=== PATIENT | male | born 1945 | race Caucasian/White ===

== ENCOUNTER 2016-08-26 20:20 | Emergency (ER) | payer OTHER, MEDICARE ==
--- NOTE | 2016-08-26 20:29 | PDOC ---
History of Present Illness - General History Source: Patient Exam Limitations: No Limitations - History of Present Illness Initial Comments: 08/26/16 20:30 The patient is a 70 year old male with history significant for hypertension, hyperlipidemia, and atrial fibrillation on Eliquis, who presents to the ED complaining of 3 days of tingling to the left side of the face, described as "sudden bursts of electricity", not radiating or persisting, with associated symptoms of nausea, lightheadedness, and shortness of breath today. He states he had similar symptoms a few weeks ago after taking 12 days of antibiotics for H. pylori found on recent endoscopy/colonoscopy. He was seen by his interist last with no significant findings. The patient denies chest pain or palpitations. He denies headache, visual changes, or focal weakness. He denies abdominal pain, vomiting, or diarrhea. He denies fever or chills. He denies recent travel. <Lesly Medina - Last Filed: 08/26/16 21:28> <Mickey Vasques - Last Filed: 08/27/16 03:15> - General Chief Complaint: Lightheaded Stated Complaint: NAUSEA, LIGHTHEADEDNESS, TINGLING TO LEFT FACE Time Seen by Provider: 08/26/16 20:29 Past History <Lesly Medina - Last Filed: 08/26/16 21:28> - Past Medical History Cardiac Disorders: Yes (arrhythmia, afib) HTN: Yes Hypercholesterolemia: Yes Kidney Stones: Yes Psychiatric Problems: Yes (anxiety) Suicide Attempt (Hx): No - Surgical History Cardiac Surgery: Yes (CARDIAC ABLATION FEB 2015) Orthopedic Surgery: (right knee sx) - Immunization History Immunization Up to Date: Yes - Psycho/Social/Smoking Cessation Hx Anxiety: Yes Suicidal Ideation: No Smoking Status: No Smoking History: Never smoked Have you smoked in the past 12 months: No Number of Cigarettes Smoked Daily: 0 Hx Alcohol Use: No Drug/Substance Use Hx: No Substance Use Type: None Hx Substance Use Treatment: No <Mickey Vasques - Last Filed: 08/27/16 03:15> - Past Medical History Allergies/Adverse Reactions: Allergies Allergy/AdvReac Type Severity Reaction Status Date / Time amoxicillin [Amoxicillin] Allergy Verified 08/26/16 20:23 Home Medications: Ambulatory Orders Apixaban [Eliquis] 5 mg PO BID 12/17/15 Diazepam [Valium] 5 mg PO ASDIR PRN 12/17/15 Metoprolol Succinate [Toprol Xl] 50 mg PO HS 12/17/15 Ondansetron HCl [Zofran] 4 mg PO QID PRN #12 tablet 08/26/16 Review of Systems - Review of Systems Able to Perform ROS?: Yes Comments:: 08/26/16 20:33 GENERAL/CONSTITUTIONAL: No fever or chills. HEAD, EYES, EARS, NOSE AND THROAT: No change in vision. No ear pain or discharge. No sore throat CARDIOVASCULAR: +Lightheadedness, shortness of breath. No chest pain or palpitations. RESPIRATORY: No cough, wheezing, or hemoptysis. GASTROINTESTINAL: +Nausea. No abdominal pain, vomiting, diarrhea or constipation. GENITOURINARY: No dysuria, frequency, or change in urination. MUSCULOSKELETAL: No joint or muscle swelling or pain. No neck or back pain. SKIN: No rash NEUROLOGIC: +L facial tingling. No headache, vertigo, loss of consciousness, or change in strength. ENDOCRINE: No increased thirst. No abnormal weight change. HEMATOLOGIC/LYMPHATIC: No anemia, easy bleeding, or history of blood clots. ALLERGIC/IMMUNOLOGIC: No hives or skin allergy. <Lesly Medina - Last Filed: 08/26/16 21:28> *Physical Exam - Physical Exam Comments: 08/26/16 20:44 GENERAL: Awake, alert, and fully oriented, in no acute distress HEAD: No signs of trauma EYES: PERRLA, EOMI, sclera anicteric, conjunctiva clear ENT: Auricles normal inspection, hearing grossly normal, nares patent, oropharynx clear without exudates. Moist mucosa NECK: Normal ROM, supple, no lymphadenopathy, JVD, or masses LUNGS: Breath sounds equal, clear to auscultation bilaterally. No wheezes, and no crackles HEART: Irregular rhythm, normal S1 and S2, no murmurs, rubs or gallops ABDOMEN: Soft, nontender, normoactive bowel sounds. No guarding, no rebound. No masses EXTREMITIES: Normal range of motion, no edema. No clubbing or cyanosis. No cords, erythema, or tenderness NEUROLOGICAL: Cranial nerves II through XII grossly intact. Normal speech, normal gait. Sensation intact throughout. 5/5 strength x all four extremities. No nystagmus, no pronator drift. SKIN: Warm, Dry, normal turgor, no rashes or lesions noted. <Lesly Medina - Last Filed: 08/26/16 21:28> ED Treatment Course - LABORATORY CBC & Chemistry Diagram: 08/26/16 20:40 08/26/16 20:40 <Lesly Medina - Last Filed: 08/26/16 21:28> - LABORATORY CBC & Chemistry Diagram: 08/26/16 20:40 08/26/16 20:40 <Mickey Vasques - Last Filed: 08/27/16 03:15> Medical Decision Making - Medical Decision Making 08/27/16 03:14 cxr: clayton, as read by me, referred to radiology for definitive results EKG: sinus at 70; nl axis, nl intervals, PVCs observed x 3 hours in ED with resolution of all symptoms elevated WBC noted ? dehydration (eleavted hct too) versus infection--the latter is not apparent stabel for dc with outpt PCP fu <Mickey Vasques - Last Filed: 08/27/16 03:15> *DC/Admit/Observation/Transfer - Attestations Scribe Attestion: 08/26/16 20:45 Documentation prepared by Lesly Medina, acting as medical administrative specialist for Mickey Vasques MD. <Lesly Medina - Last Filed: 08/26/16 21:28> <Mickey Vasques - Last Filed: 08/27/16 03:15> Diagnosis at time of Disposition: Nausea - Discharge Dispostion Disposition: HOME Condition at time of disposition: Stable - Prescriptions Prescriptions: Ondansetron HCl [Zofran] 4 mg PO QID PRN #12 tablet PRN Reason: Nausea - Patient Instructions Printed Discharge Instructions: DI for Nausea -- Adult
[2016-08-26] MEDS ORDERED: ONDANSETRON 4 MG TABLET PO ONE ×2 (20:30→20:49)
[2016-08-26 20:31] VITALS: TEMP 98; BMI 29.8
[2016-08-26 21:01] LABS: BASOPHIL 1.7 % (0-2.0); MCH 32.2 pg (25.7-33.7); MCHC 34.3 g/dl (32.0-35.9); MEAN PLT VOLUME 8.8 fl (7.5-11.1); NEUTROPHILS 58.1 % (42.8-82.8); PLATELET COUNT 189 K/MM3 (134-434); RDW 12.9 % (11.9-15.9); WHITE BLOOD COUNT 12.2 K/mm3 (4.0-10.0)
[2016-08-26 21:10] LABS: ALBUMIN 4.1 g/dl (3.5-5.0); BILIRUBIN,TOTAL 0.5 mg/dl (0.2-1.0); CALCIUM 8.8 mg/dl (8.4-10.2); CREATININE 1.3 mg/dl (0.6-1.3); TOT PROT 6.8 g/dl (6.4-8.3)
[2016-08-26 21:11] LABS: CPK(DFH) 54 IU/L (38-174)
[2016-08-26 21:29] LABS: TROPONIN I (DFP) < 0.03 ng/ml (0.03-0.50)
[2016-08-26 22:20] VITALS: BP 134/77; PULSE 62
--- NOTE | 2016-08-27 17:35 | EKG ---
Test Reason : Blood Pressure : / mmHG Vent. Rate : 070 BPM Atrial Rate : 070 BPM P-R Int : 186 ms QRS Dur : 096 ms QT Int : 432 ms P-R-T Axes : 041 036 044 degrees QTc Int : 466 ms SINUS RHYTHM WITH FREQUENT PREMATURE VENTRICULAR COMPLEXES AND PREMATURE ATRIAL COMPLEXES WHEN COMPARED WITH ECG OF 13-OCT-2014 19:01, PREMATURE VENTRICULAR COMPLEXES ARE NOW PRESENT PREMATURE ATRIAL COMPLEXES ARE NOW PRESENT Confirmed by MD MEGHNA, AYESHA ([id number]) on 08/27/2016 5:35:05 PM Referred By: GABRIEL CERVANTES Confirmed By:AYESHA COFFMAN MD
== END 2016-08-26 23:02 | disposition home or self-care (01) ==
LOC: FER 20:20
DX: R11.0 Nausea (principal); I10 Essential (primary) hypertension; E78.5 Hyperlipidemia, unspecified; I48.91 Unspecified atrial fibrillation; Z79.01 Long term (current) use of anticoagulants; Z87.442 Personal history of urinary calculi; F41.9 Anxiety disorder, unspecified
CPT/HCPCS: 36415; 71020-TC; 80053; 82550; 84484; 85025; 93005; 99285-25

== ENCOUNTER 2017-10-20 19:06 | Emergency (ER) | payer OTHER, MEDICARE ==
--- NOTE | 2017-10-20 19:08 | PDOC ---
History of Present Illness - General History Source: Patient Exam Limitations: No Limitations - History of Present Illness Initial Comments: 10/20/17 19:59 The patient is a 72 year old male with a significant PMH of arrhythmia, atrial fib, hypertension, hypercholesterolemia, and anxiety who presents to the emergency department with right ankle pain. The patient reports that he fell 4 days ago while bending over to fix his car. He reports that he lost his balance when he fell over. He states that he fell forward on his hands and twisted his right ankle. He denies any LOC or head injury. . The patient reports that since his fall he had been walking around on his foot . He reports that he has been icing his right ankle since his fall 4 days ago but reports that his right ankle pain has worsened. The patient reports that he noticed increased swelling yesterday. It is noted that the patient reports complaint of a headache.The patient denies any chest pain, shortness of breath,or dizziness. The patient denies any fever, chills, nausea, vomit, diarrhea or constipation. The patient denies any urinary symptoms. The patient denies any other complaints. PAST MEDICAL HISTORY: arrhythmia, atrial fib, hypertension, hypercholesterolemia, and anxiety PAST SURGICAL HISTORY: cardiac ablation(2014), right knee surgery. FAMILY HISTORY: no pertinent history SOCIAL HISTORY: none reported MEDICATIONS: as per nursing notes ALLERGIES: Amoxicillin General: No fevers or chills, no weakness, no weight loss HEENT: No change in vision. No sore throat,. No ear pain CardioVascular: No chest pain or shortness of breath Respiratory:No cough, or wheezing. Gastrointestinal: no nausea, vomiting, diarrhea or constipation, No rectal bleeding Genitourinary: No dysuria, hematuria, or frequency Musculoskeletal: (+) right ankle pain. Neurologic: (+)headache. No vertigo, dizziness or loss of consciousness Psychiatric: nor depression Skin: No rashes or easy bruising Endocrine: no increased thirst or abnormal weight change Allergic: no skin or latex allergy All other systems reviewed and normal GENERAL: The patient is awake, alert, and fully oriented, in no acute distress. HEAD: Normal with no signs of trauma. EYES: Pupils equal, round and reactive to light, extraocular movements intact, sclera anicteric, conjunctiva clear. EXTREMITIES: (+) ecchymosis, swelling and tenderness over lateral malleolus. No tenderness to base of fifth metatarsal.vascular distals intact. NEUROLOGICAL: Normal speech, normal gait. PSYCH: Normal mood, normal affect. SKIN: Warm, Dry, normal turgor, no rashes or lesions noted. 10/20/17 20:01 <Alina Strong - Last Filed: 10/20/17 20:01> - General History Source: Patient Exam Limitations: No Limitations - History of Present Illness Initial Comments: 10/20/17 19:42 A portion of this note was documented by scribe services under my direction. I have reviewed the details of the note, within reason, and agree with the documentation. The case summary and management plan written by me. Assessment and plan: This is a 72-year-old male who tripped twisting his right ankle approximately 4 days ago. Patient had an x-ray that was positive for disruption of the syndesmosis and probable occult fracture. Patient has been walking on the ankle for the last 4 days and has been overusing it and came in for evaluation because it is hurting more than it had been. Patient otherwise said he did not hit his head 4 days ago however he is complaining of a headache since the fall. So will obtain a head CT in addition to splinting the ankle. X-ray: Disruption of the syndesmosis with probable occult fracture Procedure note OCL posterior ankle splint applied neurovascular post splint application intact. Patient tolerated well Head CT: No acute pathology some age related changes otherwise poonam <Farooq Davies I - Last Filed: 10/20/17 21:58> - General Chief Complaint: Pain, Acute Stated Complaint: TRIPPED AND FELL INJURING RIGHT ANKLE Time Seen by Provider: 10/20/17 19:07 Past History <Alina Strong - Last Filed: 10/20/17 20:01> - Past Medical History Cardiac Disorders: Yes (arrhythmia, afib) HTN: Yes Hypercholesterolemia: Yes Kidney Stones: Yes Psychiatric Problems: Yes (anxiety) - Surgical History Cardiac Surgery: Yes (CARDIAC ABLATION FEB 2015) Orthopedic Surgery: (right knee sx) - Immunization History Immunization Up to Date: Yes - Suicide/Smoking/Psychosocial Hx Smoking Status: No Smoking History: Never smoked Have you smoked in the past 12 months: No Number of Cigarettes Smoked Daily: 0 Hx Alcohol Use: No Drug/Substance Use Hx: No Substance Use Type: None Hx Substance Use Treatment: No <Farooq Davies I - Last Filed: 10/20/17 21:58> - Past Medical History Allergies/Adverse Reactions: Allergies Allergy/AdvReac Type Severity Reaction Status Date / Time amoxicillin [Amoxicillin] Allergy Verified 10/20/17 19:08 Home Medications: Ambulatory Orders Apixaban [Eliquis] 5 mg PO BID 12/17/15 Diazepam [Valium] 5 mg PO ASDIR PRN 12/17/15 Metoprolol Succinate [Toprol Xl] 12.5 mg PO HS 12/17/15 Losartan Potassium 12.5 mg PO DAILY 10/20/17 *Physical Exam - Vital Signs Last Vital Signs Temp Pulse Resp BP Pulse Ox 98.6 F 82 16 167/90 97 10/20/17 19:12 10/20/17 19:12 10/20/17 19:12 10/20/17 19:12 10/20/17 19:12 <Alina Strong - Last Filed: 10/20/17 20:01> *DC/Admit/Observation/Transfer - Attestations Scribe Attestion: 10/20/17 20:00 Documentation prepared by Alina Strong, acting as medical equipment repairer for Farooq Davies MD. <Alina Strong - Last Filed: 10/20/17 20:01> - Discharge Dispostion Admit: No <Farooq Davies I - Last Filed: 10/20/17 21:58> Diagnosis at time of Disposition: Closed right ankle fracture Qualifiers: Encounter type: initial encounter Qualified Code(s): S82.891A - Other fracture of right lower leg, initial encounter for closed fracture - Discharge Dispostion Disposition: HOME Condition at time of disposition: Stable - Patient Instructions Additional Instructions: For the pain take ibuprofen 2 or 3 tablets 3 times a day with food don't take on an empty stomach. Alternately you can also take Tylenol. Follow-up with the orthopedist call Dr. Reid at [phone] in the morning for an appointment. Use your crutches for ambulation. Return to the emergency department immediately with ANY new, persistent or worsening symptoms. Continue any medications as previously prescribed by your physician. You should follow up with your primary doctor as soon as possible regarding today's emergency department visit. . Please make sure your doctor reviews the results of your emergency evaluation. Thank you for coming to the Emergency Department today for your care. It was a pleasure to see you today. Please note that your evaluation is INCOMPLETE until you follow-up with your doctor.
[2017-10-20 19:21] VITALS: BP 167/90; PULSE 82; TEMP 98.6; BMI 29.0
[2017-10-20] MEDS ORDERED: IBUPROFEN 600 MG TABLET (FP) PO ONE ×2 (21:59→22:00)
[2017-10-20] MEDS: IBUPROFEN 600 MG TABLET (FP) PO ONE ×2 (22:01→22:07)
[2017-10-20] MEDS ORDERED: ACETAMINOPHEN 500 MG TABLET (FP) ONE (22:03)
[2017-10-20] MEDS ORDERED: ACETAMINOPHEN 500 MG TABLET (FP) PO ONE (22:07)
== END 2017-10-20 22:08 | disposition home or self-care (01) ==
LOC: FER 19:06
PROC: 2W3QX1Z Immobilization of Right Lower Leg using Splint (ICD-10-PCS; principal; 2017-10-20)
DX: S82.891A Other fracture of right lower leg, initial encounter for closed fracture (principal); W01.0XXA Fall on same level from slipping, tripping and stumbling without subsequent striking against object, initial encounter; Y93.89 Activity, other specified; Y92.89 Other specified places as the place of occurrence of the external cause; I10 Essential (primary) hypertension; I48.91 Unspecified atrial fibrillation; E78.00 Pure hypercholesterolemia, unspecified; F41.9 Anxiety disorder, unspecified; Z88.1 Allergy status to other antibiotic agents
CPT/HCPCS: 29515; 70450-TC; 73610-TC-RT-FY; 99281-25

== ENCOUNTER 2018-01-07 13:56 | Emergency (ER) | payer OTHER, MEDICARE ==
[2018-01-07 14:02] VITALS: BMI 29.0
--- NOTE | 2018-01-07 14:24 | PDOC ---
History of Present Illness - General History Source: Patient Exam Limitations: No Limitations - History of Present Illness Initial Comments: 01/07/18 15:16 The patient is a 72 year old male, with a significant PMH of Afib, HTN, HLD, H. pylori and gout, who presents to the emergency department with nausea that began approximately 2 weeks ago. The patient states he has had intermittent nausea that last 2 to 3 minutes for 2 weeks accompanied with posterior neck pain which began 3 days ago, that radiates between the shoulder blades and up and down his head. Patient also notes vague intermittent diffuse abdomen pain. The patient denies chest pain, shortness of breath and headache. Denies fever, chills, vomit, diarrhea and constipation. Denies dysuria, frequency, urgency and hematuria. Allergies: amoxicillin Past surgical history: Cardiac Ablation, right knee surgery Social history: None reported PCP: None reported <Stevie Kern - Last Filed: 01/07/18 15:16> - General History Source: Patient Exam Limitations: No Limitations <Clinton Oconnell - Last Filed: 01/07/18 17:12> - General Chief Complaint: Nausea Stated Complaint: NAUSEA, ABD PAIN Time Seen by Provider: 01/07/18 14:05 Past History <Stevie Kern - Last Filed: 01/07/18 15:16> - Past Medical History Cardiac Disorders: Yes (arrhythmia, A-fib, aortic anuerysm) COPD: No HTN: Yes Hypercholesterolemia: Yes Kidney Stones: Yes Psychiatric Problems: Yes (anxiety) - Surgical History Cardiac Surgery: Yes (CARDIAC ABLATION, FEB 2015) Orthopedic Surgery: (right knee sx) - Immunization History Immunization Up to Date: Yes - Suicide/Smoking/Psychosocial Hx Smoking Status: No Smoking History: Never smoked Have you smoked in the past 12 months: No Number of Cigarettes Smoked Daily: 0 Hx Alcohol Use: No Drug/Substance Use Hx: No Substance Use Type: None Hx Substance Use Treatment: No <Clinton Oconnell - Last Filed: 01/07/18 17:12> - Past Medical History Allergies/Adverse Reactions: Allergies Allergy/AdvReac Type Severity Reaction Status Date / Time amoxicillin [Amoxicillin] Allergy Verified 01/07/18 13:57 Home Medications: Ambulatory Orders Apixaban [Eliquis] 5 mg PO BID 12/17/15 Losartan Potassium 25 mg PO DAILY 10/20/17 Diltiazem [Cardizem -] 120 mg PO DAILY 01/07/18 Pantoprazole Sodium [Protonix] 40 mg PO DAILY #14 tablet. 01/07/18 Ranitidine HCl [Zantac] 150 mg PO BID PRN #14 tablet 01/07/18 Review of Systems - Review of Systems Able to Perform ROS?: Yes Comments:: 01/07/18 15:17 GENERAL/CONSTITUTIONAL: No fever or chills. No weakness. HEAD, EYES, EARS, NOSE AND THROAT: No change in vision. No ear pain or discharge. No sore throat. CARDIOVASCULAR: No chest pain. No shortness of breath. RESPIRATORY: No cough, wheezing, or hemoptysis. GASTROINTESTINAL: +Nausea, +abdomen pain. No vomiting, diarrhea or constipation. GENITOURINARY: No dysuria, frequency, or change in urination. MUSCULOSKELETAL:+Posterior neck pain. No joint or muscle swelling or pain. No back pain. SKIN: No rash NEUROLOGIC: No headache, vertigo, loss of consciousness, or change in strength/ sensation. ALLERGIC/IMMUNOLOGIC: No hives or skin allergy. <Stevie Kern - Last Filed: 01/07/18 15:16> *Physical Exam - Vital Signs Last Vital Signs Temp Pulse Resp BP Pulse Ox 98.1 F 53 L 18 147/92 100 01/07/18 13:56 01/07/18 13:56 01/07/18 13:56 01/07/18 13:56 01/07/18 13:56 - Physical Exam Comments: 01/07/18 15:17 GENERAL: Awake, alert, and fully oriented, in no acute distress HEAD: No signs of trauma EYES: PERRLA, EOMI, sclera anicteric, conjunctiva clear ENT:+ Tenderness to palpation to the right cervical paraspinal muscle. Auricles normal inspection, hearing grossly normal, nares patent, oropharynx clear without exudates. Moist mucosa NECK: Normal ROM, supple, no lymphadenopathy, JVD, or masses LUNGS: Breath sounds equal, clear to auscultation bilaterally. No wheezes, and no crackles HEART: Regular rate and rhythm, normal S1 and S2, no murmurs, rubs or gallops ABDOMEN:+Tenderness to palpation RUQ,epigastric, LUQ, left mid abdomen. Normoactive bowel sounds. No guarding, no rebound. No masses EXTREMITIES: Normal range of motion, no edema. No clubbing or cyanosis. No cords, erythema, or tenderness NEUROLOGICAL: Cranial nerves II through XII grossly intact. Normal speech. SKIN: Warm, Dry, normal turgor, no rashes or lesions noted. HEENT: positive: Tonsillar Exudate <Stevie Kern - Last Filed: 01/07/18 15:16> - Vital Signs Last Vital Signs Temp Pulse Resp BP Pulse Ox 98.1 F 53 L 18 147/92 100 01/07/18 13:56 01/07/18 13:56 01/07/18 13:56 01/07/18 13:56 01/07/18 13:56 <Clinton Oconnell - Last Filed: 01/07/18 17:12> Heart Score/ECG Review #1 ECG reviewed & interpreted by me at: 14:25 01/07/18 14:23 NSR 83 with 1st degree AV block, , occasional sinus arrhythmia, no std/hermes, TWI III, normal axis, normal intervals, QTC 484 msec <Clinton Oconnell - Last Filed: 01/07/18 17:12> ED Treatment Course - LABORATORY CBC & Chemistry Diagram: 01/07/18 14:32 01/07/18 14:32 - ADDITIONAL ORDERS Additional order review: Laboratory Results 01/07/18 14:45 Urine Color Yellow Urine Appearance Clear Urine pH 5.0 Ur Specific [place] < 1.005 L Urine Protein Negative Urine Glucose (UA) Negative Urine Ketones Negative Urine Blood Negative Urine Nitrite Negative Urine Bilirubin Negative Urine Urobilinogen 0.2 Ur Leukocyte Esterase Negative - Medications Given in the ED: ED Medications Discontinued Medications Generic Name Dose Route Start Last Admin Trade Name Freq PRN Reason Stop Dose Admin Acetaminophen 1,000 mg 01/07/18 14:48 01/07/18 15:10 Ofirmev Injection - IVPB 01/07/18 14:49 1,000 mg ONCE ONE Administration Al Hydroxide/Mg Hydroxide 30 ml 01/07/18 14:48 01/07/18 15:00 Mylanta Oral Suspension - PO 01/07/18 14:49 30 ml ONCE ONE Administration <Stevie Kern - Last Filed: 01/07/18 15:16> - LABORATORY CBC & Chemistry Diagram: 01/07/18 14:32 01/07/18 14:32 <Clinton Oconnell - Last Filed: 01/07/18 17:12> Medical Decision Making - Medical Decision Making 01/07/18 14:49 A portion of this note was written by my scribe, under my supervision. Vital Signs Temp Pulse Resp BP Pulse Ox 98.1 F 53 L 18 147/92 100 01/07/18 13:56 01/07/18 13:56 01/07/18 13:56 01/07/18 13:56 01/07/18 13:56 72 year old male with pmh of HTN, HLD, afib on eliquis, hx of H. pylori, p/w nausea x 2 weeks. The patient reports several minutes of intermittent nausea. Occasionally associated with abdominal pain. No vomiting, headache, dizziness, dysuria, diarrhea, fevers, chills. Never had chest pain or shortness of breath. States feels unlike his H. pylori. Last colonoscopy and endoscopy about 1 year ago which revealed his H. Pylori, which he had taken medications for. The patient is unable to state what exacerbates or improves pain. He is also unsure of how to describe the pain. States that he tried to hold off from coming in but states because of persistence of symptoms came in. Pt also notes hx of thoracic aortic aneurysm that is currently under evaluation. It is unclear what the etiology of the patient's symptoms are. This could certainly be GERD, gastritis, or PUD given the symptoms. Will trial GERD medications and reassess. However, given comorbidities, will need to r/o ACS or cardiac equivalent, though seems quite atypical. Will also evaluate thoracic aneurysm with CT scan. Will also extend CT scan of abdomen and pelvis to assess abdomen for acute abdominal pathology. Will further investigate with diagnostics and reassess. 01/07/18 17:03 CBC, BMP 01/07/18 14:32 01/07/18 14:32 CMP Sodium 139 mmol/L (136-145) 01/07/18 14:32 Potassium 4.0 mmol/L (3.5-5.1) 01/07/18 14:32 Chloride 108 mmol/L (98-107) H 01/07/18 14:32 Carbon Dioxide 25 mmol/L (22-28) 01/07/18 14:32 Anion Gap 6 (8-16) L 01/07/18 14:32 BUN 16 mg/dl (7-18) 01/07/18 14:32 Creatinine 1.1 mg/dl (0.6-1.3) 01/07/18 14:32 Creat Clearance w eGFR > 60 (>60) 01/07/18 14:32 Random Glucose 123 mg/dl (74-106) H 01/07/18 14:32 Calcium 8.7 mg/dl (8.4-10.2) 01/07/18 14:32 Total Bilirubin 0.4 mg/dl (0.2-1.0) 01/07/18 14:32 AST 25 U/L (10-42) 01/07/18 14:32 ALT 28 U/L (10-40) D 01/07/18 14:32 Alkaline Phosphatase 61 U/L (32-92) 01/07/18 14:32 Troponin I < 0.03 ng/ml (0.00-0.06) 01/07/18 14:32 Total Protein 6.6 g/dl (6.4-8.3) 01/07/18 14:32 Albumin 3.9 g/dl (3.5-5.0) 01/07/18 14:32 Lipase 102 U/L (73-393) 01/07/18 14:32 Urine Test Results Urine Color Yellow 01/07/18 14:45 Urine Appearance Clear 01/07/18 14:45 Urine pH 5.0 (4.5-8) 01/07/18 14:45 Ur Specific [place] < 1.005 (1.005-1.025) L 01/07/18 14:45 Urine Protein Negative (NEGATIVE) 01/07/18 14:45 Urine Glucose (UA) Negative (NEGATIVE) 01/07/18 14:45 Urine Ketones Negative (NEGATIVE) 01/07/18 14:45 Urine Blood Negative (NEGATIVE) 01/07/18 14:45 Urine Nitrite Negative (NEGATIVE) 01/07/18 14:45 Urine Bilirubin Negative (NEGATIVE) 01/07/18 14:45 Ur Leukocyte Esterase Negative (NEGATIVE) 01/07/18 14:45 The chest xray reveals cardiomegaly. Chest CT and abdomen CT demonstrates only thoracic aneurysm (4cm) but no other acute findings. The patient was given medications for gastritis and feels signficant relief. I advised the patient that he should follow up with cardiology and GI. He states he has both doctors. I advised that this could potentially be an atypical variant of ACS but that to be sure, he should follow up with his cards doctor. And this could potentially be GERD/gastritis so that he should follow up GI as well. I have given delfina all the copies of his workup, and will give a prescription of protonix and zantac. <Clinton Oconnell - Last Filed: 01/07/18 17:12> *DC/Admit/Observation/Transfer - Attestations Scribe Attestion: 01/07/18 15:18 Documentation prepared by Stevie Kern, acting as medical affairs director for Clinton Oconnell MD. <Stevie Kern - Last Filed: 01/07/18 15:16> - Discharge Dispostion Decision to Admit order: No <Clinton Oconnell - Last Filed: 01/07/18 17:12> Diagnosis at time of Disposition: Gastritis Qualifiers: Gastritis type: unspecified gastritis Chronicity: unspecified Gastritis bleeding: without bleeding Qualified Code(s): K29.70 - Gastritis, unspecified, without bleeding - Discharge Dispostion Disposition: HOME Condition at time of disposition: Stable - Prescriptions Prescriptions: Pantoprazole Sodium [Protonix] 40 mg PO DAILY #14 tablet. Ranitidine HCl [Zantac] 150 mg PO BID PRN #14 tablet PRN Reason: GERD - Referrals Referrals: Leonardo Cohen MD [Staff Physician] - - Patient Instructions Printed Discharge Instructions: DI for Gastritis Additional Instructions: Please follow up with your GI doctor and archivist political history. Take the protonix and zantac as prescribed as needed. Drink plenty of fluids and rest.
[2018-01-07] MEDS ORDERED: SODIUM CHLORIDE 1,000 ML IV STA (14:45)
[2018-01-07] MEDS ORDERED: MAG HYDROX/AL HYDROX/SIMETH 30 ML UNIT-DOSE CUP PO ONE (14:48)
[2018-01-07] MEDS ORDERED: FAMOTIDINE 20 MG/50 ML IVPB 20 MG/50 ML MG IVPB ONE ×2 (14:48→14:52)
[2018-01-07] MEDS ORDERED: ACETAMINOPHEN 1000 MG/100 ML VIAL (NON FORMULARY) IVPB ONE (14:48)
[2018-01-07] MEDS ORDERED: ACETAMINOPHEN INJECTION 100 ML IVPB ONE (14:52)
[2018-01-07] MEDS ORDERED: MAG HYDROX/AL HYDROX/SIMETH 30 ML UNIT-DOSE CUP ONE (14:52)
[2018-01-07 14:55] LABS: URINE APPEARANCE CLEAR; URINE BILIRUBIN NEGATIVE (NEGATIVE); URINE COLOR YELLOW; URINE GLUCOSE (UA) NEGATIVE (NEGATIVE); URINE KETONE NEGATIVE (NEGATIVE)
[2018-01-07 14:56] LABS: URINE LEUK ESTERASE NEGATIVE (NEGATIVE); URINE NITRITE NEGATIVE (NEGATIVE); URINE PROTEIN NEGATIVE (NEGATIVE); URINE UROBILINOGEN 0.2 (0.2-1.0)
[2018-01-07 15:15] LABS: ACTIVATED PTT 35.9 SECONDS (25.2-36.5); INR 1.29 (0.82-1.09); PROTHROMBIN TIME (PATIENT) 14.4 SEC (10.2-13.0)
[2018-01-07 15:21] LABS: BASO % 0.8 % (0-2.0); EOS % 2.4 % (0-4.5); HEMOGLOBIN 14.8 GM/dl (11.7-16.9); LYMPH % 26.2 % (8-40); MCH 31.6 pg (25.7-33.7); MCHC 33.7 g/dl (32.0-35.9); MEAN CELL VOLUME 93.7 fl (80-96); MEAN PLT VOLUME 8.3 fl (7.5-11.1); MONO % 7.2 % (3.8-10.2); NEUT % 63.4 % (42.8-82.8); PLATELET COUNT 181 K/MM3 (134-434); RBC 4.69 M/mm3 (4.00-5.60); RDW 13.2 % (11.9-15.9)
[2018-01-07 15:37] LABS: ANION GAP 6 (8-16); BLOOD UREA NITROGEN 16 mg/dl (7-18); CALCIUM 8.7 mg/dl (8.4-10.2); CHLORIDE 108 mmol/L (98-107); CO2 25 mmol/L (22-28); CREATININE 1.1 mg/dl (0.6-1.3); GLUCOSE,RANDOM 123 mg/dl (74-106); SODIUM 139 mmol/L (136-145)
[2018-01-07 15:38] LABS: ALBUMIN 3.9 g/dl (3.5-5.0); ALK PHOS 61 U/L (32-92); BILIRUBIN,TOTAL 0.4 mg/dl (0.2-1.0); SGOT/AST 25 U/L (10-42); SGPT/ALT 28 U/L (10-40); TOT PROT 6.6 g/dl (6.4-8.3)
[2018-01-07] MEDS ORDERED: METOCLOPRAMIDE HCL INJECTION 10 MG/2 ML VIAL IVPUSH ONE (15:45)
[2018-01-07 16:32] LABS: LIPASE 102 U/L (73-393)
[2018-01-07 17:14] VITALS: BP 138/89; PULSE 62; TEMP 98
--- NOTE | 2018-01-08 12:48 | EKG ---
Test Reason : Blood Pressure : / mmHG Vent. Rate : 074 BPM Atrial Rate : 094 BPM P-R Int : 186 ms QRS Dur : 096 ms QT Int : 398 ms P-R-T Axes : 059 030 041 degrees QTc Int : 441 ms SINUS RHYTHM WITH MARKED SINUS ARRHYTHMIA WITH OCCASIONAL PREMATURE VENTRICULAR COMPLEXES AND PREMATURE ATRIAL COMPLEXES NONSPECIFIC ST ABNORMALITY ABNORMAL ECG WHEN COMPARED WITH ECG OF 26-AUG-2016 20:35, NO SIGNIFICANT CHANGE WAS FOUND Confirmed by CLAUDIA HART, SO ([id number]) on 01/08/2018 12:48:13 PM Referred By: DIONI Confirmed By:SO TAYLOR MD
--- NOTE | 2018-01-13 10:45 | EKG ---
Test Reason : Blood Pressure : / mmHG Vent. Rate : 091 BPM Atrial Rate : 091 BPM P-R Int : 214 ms QRS Dur : 094 ms QT Int : 408 ms P-R-T Axes : 057 024 046 degrees QTc Int : 501 ms SINUS RHYTHM WITH 1ST DEGREE A-V BLOCK WITH OCCASIONAL PREMATURE VENTRICULAR COMPLEXES PROLONGED QT ABNORMAL ECG WHEN COMPARED WITH ECG OF 07-JAN-2018 14:00, PREMATURE ATRIAL COMPLEXES ARE NO LONGER PRESENT QT HAS LENGTHENED Confirmed by CLAUDIA HART, SO ([id number]) on 01/13/2018 10:45:38 AM Referred By: DIONI Confirmed By:SO TAYLOR MD
== END 2018-01-07 17:15 | disposition home or self-care (01) ==
LOC: FER 13:56
PROC: 3E033NZ Introduction of Analgesics, Hypnotics, Sedatives into Peripheral Vein, Percutaneous Approach (ICD-10-PCS; principal; 2018-01-07)
PROC: 3E033GC Introduction of Other Therapeutic Substance into Peripheral Vein, Percutaneous Approach (ICD-10-PCS; 2018-01-07)
PROC: 3E0337Z Introduction of Electrolytic and Water Balance Substance into Peripheral Vein, Percutaneous Approach (ICD-10-PCS; 2018-01-07)
DX: K29.70 Gastritis, unspecified, without bleeding (principal); I10 Essential (primary) hypertension; E78.5 Hyperlipidemia, unspecified; I48.91 Unspecified atrial fibrillation; M10.9 Gout, unspecified; Z88.1 Allergy status to other antibiotic agents
CPT/HCPCS: 36415; 71045-TC-FY; 71275-TC; 74174-TC; 80053; 81003; 83690; 84484; 85025; 85610; 85730; 93005; 93010; 96365; 96375; 99285-25; J0131; J7030

== ENCOUNTER 2018-02-18 10:39 | Observation (INO) | payer OTHER, MEDICARE ==
[2018-02-18 10:52] VITALS: BMI 29.0
--- NOTE | 2018-02-18 10:55 | PDOC ---
Attending Attestation - Resident Resident Name: Pavan Segovia - HPI HPI: 02/18/18 18:15 Pt presents to the ED complaining of R knee pain and the acute onset of lightheadness and dizziness that occurred when he stood up. Patient has a history of gout and several days of R knee pain. Patient denies chest pain or shortness of breath. Reports that he had severe pain, and states " I had so much pain that I felt lightheaded". Has a history of presyncope with severe pain in the past. - Physicial Exam PE: 02/18/18 18:20 Agree with resident exam. PAtient is alert, and in no acute distress. Cv: RR no M/R/G. Lungs: CTA b/l Abd: soft, non tender, non distended ext: L knee--+ Mild suprapatelar erythema. Pain limited ROM. - Medical Decision Making 02/18/18 18:23 Pt presents to the ED complaining of L knee pain and presyncope, that he attributes to pain. Denies fever. Labs are within normal limits. Initial plan was to check labs and consider discharge, but patient has had another episode of severe lightheadness and diaphoresis that is not pain related. Will admit to medicine for presyncope work up. 02/18/18 18:24
--- NOTE | 2018-02-18 11:43 | PDOC ---
History of Present Illness - General Chief Complaint: Syncope/Near Syncope Stated Complaint: LT KNEE PAIN Time Seen by Provider: 02/18/18 10:55 History Source: Patient Exam Limitations: No Limitations - History of Present Illness Initial Comments: 02/18/18 12:46 72 yo male pmh of gout, afib (on eliquis), aortic aneurysm (4.2 cm) intermittent bradycardia and hypertension presents to the ED for sudden onset of sweating, warmth and feelings of passing out. Patient states this started at 10: 30 am after getting up from the seated position. Patient admits to going to [facility] ED yesterday for a gout exacerbation of left foot and was given colchicine this am. Pain in left knee is worse today and patient admits to prior episodes of possible vaso-vagal syncope. Denies chest pain, shortness of breath, palpitations, nausea, vomiting, fevers or chills. Denies unilateral neurological changes as well. Past History - Past Medical History Allergies/Adverse Reactions: Allergies Allergy/AdvReac Type Severity Reaction Status Date / Time allopurinol Allergy Verified 02/18/18 10:41 amoxicillin [Amoxicillin] Allergy Verified 02/18/18 10:41 Home Medications: Ambulatory Orders Apixaban [Eliquis] 5 mg PO BID 12/17/15 Losartan Potassium 12.5 mg PO DAILY 10/20/17 Diltiazem [Cardizem -] 120 mg PO DAILY 01/07/18 Prednisone [Deltasone] 40 mg PO DAILY 5 Days #5 tablet 02/18/18 Cardiac Disorders: Yes (arrhythmia, A-fib, aortic anuerysm) COPD: No GI Disorders: Yes (h. pylori) HTN: Yes Hypercholesterolemia: Yes Kidney Stones: Yes Psychiatric Problems: Yes (anxiety) - Surgical History Abdominal Surgery: Yes (L inguinal hernia) Cardiac Surgery: Yes (CARDIAC ABLATION, FEB 2015) Orthopedic Surgery: (right knee sx) - Immunization History Immunization Up to Date: Yes - Suicide/Smoking/Psychosocial Hx Smoking Status: No Smoking History: Never smoked Have you smoked in the past 12 months: No Number of Cigarettes Smoked Daily: 0 Hx Alcohol Use: No Drug/Substance Use Hx: No Substance Use Type: None Hx Substance Use Treatment: No Review of Systems - Review of Systems Constitutional: No: Chills, Diaphoresis (earlier this am, not currently), Fever , Weakness HEENTM: No: Blurred Vision, Double Vision Respiratory: No: Shortness of Breath, Wheezing Cardiac (ROS): No: Chest Pain, Edema, Irregular Heart Rate, Lightheadedness, Palpitations ABD/GI: No: Abdominal Distended, Nausea, Vomiting : No: Burning, Dysuria, Discharge, Frequency, Flank Pain Musculoskeletal: Yes: Gout (left knee) Neurological: Yes: Dizziness, Other (pre syncopal). No: Headache, Numbness, Paresthesia, Tingling, Tremors, Weakness *Physical Exam - Vital Signs Last Vital Signs Temp Pulse Resp BP Pulse Ox 97.7 F 68 18 152/86 100 02/18/18 10:41 02/18/18 10:41 02/18/18 10:41 02/18/18 10:41 02/18/18 11:04 - Physical Exam General Appearance: Yes: Nourished, Appropriately Dressed. No: Apparent Distress HEENT: positive: EOMI Respiratory/Chest: positive: Lungs Clear, Normal Breath Sounds. negative: Chest Tender Cardiovascular: positive: Regular Rhythm, Regular Rate, S1, S2. negative: Edema , JVD, Murmur, Bradycardia, Tachycardia Vascular Pulses: Dorsalis-Pedis (R): 2+, Doralis-Pedis (L): 2+ Gastrointestinal/Abdominal: positive: Normal Bowel Sounds, Flat, Soft. negative : Tender, Pulsatile Mass, Distended, Rebound, Tenderness Musculoskeletal: positive: Other (left knee swollen and red compared bilaterally ). 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 Patient has hx of vaso-vagal syncope after pain and admits to recent gout flare up thats not control. No LOC. EKG, Trops negative. 02/18/18 14:[address] Gonzalez who is road consultant for patients [employer], Dr. Alford. Dr. Gonzalez is unfamiliar with patient and states Dr. Alford will be back in office on Saturday . Advise patient to follow up with [employer] emma and discharged home. 02/18/18 15:58 when attempting to discharge patient home, felt another episode of lightheadedness and flushing with diaphoresis. Patient does not have PCP will admit to ED obs under symphony. *DC/Admit/Observation/Transfer Diagnosis at time of Disposition: Dizziness, Pre-syncope Gout attack Qualifiers: Gout site: knee Gout etiology: unspecified cause Laterality: left Qualified Code(s): M10.9 - Gout, unspecified - Discharge Dispostion Decision to Admit order: Yes - Prescriptions Prescriptions: Prednisone [Deltasone] 40 mg PO DAILY 5 Days #5 tablet - Referrals Referrals: Johnathon Alford [Other] - Patient Instructions Printed Discharge Instructions: DI for Gout Additional Instructions: Please return to the ER for new or worsening symptoms including but not limited to: Chest pain, heart palpitations, new back pain, shortness of breath, headaches, numbness/tingling or weakness on one side of your body or loss of consciousness. Please follow up with your PCP and [employer] within the next 72 hours. Take Prednisone as prescribed. - Post Discharge Activity
[2018-02-18] MEDS ORDERED: SODIUM CHLORIDE 500 ML IV STA (11:51)
[2018-02-18 12:37] LABS: BASO % 0.4 % (0-2.0); HEMATOCRIT 43.7 % (35.4-49); LYMPH % 9.4 % (8-40); MCH 32.2 pg (25.7-33.7); MCHC 34.2 g/dl (32.0-35.9); MEAN CELL VOLUME 94.1 fl (80-96); MEAN PLT VOLUME 8.4 fl (7.5-11.1); MONO % 9.2 % (3.8-10.2); PLATELET COUNT 155 K/MM3 (134-434); RBC 4.65 M/mm3 (4.00-5.60); RDW 13.9 % (11.9-15.9); WHITE BLOOD COUNT 10.4 K/mm3 (4.0-10.0)
[2018-02-18 13:00] LABS: ALBUMIN 3.6 g/dl (3.4-5.0); ANION GAP 2 MMOL/L (8-16); BILIRUBIN,TOTAL 0.7 mg/dL (0.2-1.0); BLOOD UREA NITROGEN 16 mg/dL (7-18); CALCIUM 8.7 mg/dL (8.5-10.1); CHLORIDE 105 mmol/L (98-107); CO2 32 mmol/L (21-32); CREATININE 1.1 mg/dL (0.7-1.3); GLUCOSE,RANDOM 133 mg/dL (74-106); POTASSIUM 5.1 mmol/L (3.5-5.1); SGOT/AST 17 U/L (15-37); SGPT/ALT 23 U/L (12-78); SODIUM 139 mmol/L (136-145)
[2018-02-18 13:04] LABS: ALK PHOS 69 U/L (45-117); TOT PROT 6.6 g/dl (6.4-8.2)
--- NOTE | 2018-02-18 13:34 | EKG ---
Test Reason : Blood Pressure : / mmHG Vent. Rate : 066 BPM Atrial Rate : 066 BPM P-R Int : 204 ms QRS Dur : 098 ms QT Int : 438 ms P-R-T Axes : 054 032 037 degrees QTc Int : 459 ms NORMAL SINUS RHYTHM NORMAL ECG WHEN COMPARED WITH ECG OF 07-JAN-2018 14:23, PREMATURE VENTRICULAR COMPLEXES ARE NO LONGER PRESENT Confirmed by Haseeb Covarrubias ([id number]) on 02/18/2018 1:33:35 PM Referred By: Confirmed By:Haseeb Covarrubias
--- NOTE | 2018-02-18 16:54 | HP ---
Admitting History and Physical - Admission Chief Complaint: pre sycope History of Present Illness: This is a 72 year old male with pmhx aortic aneurysm (4.2 cm), A fib (on Eliquis ),intermittent bradycardia and HTN, Gout presented to the ED with pre syncope symptoms. Pt had similar symptoms yesterday and went to [facility]. Pt states, he will stand up on his L leg and start to feel diaphoretic, warm, and feel like hes going to pass out. This morning the pain had worsened he took x2 colchicine. PT states the pain to his left knee is worse than any pains he has felt to his right foot where he usually has gout attack. 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 Johnathon Mcdonough from [facility] 3 weeks ago, no issues during visit. Currently, denies rodriguez, dizziness, cp, sob. He has pain to his left knee History Source: Patient Limitations to Obtaining History: No Limitations - Past Medical History Cardiovascular: Yes: Aneurysm, HTN, Other (thoracic Aneurysm) Heme/Onc: Yes: Other - Smoking History Smoking history: Never smoked Have you smoked in the past 12 months: No Aproximately how many cigarettes per day: 0 - Alcohol/Substance Use Hx Alcohol Use: No Home Medications - Allergies Allergies/Adverse Reactions: Allergies Allergy/AdvReac Type Severity Reaction Status Date / Time allopurinol Allergy Verified 02/18/18 10:41 amoxicillin [Amoxicillin] Allergy Verified 02/18/18 10:41 - Home Medications Home Medications: Ambulatory Orders Apixaban [Eliquis] 5 mg PO BID 12/17/15 Losartan Potassium 12.5 mg PO DAILY 10/20/17 Diltiazem [Cardizem -] 120 mg PO DAILY 01/07/18 Prednisone [Deltasone] 40 mg PO DAILY 5 Days #5 tablet 02/18/18 Review of Systems - Review of Systems Constitutional: reports: Diaphoresis Eyes: reports: No Symptoms HENT: reports: No Symptoms Neck: reports: No Symptoms Cardiovascular: reports: Palpitations Respiratory: reports: No Symptoms Gastrointestinal: reports: No Symptoms Genitourinary: reports: No Symptoms Musculoskeletal: reports: Other (left knee pain) Integumentary: reports: Erythema (left knee) Neurological: reports: Change in LOC, Other (warm) Endocrine: reports: No Symptoms Hematology/Lymphatic: reports: No Symptoms Psychiatric: reports: No Symptoms Physical Examination Vital Signs: Vital Signs Temperature 97.7 F 02/18/18 10:41 Pulse Rate 63 02/18/18 15:44 Respiratory Rate 17 02/18/18 15:44 Blood Pressure 131/67 02/18/18 15:44 O2 Sat by Pulse Oximetry (%) 98 02/18/18 14:11 Constitutional: Yes: Calm Eyes: Yes: Conjunctiva Clear HENT: Yes: Atraumatic Neck: Yes: Supple Cardiovascular: Yes: Pulse Irregular, S1, S2 Respiratory: Yes: Regular, CTA Bilaterally Gastrointestinal: Yes: Normal Bowel Sounds, Soft Renal/: Yes: WNL Musculoskeletal: Yes: Other (left knee erythema, tenderness to palpation) Extremities: Yes: Erythema Edema: No Peripheral Pulses WNL: Yes Neurological: Yes: Alert, Oriented, Cran Nerves II-XII Intact Labs: CBC, BMP 02/18/18 12:23 02/18/18 12:30 Imaging - Results EKG: Report Reviewed, Image Reviewed Problem List - Problems (1) Dizziness Code(s): R42 - DIZZINESS AND GIDDINESS (2) Gout attack Code(s): M10.9 - GOUT, UNSPECIFIED Qualifiers: Gout site: knee Gout etiology: unspecified cause Laterality: left Qualified Code(s): M10.9 - Gout, unspecified (3) Syncope, near Code(s): R55 - SYNCOPE AND COLLAPSE Assessment/Plan Assessment: 72 year old male with pre syncope Plan: 1. Pre syncope vs vaso vagal d/t pain - Head CT due to x2 episodes - Telemetry monitoring - Cardiac enzymes, cycle - Carotid doppler - Check orthostatics - Neurology consult 2. A fib, rate controlled - Eliquis BID - Cardizem 120mg daily 3. HTN - Cont meds 4. Acute gout - Continue prednisone 40mg daily - Trial IV tylenol x1 - Avoid NSAIDS - UA neg from 02/17 Visit type - Emergency Visit Emergency Visit: Yes Care time: The patient presented to the Emergency Department on the above date and was hospitalized for further evaluation of their emergent condition. - New Patient This patient is new to me today: Yes Date on this admission: 02/18/18 - Critical Care Critical Care patient: No Hospitalist Screening - Colonoscopy Questionnaire Colonoscopy Questionnaire: Colonoscopy Questionnaire - Patient: 50 - 75 years old and never had a screening colonoscopy: Unknown History of colon or rectal polyps, or CA: Unknown History of IBD, Crohn's disease or UC: Unknown History of abdominal radiation therapy as a child: Unknown - Relative: 1 with colon or rectal CA, or polyps at age 60 or younger: Unknown Colon or rectal CA diagnosed at age 45 or younger: Unknown Multiple relatives with colon or rectal CA: Unknown - Outcome: Screening Result: Negative Screen
[2018-02-18] MEDS ORDERED: ACETAMINOPHEN 1000 MG/100 ML VIAL (NON FORMULARY) IVPB ONE (17:26)
[2018-02-18] MEDS ORDERED: ACETAMINOPHEN INJECTION 100 ML IVPB ONE (17:48)
[2018-02-18] MEDS ORDERED: predniSONE 20 MG TABLET (UD) ONE (17:48)
[2018-02-18] MEDS: predniSONE 20 MG TABLET (UD) PO SCH (17:48)
[2018-02-18] MEDS: oxyCODONE HCL 5 MG TABLET PO PRN (23:08)
[2018-02-18] MEDS: APIXABAN 5 MG TABLET PO SCH (23:08)
[2018-02-18] MEDS ORDERED: LOSARTAN POTASSIUM 25 MG TABLET PO SCH (23:15)
[2018-02-19] MEDS: oxyCODONE HCL 5 MG TABLET PO PRN (06:10)
[2018-02-19 06:37] LABS: BASO % 0.1 % (0-2.0); HEMATOCRIT 45.8 % (35.4-49); HEMOGLOBIN 15.4 GM/dL (11.7-16.9); LYMPH % 7.8 % (8-40); MCH 31.9 pg (25.7-33.7); MCHC 33.7 g/dl (32.0-35.9); MEAN CELL VOLUME 94.7 fl (80-96); MEAN PLT VOLUME 8.7 fl (7.5-11.1); MONO % 1.4 % (3.8-10.2); NEUT % 90.7 % (42.8-82.8); PLATELET COUNT 155 K/MM3 (134-434); RBC 4.84 M/mm3 (4.00-5.60); RDW 14.1 % (11.9-15.9); WHITE BLOOD COUNT 9.7 K/mm3 (4.0-10.0)
[2018-02-19 07:24] LABS: ALBUMIN 3.6 g/dl (3.4-5.0); BLOOD UREA NITROGEN 15 mg/dL (7-18); CHLORIDE 105 mmol/L (98-107); PHOSPHOROUS 3.5 mg/dL (2.5-4.9); POTASSIUM 3.9 mmol/L (3.5-5.1); SGOT/AST 14 U/L (15-37); SODIUM 141 mmol/L (136-145)
[2018-02-19 07:27] LABS: ALK PHOS 76 U/L (45-117); ANION GAP 6 MMOL/L (8-16); BILIRUBIN,TOTAL 0.8 mg/dL (0.2-1.0); CALCIUM 8.6 mg/dL (8.5-10.1); CO2 30 mmol/L (21-32); CREATININE 1.1 mg/dL (0.7-1.3); GLUCOSE,RANDOM 164 mg/dL (74-106); MAGNESIUM 2.2 mg/dL (1.8-2.4); SGPT/ALT 23 U/L (12-78); TOT PROT 6.9 g/dl (6.4-8.2)
--- NOTE | 2018-02-19 08:10 | CON.NEURO ---
Consult - Past Medical History Cardio/Vascular: Yes: Aneurysm, HTN, Other (thoracic Aneurysm) - Alcohol/Substance Use Hx Alcohol Use: No - Smoking History Smoking history: Never smoked Have you smoked in the past 12 months: No Aproximately how many cigarettes per day: 0 Home Medications - Allergies Allergies/Adverse Reactions: Allergies Allergy/AdvReac Type Severity Reaction Status Date / Time allopurinol Allergy Verified 02/18/18 10:41 amoxicillin [Amoxicillin] Allergy Verified 02/18/18 10:41 - Home Medications Home Medications: Ambulatory Orders Apixaban [Eliquis] 5 mg PO BID 12/17/15 Losartan Potassium 12.5 mg PO DAILY 10/20/17 Diltiazem [Cardizem -] 120 mg PO DAILY 01/07/18 Prednisone [Deltasone] 40 mg PO DAILY 5 Days #5 tablet 02/18/18 Physical Exam-Neuro Vital Signs: Vital Signs Temperature 97.7 F 02/19/18 06:00 Pulse Rate 77 02/19/18 06:00 Respiratory Rate 20 02/19/18 06:00 Blood Pressure 135/83 02/19/18 06:00 O2 Sat by Pulse Oximetry (%) 97 02/18/18 22:00 Labs: CBC, BMP 02/19/18 05:30 02/19/18 05:30 Assessment/Plan cc Presyncope HPI 72 year old male history of Atrial fibrillatio, htn and aortic aneursym, htn. He came for feeing of dizziness( whole body feeling warm and he is feeling , everything isdarkening and he is going to pass out). He denies any focal neurological syptoms, including dysphagia, dysarthria or diplopia, or weakness. His ct head showed nonspecific white matter disease. He is on eliquis at home. He also have gout and was given high dose of prednisone. Patient is laying down in bed and comfortable, no acute distress. 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 White matter disease is nonspecific, he is already on anticoagulation for atrial fibrillation. Dizziness ( presyncope) seems to be cardiovascular in origin Plan- no further testing or medication from neuro point of view - He may benefit from PT - there is no need for brain mri and will follow up on carotid ultrasound. Thanking you so much Cornelius Landers MD
[2018-02-19] MEDS: APIXABAN 5 MG TABLET PO SCH (09:24)
[2018-02-19] MEDS: predniSONE 20 MG TABLET (UD) PO SCH (09:24)
[2018-02-19] MEDS ORDERED: LOSARTAN POTASSIUM 25 MG TABLET PO SCH (10:00)
--- NOTE | 2018-02-19 13:30 | ECHO ---
Name: OLAMIDE TYLER Exam:Adult Echocardiogram Study Date: 02/19/2018 08:00 AM Age: 72 yrs Reason For Study: SYNCOPE Height: 66 in Weight: 180 lb BSA: 1.9 m2 MMode/2D Measurements & Calculations IVSd: 0.83 cm Ao root diam: 4.2 cm LVIDd: 5.5 cm LA dimension: 5.3 cm LVIDs: 3.5 cm ACS: 2.2 cm LVPWd: 0.98 cm IVSs: 1.1 cm LVPWs: 1.1 cm EDV(Teich): 150.0 ml ESV(Teich): 50.1 ml Doppler Measurements & Calculations MV E max dada: 66.6 cm/sec AI P1/2t: 493.1 msec MV A max dada: 31.6 cm/sec MV E/A: 2.1 AI max dada: 449.3 cm/sec MR max dada: 509.0 cm/sec AI max P.8 mmHg MR max P.7 mmHg AI dec slope: 266.9 cm/sec2 TR max adda: 293.9 cm/sec Med Peak E' Dada: 10.3 cm/sec TR max P.5 mmHg Med E/e': 6.5 Lat Peak E' Dada: 11.8 cm/sec Lat E/e': 5.6 Procedure A two-dimensional transthoracic echocardiogram with color flow and Doppler was performed. Left Ventricle The left ventricular size, thickness and function are normal. The left ventricular ejection fraction is normal. The left ventricular wall motion is normal. Right Ventricle The right ventricle is normal in size and function. Atria The left atrium is moderately dilated. The right atrium is moderately dilated. Mitral Valve There is mild mitral valve thickening. There is no mitral valve stenosis. There is mild to moderate m itral regurgitation. Tricuspid Valve There is mild to moderate tricuspid valve thickening. There is no tricuspid stenosis. There is modera te tricuspid regurgitation. Right ventricular systolic pressure is elevated at 40-50mmHg. Aortic Valve The aortic valve is normal in structure and function. No hemodynamically significant valvular aortic stenosis. Mild aortic regurgitation. Pulmonic Valve The pulmonic valve is not well visualized. There is no pulmonic valvular stenosis. There is no pulmon ic valvular regurgitation. Great Vessels Mild aortic root dilatation. Pericardium/Pleura There is no pericardial effusion. Interpretation Summary The left ventricular size, thickness and function are normal The left ventricular ejection fraction is normal. The left ventricular wall motion is normal. Mild aortic root dilatation. The left atrium is moderately dilated. The right atrium is moderately dilated. There is moderate tricuspid regurgitation. Right ventricular systolic pressure is elevated at 40-50mmHg. There is mild to moderate mitral regurgitation. Mild aortic regurgitation. MD Quinton Moreau 02/19/2018 12:33 PM
[2018-02-19 14:48] VITALS: BP 152/80; PULSE 92; TEMP 98.9
--- NOTE | 2018-02-19 16:27 | DS ---
Physical Exam: SUBJECTIVE: Patient seen and examined OBJECTIVE: Vital Signs Period Temp Pulse Resp BP Sys/Tuttle Pulse Ox Last 24 Hr 97.7 F-98.9 F 66-92 18-20 120-152/61-84 96-99 PHYSICAL EXAM GENERAL: The patient is awake, alert, and fully oriented, in no acute distress. HEAD: Normal with no signs of trauma. EYES: PERRL, extraocular movements intact, sclera anicteric, conjunctiva clear. ENT: Ears normal, nares patent, oropharynx clear without exudates, moist mucous membranes. NECK: Trachea midline, full range of motion, supple. LUNGS: Breath sounds equal, clear to auscultation bilaterally, no wheezes, no crackles, no accessory muscle use. HEART: Regular rate and rhythm, S1, S2 without murmur, rub or gallop. ABDOMEN: Soft, nontender, nondistended, normoactive bowel sounds, no guarding, no rebound, no hepatosplenomegaly, no masses. EXTREMITIES: 2+ pulses, warm, well-perfused, no edema. NEUROLOGICAL: Cranial nerves II through XII grossly intact. Normal speech, gait not observed. PSYCH: Normal mood, normal affect. SKIN: Warm, dry, normal turgor, no rashes or lesions noted. LABS Laboratory Results - last 24 hr 02/18/18 02/19/18 02/19/18 17:57 05:30 05:30 WBC 9.7 RBC 4.84 Hgb 15.4 Hct 45.8 MCV 94.7 MCH 31.9 MCHC 33.7 RDW 14.1 Plt Count 155 MPV 8.7 Absolute Neuts (auto) 8.8 H Neutrophils % 90.7 H Lymphocytes % 7.8 L Monocytes % 1.4 L D Eosinophils % 0.0 D Basophils % 0.1 Nucleated RBC % 0 Sodium 141 Potassium 3.9 D Chloride 105 Carbon Dioxide 30 Anion Gap 6 L BUN 15 Creatinine 1.1 Creat Clearance w eGFR > 60 Random Glucose 164 H D Calcium 8.6 Phosphorus 3.5 Magnesium 2.2 Total Bilirubin 0.8 AST 14 L ALT 23 Alkaline Phosphatase 76 Creatine Kinase 65 Troponin I < 0.02 Total Protein 6.9 Albumin 3.6 HOSPITAL COURSE: Date of Admission:02/18/18 Date of Discharge: 02/19/18 Discharge Summary Reason For Visit: PRE SYNCOPE Condition: Stable - Instructions Diet, Activity, Other Instructions: Please return to the ED for any new, persistent, or worsening symptoms. Follow up with PCP in 1 week (referral enclosed) to manage your gout and new establishment for patient following Follow up with your Rn Telephone Triage next week for further work up for dizziness Complete course of steroids for gout Referrals: Johnathon Alford [Other] - 1 Week (Follow up for dizziness ) Bruno Branch MD [Staff Physician] - Emiliano Gayle MD [Staff Physician] - Disposition: HOME - Home Medications Comprehensive Discharge Medication List: Ambulatory Orders Apixaban [Eliquis] 5 mg PO BID 12/17/15 Losartan Potassium 12.5 mg PO DAILY 10/20/17 Diltiazem [Cardizem -] 120 mg PO DAILY 01/07/18 Oxycodone HCl/Acetaminophen [Percocet 5-325 mg Tablet] 1 tab PO Q4H #20 tablet MDD 6 02/19/18 Prednisone 10 mg PO ASDIR #20 tablet 02/19/18 Problem List - Problems (1) Dizziness Code(s): R42 - DIZZINESS AND GIDDINESS (2) Gout attack Code(s): M10.9 - GOUT, UNSPECIFIED Qualifiers: Gout site: knee Gout etiology: unspecified cause Laterality: left Qualified Code(s): M10.9 - Gout, unspecified (3) Syncope, near Code(s): R55 - SYNCOPE AND COLLAPSE
== END 2018-02-19 15:07 | disposition home or self-care (01) ==
LOC: JER 10:39 → JERBED 16:30 → J4W 20:12
PROVIDERS: ADMIT Hospitalist; ATTEND Nurse Practitioner Acute Care
PROC: 3E033NZ Introduction of Analgesics, Hypnotics, Sedatives into Peripheral Vein, Percutaneous Approach (ICD-10-PCS; principal; 2018-02-18)
PROC: 3E0337Z Introduction of Electrolytic and Water Balance Substance into Peripheral Vein, Percutaneous Approach (ICD-10-PCS; 2018-02-18)
DX: R55 Syncope and collapse (principal); R42 Dizziness and giddiness; M10.9 Gout, unspecified; I10 Essential (primary) hypertension; I48.91 Unspecified atrial fibrillation; I71.9 Aortic aneurysm of unspecified site, without rupture; E78.5 Hyperlipidemia, unspecified; F41.9 Anxiety disorder, unspecified; Z79.01 Long term (current) use of anticoagulants; Z88.1 Allergy status to other antibiotic agents; Z87.442 Personal history of urinary calculi
CPT/HCPCS: 36415; 70450-TC; 80053; 81003; 81015; 82550; 83735; 84100; 84484; 84550; 85025; 86618; 93005; 93010; 93306-TC; 93880-TC; 96361; 96374; 97116-GP; 97161-GP; 99283-25; 99285-25; G0378; J0131

== ENCOUNTER 2018-05-24 14:56 | Emergency (ER) | payer OTHER, MEDICARE ==
--- NOTE | 2018-05-24 15:08 | PDOC ---
History of Present Illness <Baldo Ennis - Last Filed: 05/24/18 17:34> - General History Source: Patient Exam Limitations: No Limitations - History of Present Illness Initial Comments: 05/24/18 15:56 The patient is a 72 year old male, with a significant PMH of gout, HTN and arrhythmia, who presents to the emergency department with lightheadedness that began 2 days ago. The patient states he felt lightheaded with associated symptoms of diarrhea,stomach discomfort, decrease appetite and indigestion for 2 days that has progressively worsened today. The patient states lightheadedness is exacerbated with quick movement and positional changes. The patient denies vomiting, diarrhea or constipation today, last BM was yesterday. The patient denies chest pain, shortness of breath,and headache. Denies fever, chills, nausea, vomit, diarrhea and constipation. Denies dysuria, frequency, urgency and hematuria. Allergies: allopurinol, amoxicillin Past surgical history: None reported Social history: None reported PCP: None reported <Stevie Kern - Last Filed: 05/24/18 17:36> - General Chief Complaint: Nausea Stated Complaint: NAUSEA & LIGHHEADED Time Seen by Provider: 05/24/18 15:08 Past History - Past Medical History Cardiac Disorders: Yes (arrhythmia, A-fib, aortic anuerysm) COPD: No GI Disorders: Yes (h. pylori) HTN: Yes Hypercholesterolemia: Yes Kidney Stones: Yes Psychiatric Problems: Yes (anxiety) - Surgical History Abdominal Surgery: Yes (L inguinal hernia) Cardiac Surgery: Yes (CARDIAC ABLATION, FEB 2015) Orthopedic Surgery: (right knee sx) - Immunization History Immunization Up to Date: Yes - Suicide/Smoking/Psychosocial Hx Smoking Status: No Smoking History: Never smoked Have you smoked in the past 12 months: No Number of Cigarettes Smoked Daily: 0 Hx Alcohol Use: No Drug/Substance Use Hx: No Substance Use Type: None Hx Substance Use Treatment: No <Baldo Ennis - Last Filed: 05/24/18 17:34> <Stevie Kern - Last Filed: 05/24/18 17:36> - Past Medical History Allergies/Adverse Reactions: Allergies Allergy/AdvReac Type Severity Reaction Status Date / Time allopurinol Allergy Verified 05/24/18 15:04 amoxicillin [Amoxicillin] Allergy Verified 05/24/18 15:04 Home Medications: Ambulatory Orders Apixaban [Eliquis] 5 mg PO BID 12/17/15 Diltiazem Cd [Cardizem Cd -] 240 mg PO BID 05/24/18 Review of Systems - Review of Systems Able to Perform ROS?: Yes Comments:: 05/24/18 15:58 ADULT ROS GENERAL/CONSTITUTIONAL: No fever or chills. No weakness. HEAD, EYES, EARS, NOSE AND THROAT: No change in vision. No ear pain or discharge. No sore throat. CARDIOVASCULAR: No chest pain or shortness of breath. RESPIRATORY: No cough, wheezing, or hemoptysis. GASTROINTESTINAL: +nausea. No vomiting, diarrhea or constipation. GENITOURINARY: No dysuria, frequency, or change in urination. MUSCULOSKELETAL: No joint or muscle swelling or pain. No neck or back pain. SKIN: No rash NEUROLOGIC: +Lightheadedness. No headache, loss of consciousness, or change in strength/sensation. ENDOCRINE: No increased thirst. No abnormal weight change. HEMATOLOGIC/LYMPHATIC: No anemia, easy bleeding, or history of blood clots. ALLERGIC/IMMUNOLOGIC: No hives or skin allergy. <Stevie Kern - Last Filed: 05/24/18 17:36> *Physical Exam - Vital Signs Last Vital Signs Temp Pulse Resp BP Pulse Ox 98.4 F 70 16 158/100 97 05/24/18 14:57 05/24/18 14:57 05/24/18 14:57 05/24/18 14:57 05/24/18 14:57 - Physical Exam Comments: 05/24/18 17:36 GENERAL: Awake, alert, and fully oriented, in no acute distress HEAD: No signs of trauma LUNGS: Breath sounds equal, clear to auscultation bilaterally. No wheezes, and no crackles HEART: Regular rate and rhythm, normal S1 and S2, no murmurs, rubs or gallops ABDOMEN: Soft, nontender, normoactive bowel sounds. No guarding, no rebound. No masses EXTREMITIES: Normal range of motion, no edema. No clubbing or cyanosis. No cords, erythema, or tenderness NEUROLOGICAL: Cranial nerves II through XII grossly intact. Normal speech, normal gait SKIN: Warm, Dry, normal turgor, no rashes or lesions noted. <Stevie Kern - Last Filed: 05/24/18 17:36> Moderate Sedation - Procedure Monitoring Vital Signs: Procedure Monitoring Vital Signs Temperature 98.4 F 05/24/18 14:57 Pulse Rate 70 05/24/18 14:57 Respiratory Rate 16 05/24/18 14:57 Blood Pressure 158/100 05/24/18 14:57 O2 Sat by Pulse Oximetry (%) 97 05/24/18 14:57 <Stevie Kern - Last Filed: 05/24/18 17:36> ED Treatment Course - LABORATORY CBC & Chemistry Diagram: 05/24/18 15:50 05/24/18 15:30 <Baldo Ennis - Last Filed: 05/24/18 17:34> - LABORATORY CBC & Chemistry Diagram: 05/24/18 15:50 05/24/18 15:30 <Stevie Kern - Last Filed: 05/24/18 17:36> *DC/Admit/Observation/Transfer - Discharge Dispostion Decision to Admit order: No <Baldo Ennis - Last Filed: 05/24/18 17:34> - Attestations Scribe Attestion: 05/24/18 15:58 Documentation prepared by Stevie Kern, acting as clinical medical transcriptionist for Baldo Moreno MD. . <Stevie Kern - Last Filed: 05/24/18 17:36> Diagnosis at time of Disposition: Anxiety reaction - Discharge Dispostion Disposition: HOME Condition at time of disposition: Good - Referrals Referrals: Fer Wilson [Primary Care Provider] - 2 Days - Patient Instructions Printed Discharge Instructions: DI for Anxiety -- Adult, Yoga May Help Reduce Anxiety and Stress Additional Instructions: Return to ER immediately if symptoms worsen or additional symptoms develop, otherwise follow-up with primary physician in 2-3 days
[2018-05-24 15:20] VITALS: TEMP 98.4; BMI 29.8
[2018-05-24 16:08] VITALS: BP 150/84; PULSE 73
[2018-05-24 16:19] LABS: BASO % 0.5 % (0-2.0); EOS % 3.8 % (0-4.5); HEMOGLOBIN 15.1 GM/dl (11.7-16.9); LYMPH % 27.7 % (8-40); MCH 32.4 pg (25.7-33.7); MCHC 33.5 g/dl (32.0-35.9); MEAN CELL VOLUME 96.8 fl (80-96); MEAN PLT VOLUME 9.2 fl (7.5-11.1); MONO % 7.5 % (3.8-10.2); NEUT % 60.5 % (42.8-82.8); PLATELET COUNT 169 K/MM3 (134-434); RBC 4.65 M/mm3 (4.00-5.60); RDW 12.7 % (11.9-15.9); WHITE BLOOD COUNT 6.9 K/mm3 (4.0-10.8)
[2018-05-24 16:19] LABS: INR 1.48 (0.82-1.09); PROTHROMBIN TIME (PATIENT) 16.4 SEC (10.2-13.0)
[2018-05-24 16:20] LABS: URINE APPEARANCE Clear; URINE BILIRUBIN Negative (NEGATIVE); URINE COLOR Yellow; URINE GLUCOSE (UA) Negative (NEGATIVE); URINE KETONE Negative (NEGATIVE); URINE LEUK ESTERASE Negative (NEGATIVE); URINE NITRITE Negative (NEGATIVE); URINE PROTEIN Negative (NEGATIVE); URINE UROBILINOGEN 0.2 (0.2-1.0)
[2018-05-24 16:24] LABS: ALBUMIN 3.8 g/dl (3.5-5.0); ALK PHOS 57 U/L (32-92); ANION GAP 5 MMOL/L (8-16); BILIRUBIN,TOTAL 0.7 mg/dl (0.2-1.0); BLOOD UREA NITROGEN 22 mg/dl (7-18); CALCIUM 8.7 mg/dl (8.4-10.2); CHLORIDE 109 mmol/L (98-107); CO2 24 mmol/L (22-28); CREATININE 1.1 mg/dl (0.6-1.3); GLUCOSE,RANDOM 153 mg/dl (74-106); POTASSIUM 3.6 mmol/L (3.5-5.1); SGOT/AST 22 U/L (10-42); SGPT/ALT 20 U/L (10-40); SODIUM 138 mmol/L (136-145); TOT PROT 6.6 g/dl (6.4-8.3)
[2018-05-24 16:57] LABS: EPI CELLS FEW /HPF; URIC ACID CRYSTALS 1+ /hpf (NONE SEEN); URINE RBC 0-2 /hpf (0-3); URINE WBC NONE SEEN (0-2)
--- NOTE | 2018-05-26 11:24 | EKG ---
Test Reason : Blood Pressure : / mmHG Vent. Rate : 073 BPM Atrial Rate : 073 BPM P-R Int : 218 ms QRS Dur : 098 ms QT Int : 442 ms P-R-T Axes : 053 042 040 degrees QTc Int : 486 ms SINUS RHYTHM WITH MARKED SINUS ARRHYTHMIA WITH 1ST DEGREE A-V BLOCK PROLONGED QT ABNORMAL ECG WHEN COMPARED WITH ECG OF 18-FEB-2018 10:56, NO SIGNIFICANT CHANGE WAS FOUND Confirmed by CATHY HART, KERRY ([id number]) on 05/26/2018 11:24:14 AM Referred By: Baldo Ennis Confirmed By:KERRY MORGAN MD
== END 2018-05-24 18:04 | disposition home or self-care (01) ==
LOC: FER 14:56 → SUPCPDRO 14:56 → FER 18:04
DX: F41.1 Generalized anxiety disorder (principal)
CPT/HCPCS: 36415; 71045-TC-FY; 80053; 81003; 81015; 82550; 84484; 84550; 85025; 85610; 93005; 99284-25

== ENCOUNTER 2018-06-28 18:19 | Emergency (ER) | payer OTHER, MEDICARE ==
[2018-06-28 18:41] VITALS: BP 135/92; PULSE 77; TEMP 97.4; BMI 29.5
--- NOTE | 2018-06-28 19:11 | PDOC ---
History of Present Illness - General History Source: Patient Exam Limitations: No Limitations - History of Present Illness Initial Comments: 06/28/18 19:45 The patient is a 72 year old male with a past medical history of afib (on eliquis), gout, aortic aneurysm (4.2 cm), intermittent bradycardia, and HTN here today for evaluation of epigastric pain. The patient reports that he has had intermittent epigastric pain for the past few years but has been worse in the past 10 days. He reports that his pain is diffuse about the epigastric area , running from the top to the bottom, and is worse to palpation. The patient went to urgent care prior to coming to the ER where had lab work and ultrasound which came back normal. He notes nausea, shortness of breath, and lightheadedness but reports that these are his baseline. Patient denies headache. Denies fever, chills. Denies chest pain. Denies vomiting, diarrhea. Denies lower extremity edema. Denies urinary symptoms. Allergies: allopurinol, amoxicillin Social history: Patient denies tobacco use and reports that he was a social drinker but has since stopped drinking alcohol PCP: jocelynn [employer] Outfitter: Mikel Barger <Jordan Cantor - Last Filed: 06/28/18 20:06> <Elizabeth Moody - Last Filed: 06/29/18 04:27> - General Chief Complaint: Pain, Acute Stated Complaint: EPIGASTRIC PAIN X5 DAYS Time Seen by Provider: 06/28/18 19:10 Past History <Jordan Cantor - Last Filed: 06/28/18 20:06> - Past Medical History Cardiac Disorders: Yes (arrhythmia, A-fib, aortic anuerysm) COPD: No GI Disorders: Yes (h. pylori) HTN: Yes Hypercholesterolemia: Yes Kidney Stones: Yes Psychiatric Problems: Yes (anxiety) - Surgical History Abdominal Surgery: Yes (L inguinal hernia) Cardiac Surgery: Yes (CARDIAC ABLATION, FEB 2015) Orthopedic Surgery: (right knee sx) - Immunization History Immunization Up to Date: Yes - Suicide/Smoking/Psychosocial Hx Smoking Status: No Smoking History: Never smoked Have you smoked in the past 12 months: No Number of Cigarettes Smoked Daily: 0 Information on smoking cessation initiated: No Hx Alcohol Use: No Drug/Substance Use Hx: No Substance Use Type: None Hx Substance Use Treatment: No <Elizabeth Moody - Last Filed: 06/29/18 04:27> - Past Medical History Allergies/Adverse Reactions: Allergies Allergy/AdvReac Type Severity Reaction Status Date / Time allopurinol Allergy Verified 06/28/18 18:20 amoxicillin [Amoxicillin] Allergy Verified 06/28/18 18:20 Home Medications: Ambulatory Orders Apixaban [Eliquis] 5 mg PO BID 12/17/15 Diltiazem Cd [Cardizem Cd -] 240 mg PO BID 05/24/18 LORazepam [Ativan] 0.5 mg PO TID PRN #10 tablet MDD 3 05/24/18 Omeprazole 20 mg PO DAILY #20 capsule. 06/28/18 Review of Systems - Review of Systems Able to Perform ROS?: Yes Comments:: 06/28/18 19:46 All systems are reviewed and negative except as noted in the HPI <Jordan Cantor - Last Filed: 06/28/18 20:06> *Physical Exam - Vital Signs Last Vital Signs Temp Pulse Resp BP Pulse Ox 97.4 F L 77 20 135/92 100 06/28/18 18:19 06/28/18 18:19 06/28/18 18:19 06/28/18 18:19 06/28/18 18:19 - Physical Exam Comments: 06/28/18 19:46 GENERAL: Awake, alert, and fully oriented, in no acute distress HEAD: No signs of trauma EYES: PERRLA, EOMI, sclera anicteric, conjunctiva clear ENT: +Dry mucous membranes. Auricles normal inspection, hearing grossly normal, nares patent, oropharynx clear without exudates. NECK: Normal ROM, supple, no lymphadenopathy, JVD, or masses LUNGS: Breath sounds equal, clear to auscultation bilaterally. No wheezes, and no crackles HEART: Regular rate and rhythm, normal S1 and S2, no murmurs, rubs or gallops ABDOMEN: +Moderate epigastric tender without murphys sign +Mild right and left lower quadrant tenderness. Soft, normoactive bowel sounds. No guarding, no rebound. No masses EXTREMITIES: Normal range of motion, no edema. No clubbing or cyanosis. No cords, erythema, or tenderness NEUROLOGICAL: Cranial nerves II through XII grossly intact. Normal speech, normal gait SKIN: Warm, Dry, normal turgor, no rashes or lesions noted. 06/28/18 20:07 <Jordan Cantor - Last Filed: 06/28/18 20:06> - Vital Signs Last Vital Signs Temp Pulse Resp BP Pulse Ox 97.4 F L 77 20 135/92 100 06/28/18 18:19 06/28/18 18:19 06/28/18 18:19 06/28/18 18:19 06/28/18 18:19 <Elizabeth Moody - Last Filed: 06/29/18 04:27> Moderate Sedation - Procedure Monitoring Vital Signs: Procedure Monitoring Vital Signs Temperature 97.4 F L 06/28/18 18:19 Pulse Rate 77 06/28/18 18:19 Respiratory Rate 20 06/28/18 18:19 Blood Pressure 135/92 06/28/18 18:19 O2 Sat by Pulse Oximetry (%) 100 06/28/18 18:19 <Jordan Cantor - Last Filed: 06/28/18 20:06> - Procedure Monitoring Vital Signs: Procedure Monitoring Vital Signs Temperature 97.4 F L 06/28/18 18:19 Pulse Rate 77 06/28/18 18:19 Respiratory Rate 20 06/28/18 18:19 Blood Pressure 135/92 06/28/18 18:19 O2 Sat by Pulse Oximetry (%) 100 06/28/18 18:19 <Elizabeth Moody - Last Filed: 06/29/18 04:27> ED Treatment Course - LABORATORY CBC & Chemistry Diagram: 06/28/18 19:38 06/28/18 19:38 - ADDITIONAL ORDERS Additional order review: Laboratory Results 06/28/18 19:38 Urine Color Yellow Urine Appearance Clear Urine pH 6.0 Ur Specific [place] <= 1.005 L Urine Protein Negative Urine Glucose (UA) Negative Urine Ketones Negative Urine Blood Negative Urine Nitrite Negative Urine Bilirubin Negative Urine Urobilinogen 0.2 Ur Leukocyte Esterase Negative - Medications Given in the ED: ED Medications Discontinued Medications Generic Name Dose Route Start Last Admin Trade Name Freq PRN Reason Stop Dose Admin Pantoprazole Sodium 40 mg 06/28/18 19:26 06/28/18 19:37 Protonix Iv IVPB 06/28/18 19:27 40 mg ONCE ONE Administration <Jordan Cantor - Last Filed: 06/28/18 20:06> - LABORATORY CBC & Chemistry Diagram: 06/28/18 19:38 06/28/18 19:38 <Elizabeth Moody - Last Filed: 06/29/18 04:27> Progress Note - Progress Note Progress Note: Documentation has been prepared under my direction and personally reviewed by me in its entirety. I attest that this documented accurately reflects all work, treatment, procedures and medical decision making performed by me. 12-lead electrocardiogram was performed: Preliminary readingnormal sinus rhythm at 67 beats per minute; wave forms, axis and intervals are all normal. No evidence of acute ST or T-wave abnormalities. No evidence of acute cardiac arrhythmia. <Elizabeth Moody - Last Filed: 06/29/18 04:27> Medical Decision Making - Medical Decision Making As noted above, this 72-year-old man with history of H. pylori infection and gastritis presents with several week history of worsening of his chronic epigastric pain. The patient has been prescribed Prilosec daily but he takes it intermittently. There is no chest pain/shortness of breath or other symptoms consistent with myocardial ischemia or other cardiac issues. Exam as noted Patient was given Protonix 40 mg IV while laboratory evaluation was completed. Patient symptoms have largely resolved after Protonix IV. Laboratory evaluation shows essentially normal values. Patient will be discharged with prescription for Prilosec 20 mg daily (patient states that he did not tolerate 40 mg Prilosec daily in the past, stating that he ""thought it was too strong". <Elizabeth Moody - Last Filed: 06/29/18 04:27> *DC/Admit/Observation/Transfer - Attestations Scribe Attestion: 06/28/18 19:46 Documentation prepared by GARRY Mccartney, acting as emergency medical dispatcher for Elizabeth Moody MD. <Jordan Cantor - Last Filed: 06/28/18 20:06> <Elizabeth Moody - Last Filed: 06/29/18 04:27> Diagnosis at time of Disposition: Gastritis Qualifiers: Gastritis type: unspecified gastritis Chronicity: acute Gastritis bleeding: without bleeding Qualified Code(s): K29.00 - Acute gastritis without bleeding - Discharge Dispostion Disposition: HOME Condition at time of disposition: Stable - Prescriptions Prescriptions: Omeprazole 20 mg PO DAILY #20 capsule.dr - Referrals Referrals: Ed Sheldon MD [Staff Physician] - 1 week - Patient Instructions Printed Discharge Instructions: Gastritis Additional Instructions: [place] diet; drink plenty of water Prilosec 20 mg daily Return to ER immediately if you have severe pain/vomiting/fever Call Dr. Sheldon's office (software tools build engineer) on June 30 arrange follow- up within 1 week
[2018-06-28] MEDS ORDERED: PANTOPRAZOLE SODIUM 40 MG VIAL IVPB ONE (19:26)
[2018-06-28] MEDS ORDERED: PANTOPRAZOLE SODIUM 40 MG VIAL ONE (19:28)
[2018-06-28 19:43] LABS: URINE APPEARANCE Clear; URINE BILIRUBIN Negative (NEGATIVE); URINE COLOR Yellow; URINE GLUCOSE (UA) Negative (NEGATIVE); URINE KETONE Negative (NEGATIVE); URINE LEUK ESTERASE Negative (NEGATIVE); URINE NITRITE Negative (NEGATIVE); URINE PROTEIN Negative (NEGATIVE); URINE UROBILINOGEN 0.2 (0.2-1.0)
[2018-06-28 19:47] LABS: BASO % 1.2 % (0-2.0); EOS % 2.2 % (0-4.5); HEMATOCRIT 45.5 % (35.4-49); LYMPH % 29.6 % (8-40); MCH 31.8 pg (25.7-33.7); MEAN CELL VOLUME 96.3 fl (80-96); MEAN PLT VOLUME 8.6 fl (7.5-11.1); MONO % 8.8 % (3.8-10.2); NEUT % 58.2 % (42.8-82.8); PLATELET COUNT 179 K/MM3 (134-434); RBC 4.72 M/mm3 (4.00-5.60); RDW 12.4 % (11.9-15.9); WHITE BLOOD COUNT 7.3 K/mm3 (4.0-10.8)
[2018-06-28 20:02] LABS: ALBUMIN 3.8 g/dl (3.5-5.0); ALK PHOS 54 U/L (32-92); ANION GAP 6 MMOL/L (8-16); BILIRUBIN,TOTAL 1.4 mg/dl (0.2-1.0); BLOOD UREA NITROGEN 14 mg/dl (7-18); CALCIUM 8.6 mg/dl (8.4-10.2); CHLORIDE 106 mmol/L (98-107); CO2 24 mmol/L (22-28); CREATININE 0.9 mg/dl (0.6-1.3); GLUCOSE,RANDOM 107 mg/dl (74-106); POTASSIUM 3.7 mmol/L (3.5-5.1); SGOT/AST 24 U/L (10-42); SGPT/ALT 17 U/L (10-40); SODIUM 136 mmol/L (136-145); TOT PROT 6.2 g/dl (6.4-8.3)
[2018-06-28 20:26] LABS: LIPASE 98 U/L (73-393)
--- NOTE | 2018-06-29 17:06 | EKG ---
Test Reason : Blood Pressure : / mmHG Vent. Rate : 067 BPM Atrial Rate : 067 BPM P-R Int : 202 ms QRS Dur : 100 ms QT Int : 436 ms P-R-T Axes : 065 012 026 degrees QTc Int : 460 ms NORMAL SINUS RHYTHM WITH 1ST DEGREE A-V BLOCK NONSPECIFIC ST ABNORMALITY ABNORMAL ECG Confirmed by MD CANDELARIO, MARKUS ([id number]) on 06/29/2018 5:06:13 PM Referred By: BARBARA Confirmed By:MARKUS PALOMINO MD
== END 2018-06-28 20:45 | disposition home or self-care (01) ==
LOC: FER 18:19
PROC: 3E033GC Introduction of Other Therapeutic Substance into Peripheral Vein, Percutaneous Approach (ICD-10-PCS; principal; 2018-06-28)
DX: K29.00 Acute gastritis without bleeding (principal); I48.91 Unspecified atrial fibrillation; Z79.01 Long term (current) use of anticoagulants; I10 Essential (primary) hypertension; E78.00 Pure hypercholesterolemia, unspecified; F41.9 Anxiety disorder, unspecified
CPT/HCPCS: 36415; 80053; 81003; 82550; 83690; 84484; 84550; 85025; 93005; 99283-25

== ENCOUNTER 2018-08-19 13:32 | Emergency (ER) | payer OTHER, MEDICARE ==
[2018-08-19 13:42] VITALS: BP 149/90; PULSE 65; TEMP 97.7; BMI 29.0
--- NOTE | 2018-08-19 14:43 | PDOC ---
History of Present Illness - General Chief Complaint: Pain Stated Complaint: LEFT SHOULDER PAIN FOR 2-3 MONTHS HAS HAD EPIDURA Time Seen by Provider: 08/19/18 14:36 - History of Present Illness Initial Comments: 08/19/18 15:11 72 years old past medical history significant for A. fib on Elliquist, gout, hypertension presents to the emergency department with 2 complaints First complaint chronic left shoulder pain. Patient states his imaging demonstrating to impinge nerves on the left side of his neck he has received 2 steroid injections for this but continues to have persistent pain which radiates from his shoulder to his chest this has been chronic persistent constant for the last several months he presents to the ED today requesting a second opinion Patient's second complaint he was told that he had melena by his doctor and is scheduled for GI follow-up tomorrow over the past week he has been complaining of mild lightheadedness and dizziness which has been persistent constant with no exacerbating or alleviating factors has not had any new hematemesis or hematochezia The symptom appears to be persistent constant patient hemodynamically stable no new symptoms at this time. Past History - Past Medical History Allergies/Adverse Reactions: Allergies Allergy/AdvReac Type Severity Reaction Status Date / Time amoxicillin [Amoxicillin] Allergy Severe Difficulty Verified 08/19/18 13:33 Breathing allopurinol Allergy Intermediate Rash Verified 08/19/18 13:34 Home Medications: Ambulatory Orders Apixaban [Eliquis] 5 mg PO BID 12/17/15 Diltiazem Cd [Cardizem Cd -] 120 mg PO DAILY 05/24/18 Cardiac Disorders: Yes (arrhythmia, A-fib, aortic anuerysm) COPD: No GI Disorders: Yes (h. pylori) HTN: Yes Hypercholesterolemia: Yes Kidney Stones: Yes Psychiatric Problems: Yes (anxiety) Other medical history: ARTHRITIS - Surgical History Abdominal Surgery: Yes (L inguinal hernia) Cardiac Surgery: Yes (CARDIAC ABLATION, FEB 2015) Orthopedic Surgery: (right knee sx) - Immunization History Immunization Up to Date: Yes - Suicide/Smoking/Psychosocial Hx Smoking Status: No Smoking History: Never smoked Have you smoked in the past 12 months: No Number of Cigarettes Smoked Daily: 0 Information on smoking cessation initiated: No Hx Alcohol Use: No Drug/Substance Use Hx: No Substance Use Type: None Hx Substance Use Treatment: No Review of Systems - Review of Systems Comments:: 08/19/18 15:12 ROS: A complete review of 10 out of 10 review of systems is taken and is negative apart from what is previously mentioned below and in the HPI. *Physical Exam - Vital Signs Last Vital Signs Temp Pulse Resp BP Pulse Ox 97.7 F 65 16 149/90 100 08/19/18 13:33 08/19/18 13:33 08/19/18 13:33 08/19/18 13:33 08/19/18 13:33 - Physical Exam Comments: 08/19/18 15:12 Vitals: Triage Vital signs reviewed General Appearance: no acute distress, well nourished well developed, Head: Atraumatic, Neck: Supple;No Nucal rigidity Chest Wall: Nontender Cardiac: Regular rate and rhythym, no murmurs, no rubs, no gallops, Lungs: Clear to auscultation bilateral, good air movement bilaterally, Abdomen: Soft, non distended, normal bowel sounds, non tender to palpation Rectal: Brown stool Extremities: Full range of motion to all extremities, no cyanosis, clubbing, or edema Skin: Warm and dry, no rashes or lesions, no rash, no petechiae Psych: normal mood, normal affect Moderate Sedation - Procedure Monitoring Vital Signs: Procedure Monitoring Vital Signs Temperature 97.7 F 08/19/18 13:33 Pulse Rate 65 08/19/18 13:33 Respiratory Rate 16 08/19/18 13:33 Blood Pressure 149/90 08/19/18 13:33 O2 Sat by Pulse Oximetry (%) 100 08/19/18 13:33 ED Treatment Course - LABORATORY CBC & Chemistry Diagram: 08/19/18 15:24 08/19/18 15:24 Medical Decision Making - Medical Decision Making 08/19/18 15:13 Patient with 2 complaints chronic shoulder pain normal shoulder examination Second complaint given patient on anticoagulation with possible melena we'll check labs coags type and screen fecal occult blood observe and reassess 08/19/18 16:45 Brown stool stable hemoglobin and hematocrit patient stable for outpatient follow-up tomorrow with gastroenterology EKG demonstrates normal sinus rhythm no ST elevations or T-wave inversions. Interpreted by me. Troponin negative We'll recommend orthopedic follow-up GI follow-up and strict return instructions for any significant bleeding. *DC/Admit/Observation/Transfer Diagnosis at time of Disposition: Shoulder pain Qualifiers: Chronicity: chronic Laterality: left Qualified Code(s): M25.512 - Pain in left shoulder; G89.29 - Other chronic pain - Discharge Dispostion Disposition: HOME Condition at time of disposition: Stable Decision to Admit order: No - Referrals Referrals: Mateus Reid MD [Staff Physician] - - Patient Instructions Printed Discharge Instructions: DI for Shoulder Pain Additional Instructions: Follow-up with Dr. Reid orthopedics for further management of her chronic shoulder pain. 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 Return to ED for any severe worsening symptoms or for any concerns. - Post Discharge Activity
[2018-08-19 15:42] LABS: BASO % 0.7 % (0-2.0); HEMATOCRIT 46.4 % (35.4-49); HEMOGLOBIN 15.5 GM/dl (11.7-16.9); LYMPH % 25.8 % (8-40); MCH 32.2 pg (25.7-33.7); MCHC 33.4 g/dl (32.0-35.9); MEAN CELL VOLUME 96.3 fl (80-96); MEAN PLT VOLUME 8.9 fl (7.5-11.1); MONO % 8.1 % (3.8-10.2); NEUT % 63.4 % (42.8-82.8); PLATELET COUNT 183 K/MM3 (134-434); RBC 4.82 M/mm3 (4.00-5.60); RDW 12.8 % (11.9-15.9); WHITE BLOOD COUNT 7.9 K/mm3 (4.0-10.8)
[2018-08-19 15:49] LABS: ALBUMIN 3.9 g/dl (3.4-5.0); ALK PHOS 60 U/L (45-117); ANION GAP 6 MMOL/L (8-16); BILIRUBIN,TOTAL 1.3 mg/dl (0.2-1); BLOOD UREA NITROGEN 16 mg/dl (7-18); CALCIUM 9.1 mg/dl (8.5-10); CHLORIDE 104 mmol/L (98-107); CO2 27 mmol/L (21-32); GLUCOSE,RANDOM 104 mg/dl (74-106); SGOT/AST 19 U/L (15-37); SGPT/ALT 21 U/L (13-61); SODIUM 137 mmol/L (136-145); TOT PROT 6.6 g/dl (6.4-8.2)
[2018-08-19 15:55] LABS: ACTIVATED PTT 33.6 SECONDS (25.2-36.5)
[2018-08-19 15:59] LABS: INR 1.28 (0.82-1.09); PROTHROMBIN TIME (PATIENT) 14.3 SEC (10.2-13.0)
--- NOTE | 2018-08-20 10:47 | EKG ---
Test Reason : Blood Pressure : / mmHG Vent. Rate : 060 BPM Atrial Rate : 060 BPM P-R Int : 200 ms QRS Dur : 098 ms QT Int : 448 ms P-R-T Axes : 055 047 050 degrees QTc Int : 448 ms NORMAL SINUS RHYTHM NORMAL ECG WHEN COMPARED WITH ECG OF 28-JUN-2018 18:51, NO SIGNIFICANT CHANGE WAS FOUND Confirmed by SO TAYLOR MD ([id number]) on 08/20/2018 10:47:13 AM Referred By: DR OBREGON Confirmed By:SO TAYLOR MD
== END 2018-08-19 16:58 | disposition home or self-care (01) ==
LOC: FER 13:32
DX: G89.29 Other chronic pain (principal); I10 Essential (primary) hypertension; F41.9 Anxiety disorder, unspecified; I48.91 Unspecified atrial fibrillation
CPT/HCPCS: 36415; 80053; 82272; 83690; 84484; 85025; 85610; 85730; 86850; 86900; 86901; 93005; 99283-25

== ENCOUNTER 2018-10-10 21:07 | Emergency (ER) | payer OTHER, MEDICARE ==
[2018-10-10 21:32] VITALS: PULSE 64; TEMP 98.3; BMI 29.0
[2018-10-10] MEDS ORDERED: ACETAMINOPHEN 500 MG TABLET (FP) PO ONE (21:37)
[2018-10-10] MEDS ORDERED: cloNIDine HCL 0.1 MG TABLET PO ONE (21:37)
[2018-10-10] MEDS ORDERED: cloNIDine HCL 0.1 MG TABLET ONE (21:46)
[2018-10-10] MEDS ORDERED: ACETAMINOPHEN 500 MG TABLET (FP) ONE (21:46)
--- NOTE | 2018-10-10 21:47 | PDOC ---
Documentation entered by China Brito SCRIBE, acting as scribe for Farooq Davies MD. Farooq Davies MD: This documentation has been prepared by the Daryl barnard Nirvannie, SCRIBE, under my direction and personally reviewed by me in its entirety. I confirm that the documentation accurately reflects all work, treatment, procedures, and medical decision making performed by me. History of Present Illness - General Chief Complaint: Headache Stated Complaint: HEADACHE/NAUSEA/HTN Time Seen by Provider: 10/10/18 21:20 History Source: Patient Exam Limitations: No Limitations - History of Present Illness Initial Comments: 10/10/18 21:45 HPI: The patient is a 73 year old male, with a significant past medical history of afib (on eliquis), gout, kidney stones, anxiety, aortic aneurysm (4.2 cm), intermittent bradycardia, HLD, and HTN, who presents to the emergency department with, elevated blood pressure and headache. As per patient, he tested his blood pressure this morning when his headache initially onset and noticed his systolic blood pressure to be elevated to 154. He notes his symptoms persisted prompting his to repeat his blood pressure reading at which time he noticed a reading of 167/95. He notes taking half of a 25 mg Losartan prompting his arrival to the ED. He denies any recent fevers, chills, or dizziness. He denies any recent nausea, vomit, diarrhea or constipation. He denies any recent chest pain or shortness of breath. He denies any recent dysuria, frequency, urgency or hematuria. PAST MEDICAL HISTORY: no significant history PAST SURGICAL HISTORY: no significant history FAMILY HISTORY: no pertinent history SOCIAL HISTORY: Pt lives with family and is employed. MEDICATIONS: reviewed ALLERGIES: As per nursing notes ROS: General: +Elevated blood pressure. No fevers or chills, no weakness, no weight loss HEENT: No change in vision. No sore throat,. No ear pain CardioVascular: No chest pain or shortness of breath Respiratory:No cough, or wheezing. Gastrointestinal: no nausea, vomiting, diarrhea or constipation, No rectal bleeding Genitourinary: No dysuria, hematuria, or frequency Musculoskeletal: No joint or muscle pain or swelling Neurologic: +Headache. No vertigo, dizziness or loss of consciousness Psychiatric: nor depression Skin: No rashes or easy bruising Endocrine: no increased thirst or abnormal weight change Allergic: no skin or latex allergy All other systems reviewed and normal Physical Exam: General: Well-nourished well-developed individual, no acute distress HEENT: Throat: Normal, tonsils normal, no erythema or exudate Neck: Supple, no meningeal signs, no lymphadenopathy Eyes::Pupils equal reactive and round, extraocular motion intact Chest: Nontender to palpation Cardiac: S1-S2 normal, regular rate and rhythm, no murmurs rubs or gallops Respiratory: Lungs clear to auscultation bilateral Abdomen: Soft, nondistended, normal bowel sounds, nontender to palpation diffusely Extremities: Warm, dry, no cyanosis, clubbing, or edema Skin: No rashes Neuro: Alert and oriented x3, nonfocal exam, grossly intact, normal gait Psych: Normal mood and affect 10/10/18 21:46 Assessment and plan: This is a 73-year-old male who comes in complaining of elevated blood pressure and headache. Patient otherwise denies any symptoms. Patient has a normal exam including a normal neural exam. Patient given some Tylenol and clonidine 10/10/18 22:46 Repeat patient's blood pressure is 113 systolic. Patient feels better headache is resolved. Patient will be discharged home Past History - Past Medical History Allergies/Adverse Reactions: Allergies Allergy/AdvReac Type Severity Reaction Status Date / Time amoxicillin [Amoxicillin] Allergy Severe Difficulty Verified 08/19/18 13:33 Breathing allopurinol Allergy Intermediate Rash Verified 08/19/18 13:34 Home Medications: Ambulatory Orders Apixaban [Eliquis] 5 mg PO BID 12/17/15 Diltiazem Cd [Cardizem Cd -] 120 mg PO DAILY 05/24/18 Duloxetine HCl [Cymbalta] 20 mg PO DAILY 10/10/18 Cardiac Disorders: Yes (arrhythmia, A-fib, aortic anuerysm) COPD: No GI Disorders: Yes (h. pylori) HTN: Yes Hypercholesterolemia: Yes Kidney Stones: Yes Psychiatric Problems: Yes (anxiety) - Surgical History Abdominal Surgery: Yes (L inguinal hernia) Cardiac Surgery: Yes (CARDIAC ABLATION, FEB 2015) Orthopedic Surgery: (right knee sx) - Immunization History Immunization Up to Date: Yes - Suicide/Smoking/Psychosocial Hx Smoking Status: No Smoking History: Unknown if ever smoked Have you smoked in the past 12 months: No Number of Cigarettes Smoked Daily: 0 Information on smoking cessation initiated: No Hx Alcohol Use: No Drug/Substance Use Hx: No Substance Use Type: None Hx Substance Use Treatment: No *Physical Exam - Vital Signs Last Vital Signs Temp Pulse Resp BP Pulse Ox 98.3 F 64 16 167/95 97 10/10/18 21:12 10/10/18 21:12 10/10/18 21:12 10/10/18 21:12 10/10/18 21:12 *DC/Admit/Observation/Transfer Diagnosis at time of Disposition: Headache, Essential hypertension - Discharge Dispostion Disposition: HOME Condition at time of disposition: Stable Decision to Admit order: No - Referrals - Patient Instructions Additional Instructions: Return to the emergency department immediately with ANY new, persistent or worsening symptoms. Continue any medications as previously prescribed by your physician. You should follow up with your primary doctor as soon as possible regarding today's emergency department visit. . Please make sure your doctor reviews the results of your emergency evaluation. Thank you for coming to the Emergency Department today for your care. It was a pleasure to see you today. Please note that your evaluation is INCOMPLETE until you follow-up with your doctor. - Post Discharge Activity
[2018-10-10 22:27] VITALS: BP 113/63
== END 2018-10-10 22:49 | disposition home or self-care (01) ==
LOC: FER 21:07
DX: I10 Essential (primary) hypertension (principal); R51 Headache; I48.91 Unspecified atrial fibrillation; Z79.01 Long term (current) use of anticoagulants; E78.5 Hyperlipidemia, unspecified; M10.9 Gout, unspecified; I71.9 Aortic aneurysm of unspecified site, without rupture; Z88.0 Allergy status to penicillin; Z88.8 Allergy status to other drugs, medicaments and biological substances
CPT/HCPCS: 99282-25; J0735

== ENCOUNTER 2018-12-30 14:34 | Emergency (ER) | payer OTHER, MEDICARE ==
[2018-12-30] MEDS ORDERED: LIDOCAINE 5% TOPICAL PATCH TP ONE (14:37)
[2018-12-30] MEDS ORDERED: ACETAMINOPHEN 325 MG TABLET (FP) PO ONE (14:38)
[2018-12-30 14:46] VITALS: TEMP 97.7; BMI 27.9
[2018-12-30] MEDS ORDERED: ACETAMINOPHEN 325 MG TABLET (FP) ONE (14:54)
[2018-12-30] MEDS ORDERED: LIDOCAINE 5% TOPICAL PATCH ONE (14:55)
[2018-12-30] MEDS ORDERED: SODIUM CHLORIDE 0.9% 500 ML INFUS.BAG IV ONE (15:06)
[2018-12-30] MEDS ORDERED: FAMOTIDINE 20 MG/50 ML IVPB 20 MG/50 ML MG IVPB ONE (15:07)
[2018-12-30] MEDS ORDERED: MAG HYDROX/AL HYDROX/SIMETH 30 ML UNIT-DOSE CUP PO ONE (15:08)
[2018-12-30] MEDS ORDERED: MAG HYDROX/AL HYDROX/SIMETH 30 ML UNIT-DOSE CUP ONE (15:13)
--- NOTE | 2018-12-30 15:55 | PDOC ---
Documentation entered by Jordan Cantor SCRIBE, acting as scribe for Katlyn Oneill MD. Katlyn Oneill MD: This documentation has been prepared by the Devaughn barnard Daniel, SCRIBE, under my direction and personally reviewed by me in its entirety. I confirm that the documentation accurately reflects all work, treatment, procedures, and medical decision making performed by me. History of Present Illness - General Chief Complaint: Lightheaded Stated Complaint: MOVES AND FEELS DIZZY FOR 3 WEEKS Time Seen by Provider: 12/30/18 14:41 History Source: Patient Exam Limitations: No Limitations - History of Present Illness Initial Comments: 12/30/18 15:08 The patient is a 73 year old male with a past medical history of afib (on eliquis), gout, kidney stones, anxiety, ascending aortic aneurysm (4 cm, last checked in 2013 and was stable), intermittent bradycardia, HLD, and HTN here today for evaluation of lightheadedness and chest discomfort x 3 weeks. The patient reports that he has had 3 weeks of lightheadedness, weakness, left sided neck pain, and burning chest pain radiating to abdomen and maybe coming from the left shoulder (from chronic frozen shoulder) that occurs after any physical movement. He notes that his chest pain travels from the middle of his chest down to his abdomen and describes the "burning with ants crawling." He also notes feeling imbalanced while walking, nauseous, and feeling bloated. Patient denies headache. Denies fever, chills. Denies vomiting, diarrhea. Denies urinary symptoms. Allergies: amoxicillin, allopurinol PCP: Meri Garrison 12/30/18 16:09 Past History - Past Medical History Allergies/Adverse Reactions: Allergies Allergy/AdvReac Type Severity Reaction Status Date / Time amoxicillin [Amoxicillin] Allergy Severe Difficulty Verified 08/19/18 13:33 Breathing allopurinol Allergy Intermediate Rash Verified 08/19/18 13:34 Home Medications: Ambulatory Orders Apixaban [Eliquis] 5 mg PO BID 12/17/15 Diltiazem Cd [Cardizem Cd -] 120 mg PO DAILY 05/24/18 Ranitidine [Zantac -] 1 tab PO BID 12/30/18 Cardiac Disorders: Yes (arrhythmia, A-fib, aortic anuerysm) COPD: No GI Disorders: Yes (h. pylori) HTN: Yes Hypercholesterolemia: Yes Kidney Stones: Yes Psychiatric Problems: Yes (anxiety) - Surgical History Abdominal Surgery: Yes (L inguinal hernia) Cardiac Surgery: Yes (CARDIAC ABLATION, FEB 2015) Orthopedic Surgery: (right knee sx) - Immunization History Immunization Up to Date: Yes - Suicide/Smoking/Psychosocial Hx Smoking Status: No Smoking History: Unknown if ever smoked Have you smoked in the past 12 months: No Number of Cigarettes Smoked Daily: 0 Hx Alcohol Use: No Drug/Substance Use Hx: No Substance Use Type: None Hx Substance Use Treatment: No Review of Systems - Review of Systems Able to Perform ROS?: Yes Comments:: 12/30/18 15:08 GENERAL/CONSTITUTIONAL: +weakness. No fever or chills. No sweats. HEAD, EYES, EARS, NOSE AND THROAT: No change in vision or hearing. no congestion. +dizziness. CARDIOVASCULAR: +chest pain. No palpitations, syncope or edema. RESPIRATORY: No SOB, cough, wheezing, or hemoptysis. GASTROINTESTINAL: +nausea. No vomiting. No diarrhea or constipation. No bloody stools. GENITOURINARY: No hematuria, dysuria, frequency, urgency or other changes. MUSCULOSKELETAL: No joint or muscle swelling or pain. No decreased range of motion. No neck or back pain. SKIN: No rash or changes in skin color or lesions. No wounds. NEUROLOGIC: +lightheaded. alert and oriented appropriately No headache, loss of consciousness, or change in strength/sensation. +imbalance. HEMATOLOGIC/LYMPHATIC: No anemia, easy bruising/bleeding, or history of blood clots. ALLERGIC/IMMUNOLOGIC: medication allergies PSYCH: no anxiety/depression All other systems reviewed and negative, or as documented in HPI. 12/30/18 16:10 *Physical Exam - Vital Signs Last Vital Signs Temp Pulse Resp BP Pulse Ox 97.7 F 89 18 148/107 H 98 12/30/18 14:36 12/30/18 14:36 12/30/18 14:36 12/30/18 14:36 12/30/18 14:36 - Physical Exam Comments: 12/30/18 15:10 General: Well appearing, awake and alert, NAD. HEENT: NCAT, PERRL, EOMI, clear conjunctiva, anicteric, moist mucus membranes, clear oropharynx, no oral lesions.. Neck: neck supple, FROM; left trapezius and lateral neck TTP, point tenderness and reproducible Resp: CTAB, normal and even respirations, no respiratory distress CVS: +irregularly regular. Regular rate, no murmurs, 2+ peripheral pulses throughout, no peripheral edema Abdomen: soft, NTND, no rebound or guarding. No CVAT. Back: nontender, normal inspection and ROM MSK: no edema, GONZALES x4, ROM intact. No clubbing or cyanosis. normal bulk and tone. Extremities: no calf tenderness Neuro: alert, oriented appropriately; no focal neurologic deficits, gait stable ambulatory Skin: warm and well perfused, cap refill <2 sec, normal color 12/30/18 16:11 ED Treatment Course - LABORATORY CBC & Chemistry Diagram: 12/30/18 15:56 12/30/18 15:56 - RADIOLOGY Radiology Studies Ordered: Category Date Time Status CHEST X-RAY PORTABLE* [RAD] Stat Radiology 12/30/18 15:06 Taken - Medications Given in the ED: ED Medications Discontinued Medications Generic Name Dose Route Start Last Admin Trade Name Freq PRN Reason Stop Dose Admin Acetaminophen 975 mg 12/30/18 14:38 12/30/18 14:58 Tylenol - PO 12/30/18 14:39 975 mg ONCE ONE Administration Al Hydroxide/Mg Hydroxide 30 ml 12/30/18 15:08 12/30/18 15:15 Mylanta Oral Suspension - PO 12/30/18 15:09 30 ml ONCE ONE Administration Famotidine/Sodium Chloride 20 mg in 50 mls @ 100 mls/hr 12/30/18 15:07 15:14 Pepcid 20 Mg Premixed Ivpb - IVPB 12/30/18 15:36 Not Given ONCE ONE Lidocaine 1 patch 12/30/18 14:37 12/30/18 14:57 Lidoderm Patch - TP 12/30/18 14:38 1 patch ONCE ONE Administration Sodium Chloride 1,000 ml 12/30/18 15:06 12/30/18 15:14 Normal Saline - IV 12/30/18 15:07 Not Given ONCE ONE Medical Decision Making - Medical Decision Making 12/30/18 16:12 See HPI for details. Prior notes reviewed, including admissions, discharges and consultations. Vital signs reviewed, +hypertensive, but anxious DDx chest pain/dizziness/weakness: ACS, coronary vasospasm, NSTEMI, arrhythmia, unstable angina, PE, dissection, PUD, esophageal spasm, GERD, gastritis, costochondritis, pneumonia, pleurisy, pericarditis/myocarditis. dehydration, electrolyte/metabolic derangements. pancreatitis, hepatitis. Considered but clinically doubt based on HPI and PE: dissection or PE; no tachy or hypoxia. laboratory results and imaging reviewed, basic labs and lytes wnl, notable for LFTs/lipase_normal CXR_limited, but no acute chest pathology Cardiac panel_neg trop, reassuring, unlikely cardiac, with 3 weeks of sx, no active cp. EKG atrial fibrillation at 67 bpm, no interval abnormalities, narrow QRS, ST and T wave segments and morphology normal. Nonspecific T wave abnormalities - intermittent PVCs ED course -interventions: analgesia, lido patch for reproducible neck and upper back pain. also given GI cocktail for the burning abdominal pain, improving; also took zantac this AM. no n/v, no peritoneal findings. neuro intact no cp or sob, abdomen benign. stable thoracic aneurysm at 4cm compared to prior. doubt dissection or leak repeat VS improved. comfortable in bed, NAD Pt to be discharged in stable condition. Patient and family made aware of clinical impression, treatment recommendations and disposition plan, return precautions discussed (including but not limited to new or persistent/worsening symptoms, pain, fevers, or signs of infection, chest pain, respiratory distress , inability to tolerate oral intake, dehydration, syncope, or neurologic changes ). Follow up with PMD and/or specialists (cardiology/GI) as recommended, follow up information provided, take medications as instructed for duration of time. continue with supportive care, avoid triggers and precipitants. All questions answered to patient's satisfaction and expressed understanding and comfort with this. At the time of discharge, the patient is alert, clinically improved, tolerating po and verbalizes understanding of instructions, satisfied with the care received and felt comfortable with the plan. Patient does not suffer from an acute life-threatening medical condition at this time and is safe for outpatient follow-up. 12/30/18 16:44 *DC/Admit/Observation/Transfer Diagnosis at time of Disposition: Chest pain, Dizziness, Neck pain, Abdominal pain - Discharge Dispostion Disposition: HOME Condition at time of disposition: Stable Decision to Admit order: No - Referrals Referrals: Meri Fitzgerald MD [Primary Care Provider] - - Patient Instructions Printed Discharge Instructions: DI for Neck Pain, DI for Chest Pain, DI for Dizziness-Nonvertigo, DI for Abdominal Pain-Adult Additional Instructions: 1) Please follow-up with your primary care doctor in the next 1-2 days. Please call tomorrow for for any urgent issues. 2) You were given a copy of the tests performed today. Please bring the results with you and review them with your primary care doctor. Your laboratory / imaging results were normal, including your cardiac enzymes and chest x ray 3) If you have any worsening of symptoms or any other concerns please return to the ED immediately. Return if worsening symptoms including fevers, headache, vomiting, visual or hearing disturbances, abdominal pain, chest pain, shortness of breath, syncope, dehydration, inability to take things by mouth/vomiting, altered mental status, or worsening concerning symptoms. 4) Please continue taking your home medications as directed. you may take tylenol for your pain over the counter topical analgesic patches are available for your neck and muscle pain in the back. Stay well hydrated and rest adequately. Make an appointment. If you cannot follow-up with your primary care doctor please return to the ED - Post Discharge Activity
[2018-12-30 16:14] LABS: INR 1.63 (0.82-1.09); PROTHROMBIN TIME (PATIENT) 18.1 SEC (10.2-13.0)
[2018-12-30 16:18] LABS: ALBUMIN 4.1 g/dl (3.4-5.0); BILIRUBIN,TOTAL 1.5 mg/dl (0.2-1); CALCIUM 9.2 mg/dl (8.5-10); MAGNESIUM 2.2 mg/dL (1.8-2.4); POTASSIUM 4.3 mmol/L (3.5-5.1); TOT PROT 6.9 g/dl (6.4-8.2)
[2018-12-30 16:22] LABS: BASO % 0.6 % (0-2.0); EOS % 3.3 % (0-4.5); HEMATOCRIT 48.4 % (35.4-49); LYMPH % 25.2 % (8-40); MCH 32.1 pg (25.7-33.7); MCHC 33.2 g/dl (32.0-35.9); MEAN CELL VOLUME 96.7 fl (80-96); MONO % 7.8 % (3.8-10.2); NEUT % 63.1 % (42.8-82.8); PLATELET COUNT 179 K/MM3 (134-434); RBC 5.01 M/mm3 (4.00-5.60); RDW 12.6 % (11.9-15.9); WHITE BLOOD COUNT 8.4 K/mm3 (4.0-10.8)
[2018-12-30 16:54] VITALS: BP 134/91; PULSE 60
--- NOTE | 2018-12-31 08:28 | EKG ---
Test Reason : Blood Pressure : / mmHG Vent. Rate : 067 BPM Atrial Rate : 214 BPM P-R Int : 000 ms QRS Dur : 094 ms QT Int : 436 ms P-R-T Axes : 088 004 -13 degrees QTc Int : 460 ms ATRIAL FLUTTER WITH VARIABLE A-V BLOCK WITH PREMATURE VENTRICULAR OR ABERRANTLY CONDUCTED COMPLEXES NONSPECIFIC ST ABNORMALITY ABNORMAL ECG WHEN COMPARED WITH ECG OF 19-AUG-2018 15:30, ATRIAL FLUTTER HAS REPLACED SINUS RHYTHM Confirmed by SO TAYLOR MD ([id number]) on 12/31/2018 8:28:36 AM Referred By: DR BAE Confirmed By:SO TAYLOR MD
== END 2018-12-30 16:53 | disposition home or self-care (01) ==
LOC: FER 14:34
DX: R07.9 Chest pain, unspecified (principal); R42 Dizziness and giddiness; M54.2 Cervicalgia; R10.9 Unspecified abdominal pain; I10 Essential (primary) hypertension; E78.00 Pure hypercholesterolemia, unspecified; F41.9 Anxiety disorder, unspecified; N20.0 Calculus of kidney; I48.91 Unspecified atrial fibrillation
CPT/HCPCS: 36415; 71045-TC-FY; 80053; 83690; 83735; 84484; 85025; 85610; 93005; 99282-25

== ENCOUNTER 2019-01-30 11:31 | Emergency (ER) | payer OTHER, MEDICARE ==
[2019-01-30 11:42] VITALS: BP 138/68; PULSE 65; TEMP 98.1; BMI 29.0
--- NOTE | 2019-01-30 11:42 | PDOC ---
History of Present Illness - General Chief Complaint: Pain Stated Complaint: LEFT KNEE PAIN Time Seen by Provider: 01/30/19 11:40 History Source: Patient Exam Limitations: No Limitations - History of Present Illness Initial Comments: 01/30/19 12:21 The patient is a 73 year old male with a past medical history of afib (on eliquis), gout, kidney stones, anxiety, ascending aortic aneurysm (4 cm, last checked in 2013 and was stable), intermittent bradycardia, HLD, and HTN here today for evaluation of left knee pain and redness since yesterday.. Denies trauma or falls. No insect bites or outside precipitants/triggers. He has been icing and resting and taking tylenol with some symptom relief. 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 Denies fever, chills. denies Chest pain/SOB, Denies vomiting, diarrhea. + chronic abdominal pain with eating. Denies urinary symptoms. Denies weakness, paresthesias, leg swelling or skin changes Allergies: amoxicillin, allopurinol PCP: Meri Garrison 01/30/19 12:21 Past History - Past Medical History Allergies/Adverse Reactions: Allergies Allergy/AdvReac Type Severity Reaction Status Date / Time amoxicillin [Amoxicillin] Allergy Severe Difficulty Verified 01/30/19 11:32 Breathing allopurinol Allergy Intermediate Rash Verified 01/30/19 11:32 Home Medications: Ambulatory Orders Apixaban [Eliquis] 5 mg PO BID 12/17/15 Diltiazem Cd [Cardizem Cd -] 120 mg PO DAILY 05/24/18 Ranitidine [Zantac -] 1 tab PO BID 12/30/18 Acetaminophen [Tylenol Extra Strength] 500 mg PO PRN PRN 01/30/19 Prednisone [Prednisone 50 MG TABLETS] 50 mg PO DAILY #4 tablet 01/30/19 Cardiac Disorders: Yes (arrhythmia, A-fib, aortic anuerysm) COPD: No GI Disorders: Yes (h. pylori) HTN: Yes Hypercholesterolemia: Yes Kidney Stones: Yes Psychiatric Problems: Yes (anxiety) - Surgical History Abdominal Surgery: Yes (L inguinal hernia) Cardiac Surgery: Yes (CARDIAC ABLATION, FEB 2015) Orthopedic Surgery: (right knee sx) - Immunization History Immunization Up to Date: Yes - Suicide/Smoking/Psychosocial Hx Smoking Status: No Smoking History: Never smoked Have you smoked in the past 12 months: No Number of Cigarettes Smoked Daily: 0 Information on smoking cessation initiated: No Hx Alcohol Use: No Drug/Substance Use Hx: No Substance Use Type: None Hx Substance Use Treatment: No Review of Systems - Review of Systems Comments:: 01/30/19 12:21 Constitutional: no fevers or chills. CVS: no cp or syncope. no edema. Resp: no sob. No cough. Gastrointestinal: +chronic abdominal pain, No nausea or vomiting. Genitourinary: no urinary sx, hematuria. MUSCULOSKELETAL: +knee /joint pain. no swelling. no myalgias.. No neck or back pain. SKIN: no redness or skin changes, no discharge, no rash. No wounds. Hematologic: no easy bruising/bleeding. NEUROLOGIC: No weakness, numbness or tingling. Allergic/Immunologic: medication allergies All other systems reviewed and negative, or as documented in HPI. *Physical Exam - Vital Signs Last Vital Signs Temp Pulse Resp BP Pulse Ox 98.1 F 65 20 138/68 100 01/30/19 11:32 01/30/19 11:32 01/30/19 11:32 01/30/19 11:32 01/30/19 11:32 - Physical Exam Comments: 01/30/19 12:22 General: Well appearing, awake and alert, NAD. HEENT: NCAT, PERRL, EOMI, clear conjunctiva, moist mucus membranes, clear oropharynx, no oral lesions.. Neck: neck supple, FROM Resp: normal and even respirations, no respiratory distress CVS: 2+ peripheral pulses throughout, no peripheral edema Abdomen: soft, NTND, no peritoneal signs. Back: nontender, normal inspection and ROM MSK: no edema, GONZALES x4, ROM intact. No clubbing or cyanosis. normal bulk and tone. left anterior knee with warmth and area of erythema, no fluctuance, no crepitus. FROM in left knee joint, no limitations. no popliteal tenderness. no tenderness elicited in deep venous system. no palp joint effusion in left knee Neuro: alert, no focal neuro deficits. 5/5 plantar and dorsiflexion, SILT in all extrem L1-S1 distribution. Psych: calm and cooperative Skin: warm and well perfused, cap refill <2 sec, normal color, no rashes or wounds 01/30/19 12:26 Medical Decision Making - Medical Decision Making 01/30/19 12:24 hpi as documented VS reviewed, wnl Vital Signs Temp Pulse Resp BP Pulse Ox 98.1 F 65 20 138/68 100 01/30/19 11:32 01/30/19 11:32 01/30/19 11:32 01/30/19 11:32 01/30/19 11:32 DDX doubt septic arthritis, no infectious or systemic findings. inflammatory arthritis, OA, gouty arthritis, cellulitis does not appear infectious such as cellulitis or nec fasciitis doubt DVT, no popliteal or prox femoral vein tenderness or s/s to suggest VTE. more likely gout, with recent MTP flareup no prior knee joint gouty arthritis flare up. however has had similar presentation but not evaluated which he attributed to gout that had self resolved. no palp effusion able to ambulate analgesia with tylenol and prednisone for flare up allergy to allopurinol xray neg for fx/bony deformities. avoid triggers rest ice and elevate, analgesia and meds PCP followup, stable condition, discharge and return precautions as outlined. pt and family at bedside verbalize understanding of impression and plan. 01/30/19 12:34 01/30/19 12:35 *DC/Admit/Observation/Transfer Diagnosis at time of Disposition: Gout Qualifiers: Gout site: knee Gout etiology: unspecified cause Chronicity: acute Laterality: left Qualified Code(s): M10.9 - Gout, unspecified Knee pain, left Qualifiers: Chronicity: acute Qualified Code(s): M25.562 - Pain in left knee - Discharge Dispostion Disposition: HOME Condition at time of disposition: Improved Decision to Admit order: No - Prescriptions Prescriptions: Prednisone [Prednisone 50 MG TABLETS] 50 mg PO DAILY #4 tablet - Referrals Referrals: Meri Fitzgerald MD [Non Staff, Medical] - - Patient Instructions Printed Discharge Instructions: DI for Gout, DI for Knee Pain Additional Instructions: 1) Please follow-up with your primary care doctor in the next 1-2 days. Please call tomorrow for for any urgent issues. this could be arthritic pains versus gouty flareup. this is unlikely infection, so we will defer antibiotics for now, unless symptoms progress. 2) You were given a copy of the tests performed today. Please bring the results with you and review them with your primary care doctor. your imaging results were unremarkable. 3) If you have any worsening of symptoms or any other concerns please return to the ED immediately. Return if worsening symptoms including fevers, signs of infection, worsening redness/swelling, limitations in range of motion and falls/ inability to walk, headache, vomiting, visual or hearing disturbances, abdominal pain, chest pain, shortness of breath, syncope, dehydration, inability to take things by mouth/vomiting, altered mental status, or worsening concerning symptoms. 4) Please continue taking your home medications as directed. your medications on discharge include prednisone daily, begin taking tomorrow x 4 more days . side effects may include upset stomach, abdominal pain, vomiting, or diarrhea. do not drink alcohol with your medications. avoid foods that could trigger gout attack. continue to take tylenol as needed for pain every 6 hours keep your leg rested, elevated and ice as needed. watch for the area of redness , if it spreads and worsens, return sooner Stay well hydrated and rest adequately. Make an appointment. If you cannot follow-up with your primary care doctor please return to the ED - Post Discharge Activity
[2019-01-30] MEDS ORDERED: predniSONE 20 MG TABLET (UD) PO ONE (12:29)
[2019-01-30] MEDS ORDERED: predniSONE 20 MG TABLET (UD) ONE (13:11)
[2019-01-30] MEDS ORDERED: predniSONE 10 MG TABLET (UD) ONE (13:11)
== END 2019-01-30 13:19 | disposition home or self-care (01) ==
LOC: FER 11:31
DX: M10.9 Gout, unspecified (principal); M25.562 Pain in left knee; I48.91 Unspecified atrial fibrillation; Z79.01 Long term (current) use of anticoagulants; E78.5 Hyperlipidemia, unspecified; I10 Essential (primary) hypertension; F41.9 Anxiety disorder, unspecified
CPT/HCPCS: 73562-TC-LT-FY; 99282-25

== ENCOUNTER 2019-06-13 14:13 | Inpatient (IN) | payer OTHER, MEDICARE ==
--- NOTE | 2019-06-13 15:03 | PDOC ---
Documentation entered by Ella Dee SCRIBE, acting as scribe for Meenu Victoria DO. Meenu Victoria, DO: This documentation has been prepared by the Luiz barnard Mackenzie, SCRIBE, under my direction and personally reviewed by me in its entirety. I confirm that the documentation accurately reflects all work , treatment, procedures, and medical decision making performed by me. History of Present Illness - General Chief Complaint: Chest Pain Stated Complaint: CHEST PAIN/ HTN Time Seen by Provider: 06/13/19 14:17 History Source: Patient Exam Limitations: No Limitations - History of Present Illness Initial Comments: The patient is a 73 year old male, with a significant PMH of HTN, HLD, afib (on eliquis) ascending aortic aneurysm (4 cm, stable as of 2013) intermittent bradycardia, gout and kidney stones who presents to the emergency department with chest pain after having trouble monitoring his blood pressure for the past 3 days. Patient states he was admitted to the [facility] after being referred there from urgent care for high blood pressure. He was released from the [facility] that day when symptoms were alleviated after administering 0.1mg of clonidine (unsure exact name but likely clonidine). Patient states he comes in today because his blood pressure was 190/113 when he took it 1 hour prior to arrival and notes accompanying nonradiating chest pain. Additionally patient states having a sore throat for 2 weeks. 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 Patient also states he is scheduled to fly to [facility] tomorrow. The patient denies, headache and dizziness. Denies fever, chills, vomiting, diarrhea and constipation. Denies dysuria, frequency, urgency and hematuria. Allergies: amoxicillin, allopurinol 06/13/19 15:19 Past History - Past Medical History Allergies/Adverse Reactions: Allergies Allergy/AdvReac Type Severity Reaction Status Date / Time amoxicillin [Amoxicillin] Allergy Severe Difficulty Verified 06/13/19 14:15 Breathing allopurinol Allergy Intermediate Rash Verified 06/13/19 14:15 Home Medications: Ambulatory Orders Apixaban [Eliquis] 5 mg PO BID 12/17/15 Atenolol [Tenormin] 25 mg PO DAILY 06/13/19 Ranitidine HCl [Zantac 75] 150 mg PO DAILY 06/13/19 Cardiac Disorders: Yes (arrhythmia, A-fib, aortic anuerysm) COPD: No GI Disorders: Yes (h. pylori) HTN: Yes Hypercholesterolemia: Yes Kidney Stones: Yes Psychiatric Problems: Yes (anxiety) - Surgical History Abdominal Surgery: Yes (L inguinal hernia) Cardiac Surgery: Yes (CARDIAC ABLATION, FEB 2015) Orthopedic Surgery: (right knee sx) - Immunization History Immunization Up to Date: Yes - Psycho Social/Smoking Cessation Hx Smoking Status: No Smoking History: Never smoked Have you smoked in the past 12 months: No Number of Cigarettes Smoked Daily: 0 Hx Alcohol Use: No Drug/Substance Use Hx: No Substance Use Type: None Hx Substance Use Treatment: No Review of Systems - Review of Systems Able to Perform ROS?: Yes Comments:: GENERAL/CONSTITUTIONAL: No fever or chills. No weakness. HEAD, EYES, EARS, NOSE AND THROAT:(+)Sore throat. No change in vision. No ear pain or discharge. GASTROINTESTINAL: (+)Nausea. No vomiting, diarrhea or constipation. GENITOURINARY: No dysuria, frequency, or change in urination. CARDIOVASCULAR: (+)Chest pain. No shortness of breath. RESPIRATORY: No cough, wheezing, or hemoptysis. MUSCULOSKELETAL: No joint or muscle swelling or pain. No neck or back pain. SKIN: No rash NEUROLOGIC: No headache, vertigo, loss of consciousness, or change in strength/ sensation. ENDOCRINE: No increased thirst. No abnormal weight change. HEMATOLOGIC/LYMPHATIC: No anemia, easy bleeding, or history of blood clots. ALLERGIC/IMMUNOLOGIC: No hives or skin allergy. 06/13/19 15:19 *Physical Exam - Vital Signs Last Vital Signs Temp Pulse Resp BP Pulse Ox 97.7 F 72 18 155/88 100 06/13/19 14:14 06/13/19 14:36 06/13/19 14:36 06/13/19 14:36 06/13/19 14:36 - Physical Exam Constitutional: Awake, alert, oriented. No acute distress. Head: Normocephalic. Atraumatic Eyes: PERRL. EOMI. Conjunctivae are not pale. ENT: (+) Oral candidosis. Mucous membranes are moist and intact. Posterior pharynx without exudates or erythema. Uvula midline. Neck: Supple. Full ROM. No lymphadenopathy. Cardiovascular: Regular rate. Regular rhythm. S1, S2 regular. Distal pulses are 2+ and symmetric. Pulmonary/Chest: No evidence of respiratory distress. Clear to auscultation bilaterally No wheezing, rales or rhonchi. Abdominal: Soft and non-distended. There is no tenderness. No rebound, guarding or rigidity. No organomegaly. No palpable masses. Good bowel sounds. Back: No CVA tenderness. Musculoskeletal: No edema. No cyanosis. No clubbing. Full range of motion in all extremities. Nocalf tenderness. Radial/pedal pulses are intact and 2+ bilaterally Skin: Skin is warm and dry. No petechiae. No purpura. Neurological: Alert and oriented to person, place, and time. Cranial nerves II -XII are grossly intact. Normal speech. Strength is grossly symmetric. No sensory deficits. Psychiatric: Good eye contact. Normal interaction, affect and behavior. 06/13/19 15:20 Heart Score/ECG Review - History History: Moderately suspicious - Electrocardiogram EKG: Normal - Age Age: >/= 65 - Risk Factors Risk Factors Heart Score: Yes Hx Hypercholesterolemia, Yes Hx Hypertension Based on the list above the patient has:: 1-2 risk factors - Troponin Troponin: </= normal limit - Score Heart Score - Total: 4 - ECG Intrepretation Comment:: 06/13/19 14:59 sinus at 70 with 1st degree av block, pvc, nl axis, incomplete rbbb, no acute st changes, abnl ekg, 1st degree av block ED Treatment Course - LABORATORY CBC & Chemistry Diagram: 06/13/19 14:30 06/13/19 14:30 - RADIOLOGY Radiology Studies Ordered: Category Date Time Status CHEST PA & LAT [RAD] Stat Radiology 06/13/19 14:44 Ordered Medical Decision Making - Medical Decision Making 06/13/19 15:00 a/p: 73yo male with hx of htn, hld, afib on eliquis, thoracic aneurysm with elevated bp earlier today and chest pressure -no radiation of the pain -pt states abd felt "funny" -no assoc n/v/d -pt states his abd feels funny when bp elevated -was seen at the [facility] and given an extra tab of meds - unsure name -pt states doubling up his atenolol since -took an extra dose today and xanax for bp 190/113 earlier -bp now 155/88 -pt currently asymptomatic - all symptoms resolved -also c/o sob x 3 weeks, sore throat x 3 weeks -cards in [place] - dr. olivo -[facility] and at the [facility] -pt ambulatory with a steady gait in the ER -pt denies abd pain or cp at this time -will send labs, ekg, cxr -will repeat trop -will monitor and reassess 06/13/19 15:18 cxr without acute findings no elevated wbc hgb stable 06/13/19 15:29 trop neg will repeat at 530p 06/13/19 16:13 ua neg labs reviewed pt updated on labs and imaging pt willing to stay for repeat trop 06/13/19 17:03 pt now willing to stay overnight will give asa microblog sent to [facility] for obs admission for cp 06/13/19 17:06 pt with oral candidiasis - nystatin ordered 06/13/19 18:31 2nd trop neg Discharge - Discharge Information Problems reviewed: Yes Clinical Impression/Diagnosis: Chest pain, Elevated blood pressure reading Condition: Stable - Admission Yes - Follow up/Referral Referrals: Meri Fitzgerald MD [Primary Care Provider] - - Patient Discharge Instructions - Post Discharge Activity
[2019-06-13 15:07] LABS: BASO % 0.7 % (0-2.0); EOS % 0.6 % (0-4.5); HEMATOCRIT 47.4 % (35.4-49); HEMOGLOBIN 15.8 GM/dl (11.7-16.9); LYMPH % 20.9 % (8-40); MCH 32.4 pg (25.7-33.7); MCHC 33.3 g/dl (32.0-35.9); MEAN CELL VOLUME 97.4 fl (80-96); MEAN PLT VOLUME 8.3 fl (7.5-11.1); MONO % 9.2 % (3.8-10.2); NEUT % 68.6 % (42.8-82.8); PLATELET COUNT 209 K/MM3 (134-434); RBC 4.86 M/mm3 (4.00-5.60); RDW 13.2 % (11.9-15.9)
[2019-06-13 15:12] LABS: INR 1.54 (0.82-1.09); PROTHROMBIN TIME (PATIENT) 17.1 SEC (10.2-13.0)
[2019-06-13 15:16] LABS: ALBUMIN 3.9 g/dl (3.4-5.0); BILIRUBIN,TOTAL 1.2 mg/dl (0.2-1); CALCIUM 8.5 mg/dl (8.5-10); POTASSIUM 3.8 mmol/L (3.5-5.1); TOT PROT 6.1 g/dl (6.4-8.2)
[2019-06-13] MEDS ORDERED: NYSTATIN 500,000 UNITS/5 ML SUSPENSION PO ONE (17:05)
[2019-06-13] MEDS ORDERED: ASPIRIN 81 MG CHEWABLE TABLETS PO ONE ×2 (17:11→17:27)
[2019-06-13] MEDS ORDERED: ASPIRIN 81 MG CHEWABLE TABLETS ONE (17:19)
--- NOTE | 2019-06-13 20:01 | PDOC ---
*Physical Exam - Vital Signs Last Vital Signs Temp Pulse Resp BP Pulse Ox 97.7 F 59 L 18 115/64 99 06/13/19 14:14 06/13/19 19:42 06/13/19 14:36 06/13/19 19:42 06/13/19 17:43 ED Treatment Course - LABORATORY CBC & Chemistry Diagram: 06/13/19 14:30 06/13/19 14:30 - ADDITIONAL ORDERS Additional order review: Laboratory Results 06/13/19 06/13/19 06/13/19 17:53 17:53 15:00 PT with INR INR PTT (Actin FS) Sodium Potassium Chloride Carbon Dioxide Anion Gap BUN Creatinine Est GFR (CKD-EPI)AfAm Est GFR (CKD-EPI)NonAf Random Glucose Calcium Magnesium Total Bilirubin AST ALT Alkaline Phosphatase Creatine Kinase 44 Troponin I < 0.03 B-Natriuretic Peptide Total Protein Albumin Urine Color Yellow Urine Appearance Clear Urine pH 5.5 Urine Protein Negative Urine Glucose (UA) Negative Urine Ketones Negative Urine Blood Negative Urine Nitrite Negative Urine Bilirubin Negative Urine Urobilinogen 0.2 Ur Leukocyte Esterase Negative 06/13/19 06/13/19 06/13/19 14:30 14:30 14:30 PT with INR 17.1 H INR 1.54 H PTT (Actin FS) Sodium 135 L Potassium 3.8 Chloride 103 Carbon Dioxide 27 Anion Gap 5 L BUN 19.0 H Creatinine 1.0 Est GFR (CKD-EPI)AfAm 86.76 Est GFR (CKD-EPI)NonAf 74.86 Random Glucose 104 Calcium 8.5 Magnesium 2.0 Total Bilirubin 1.2 H AST 19 ALT 27 Alkaline Phosphatase 49 Creatine Kinase 48 Troponin I B-Natriuretic Peptide 1259.4 H Total Protein 6.1 L Albumin 3.9 Urine Color Urine Appearance Urine pH Urine Protein Urine Glucose (UA) Urine Ketones Urine Blood Urine Nitrite Urine Bilirubin Urine Urobilinogen Ur Leukocyte Esterase 06/13/19 06/13/19 14:30 14:30 PT with INR INR PTT (Actin FS) 34.9 Sodium Potassium Chloride Carbon Dioxide Anion Gap BUN Creatinine Est GFR (CKD-EPI)AfAm Est GFR (CKD-EPI)NonAf Random Glucose Calcium Magnesium Total Bilirubin AST ALT Alkaline Phosphatase Creatine Kinase Troponin I < 0.03 B-Natriuretic Peptide Total Protein Albumin Urine Color Urine Appearance Urine pH Urine Protein Urine Glucose (UA) Urine Ketones Urine Blood Urine Nitrite Urine Bilirubin Urine Urobilinogen Ur Leukocyte Esterase 06/13/19 14:30 RBC 4.86 MCV 97.4 H MCHC 33.3 RDW 13.2 MPV 8.3 Neutrophils % 68.6 Lymphocytes % 20.9 Monocytes % 9.2 Eosinophils % 0.6 D Basophils % 0.7 - Medications Given in the ED: ED Medications Discontinued Medications Generic Name Dose Route Start Last Admin Trade Name Freq PRN Reason Stop Dose Admin Aspirin 324 mg 06/13/19 17:11 06/13/19 17:33 Asa - PO 06/13/19 17:12 Not Given ONCE ONE Aspirin 81 mg 06/13/19 17:27 06/13/19 17:33 Asa - PO 06/13/19 17:28 81 mg ONCE ONE Administration Nystatin 500,000 units 06/13/19 17:05 06/13/19 17:41 Nystatin Oral Suspension - PO 06/13/19 17:06 500,000 units ONCE ONE Administration Medical Decision Making - Medical Decision Making 06/13/19 19:[address] Murphy who will admit patient, observation status. Discharge - Discharge Information Problems reviewed: Yes Clinical Impression/Diagnosis: Chest pain, Elevated blood pressure reading Condition: Stable - Follow up/Referral - Patient Discharge Instructions - Post Discharge Activity
[2019-06-13] MEDS: APIXABAN 5 MG TABLET PO SCH (22:05)
[2019-06-13 22:44] VITALS: BMI 29.2
[2019-06-14 07:31] LABS: BASO % 0.7 % (0-2.0); HEMOGLOBIN 15.8 GM/dL (11.7-16.9); LYMPH % 27.6 % (8-40); MCH 32.7 pg (25.7-33.7); MCHC 34.4 g/dl (32.0-35.9); MEAN PLT VOLUME 8.6 fl (7.5-11.1); MONO % 10.1 % (3.8-10.2); NEUT % 60.6 % (42.8-82.8); PLATELET COUNT 192 K/MM3 (134-434); RBC 4.84 M/mm3 (4.00-5.60); RDW 13.8 % (11.9-15.9); WHITE BLOOD COUNT 9.1 K/mm3 (4.0-10.0)
[2019-06-14 07:59] VITALS: TEMP 97.9
--- NOTE | 2019-06-14 08:50 | HP ---
CHIEF COMPLAINT: Chest Pain PCP: HISTORY OF PRESENT ILLNESS: The patient is a 73 year old male, with a significant PMH of HTN, HLD, afib (on eliquis) ascending aortic aneurysm (4 cm, stable as of 2013) intermittent bradycardia, gout and kidney stones who presents to the emergency department with chest pain after having trouble monitoring his blood pressure for the past 3 days. Patient states he was admitted to the [facility] emergency room after being referred there from urgent care for high blood pressure. He was released from the [facility] that day when symptoms were alleviated after administering 0.1mg of clonidine (unsure exact name but likely clonidine). Patient states he comes in today because his blood pressure was 190/113 when he took it 1 hour prior to arrival and notes accompanying nonradiating chest pain. Additionally patient states having a sore throat for 2 weeks. 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 Patient also states he is scheduled to fly to [facility] tomorrow. The patient denies, headache and dizziness.Denies fever, chills, vomiting, diarrhea and constipation. Denies dysuria, frequency, urgency and hematuria. ER course was notable for: (1) Neg Troponins x 2 (2) ASA 324mg, 81mg (3) Neg Chest Xray (4) UA Recent Travel: PAST MEDICAL HISTORY: HTN HLD AFIb AAA Tinnitus Hpylori GERD Depression Anxiety Left Eye detached Retina PAST SURGICAL HISTORY: Left Knee Scope Ablation 2014, 2015 Social History: Smoking: Denies Alcohol: Denies Drugs: Denies Allergies amoxicillin [Amoxicillin] Allergy (Severe, Verified 06/13/19 14:15) Difficulty Breathing allopurinol Allergy (Intermediate, Verified 06/13/19 14:15) Rash HOME MEDICATIONS: Home Medications Medication Instructions Recorded Apixaban [Eliquis] 5 mg PO BID 12/17/15 Atenolol [Tenormin] 25 mg PO DAILY 06/13/19 Ranitidine HCl [Zantac 75] 150 mg PO DAILY 06/13/19 REVIEW OF SYSTEMS CONSTITUTIONAL: Absent: fever, chills, diaphoresis, generalized weakness, malaise, loss of appetite, weight change HEENT: Sore throat Absent: rhinorrhea, nasal congestion, throat swelling, difficulty swallowing, mouth swelling, ear pain, eye pain, visual changes CARDIOVASCULAR: Absent: chest pain, syncope, palpitations, irregular heart rate, lightheadedness , peripheral edema RESPIRATORY: Absent: cough, shortness of breath, dyspnea with exertion, orthopnea, wheezing, stridor, hemoptysis GASTROINTESTINAL: Absent:abdominal pain , abdominal distension, nausea, vomiting, diarrhea, constipation, melena, hematochezia GENITOURINARY: Absent: dysuria, frequency, urgency, hesitancy, hematuria, flank pain, genital pain MUSCULOSKELETAL: Absent: myalgia, arthralgia, joint swelling, back pain, neck pain SKIN: Absent: rash, itching, pallor HEMATOLOGIC/IMMUNOLOGIC: Absent: easy bleeding, easy bruising, lymphadenopathy, frequent infections ENDOCRINE: Absent: unexplained weight gain, unexplained weight loss, heat intolerance, cold intolerance NEUROLOGIC: Absent: headache, focal weakness or paresthesias, dizziness, unsteady gait, seizure, mental status changes, bladder or bowel incontinence PSYCHIATRIC: anxiety depression Absent: suicidal or homicidal ideation, hallucinations. PHYSICAL EXAMINATION Vital Signs - 24 hr 06/13/19 06/13/19 06/13/19 14:14 14:36 17:43 Temperature 97.7 F Pulse Rate 72 Pulse Rate [ 72 72 Right] Respiratory 15 18 Rate Blood Pressure 197/104 H Blood Pressure 155/88 142/89 [Left Arm] O2 Sat by Pulse 99 100 99 Oximetry (%) 06/13/19 06/13/19 06/13/19 19:42 20:30 20:31 Temperature 97.3 F L 98.3 F Pulse Rate 61 Pulse Rate [ 59 L 55 L Right] Respiratory 18 17 Rate Blood Pressure 149/82 Blood Pressure 115/64 122/67 [Left Arm] O2 Sat by Pulse 96 97 Oximetry (%) 06/13/19 06/14/19 22:35 06:00 Temperature 97.6 F 97.9 F Pulse Rate 70 60 Pulse Rate [ Right] Respiratory 16 18 Rate Blood Pressure 165/98 150/72 Blood Pressure [Left Arm] O2 Sat by Pulse 98 Oximetry (%) Constitutional: Awake, alert, oriented. No acute distress. Head: Normocephalic. Atraumatic Eyes: PERRL. EOMI. Conjunctivae are not pale. ENT: (+) Oral candidosis. Mucous membranes are moist and intact. Posterior pharynx without exudates or erythema. Uvula midline. Neck: Supple. Full ROM. No lymphadenopathy. Cardiovascular: Regular rate. Regular rhythm. S1, S2 regular. Distal pulses are 2+ and symmetric. Pulmonary/Chest: No evidence of respiratory distress. Clear to auscultation bilaterally No wheezing, rales or rhonchi. Abdominal: Soft and non-distended. There is no tenderness. No rebound, guarding or rigidity. No organomegaly. No palpable masses. Good bowel sounds. Back: No CVA tenderness. Musculoskeletal: No edema. No cyanosis. No clubbing. Full range of motion in all extremities. Nocalf tenderness. Radial/pedal pulses are intact and 2+ bilaterally Skin: Skin is warm and dry. No petechiae. No purpura. Neurological: Alert and oriented to person, place, and time. Cranial nerves II -XII are grossly intact. Normal speech. Strength is grossly symmetric. No sensory deficits. Psychiatric: Good eye contact. Normal interaction, affect and behavior. Laboratory Results - last 24 hr 06/13/19 06/13/19 06/13/19 14:30 14:30 14:30 WBC RBC Hgb Hct MCV MCH MCHC RDW Plt Count MPV Absolute Neuts (auto) Neutrophils % Lymphocytes % Monocytes % Eosinophils % Basophils % Nucleated RBC % PT with INR INR PTT (Actin FS) 34.9 Sodium 135 L Potassium 3.8 Chloride 103 Carbon Dioxide 27 Anion Gap 5 L BUN 19.0 H Creatinine 1.0 Est GFR (CKD-EPI)AfAm 86.76 Est GFR (CKD-EPI)NonAf 74.86 Random Glucose 104 Calcium 8.5 Magnesium 2.0 Total Bilirubin 1.2 H AST 19 ALT 27 Alkaline Phosphatase 49 Creatine Kinase 48 Troponin I < 0.03 B-Natriuretic Peptide Total Protein 6.1 L Albumin 3.9 Urine Color Urine Appearance Urine pH Urine Protein Urine Glucose (UA) Urine Ketones Urine Blood Urine Nitrite Urine Bilirubin Urine Urobilinogen Ur Leukocyte Esterase 06/13/19 06/13/19 06/13/19 14:30 14:30 14:30 WBC 9.0 RBC 4.86 Hgb 15.8 Hct 47.4 MCV 97.4 H MCH 32.4 MCHC 33.3 RDW 13.2 Plt Count 209 MPV 8.3 Absolute Neuts (auto) 6.1 Neutrophils % 68.6 Lymphocytes % 20.9 Monocytes % 9.2 Eosinophils % 0.6 D Basophils % 0.7 Nucleated RBC % PT with INR 17.1 H INR 1.54 H PTT (Actin FS) Sodium Potassium Chloride Carbon Dioxide Anion Gap BUN Creatinine Est GFR (CKD-EPI)AfAm Est GFR (CKD-EPI)NonAf Random Glucose Calcium Magnesium Total Bilirubin AST ALT Alkaline Phosphatase Creatine Kinase Troponin I B-Natriuretic Peptide 1259.4 H Total Protein Albumin Urine Color Urine Appearance Urine pH Urine Protein Urine Glucose (UA) Urine Ketones Urine Blood Urine Nitrite Urine Bilirubin Urine Urobilinogen Ur Leukocyte Esterase 06/13/19 06/13/19 06/13/19 15:00 17:53 17:53 WBC RBC Hgb Hct MCV MCH MCHC RDW Plt Count MPV Absolute Neuts (auto) Neutrophils % Lymphocytes % Monocytes % Eosinophils % Basophils % Nucleated RBC % PT with INR INR PTT (Actin FS) Sodium Potassium Chloride Carbon Dioxide Anion Gap BUN Creatinine Est GFR (CKD-EPI)AfAm Est GFR (CKD-EPI)NonAf Random Glucose Calcium Magnesium Total Bilirubin AST ALT Alkaline Phosphatase Creatine Kinase 44 Troponin I < 0.03 B-Natriuretic Peptide Total Protein Albumin Urine Color Yellow Urine Appearance Clear Urine pH 5.5 Urine Protein Negative Urine Glucose (UA) Negative Urine Ketones Negative Urine Blood Negative Urine Nitrite Negative Urine Bilirubin Negative Urine Urobilinogen 0.2 Ur Leukocyte Esterase Negative 06/14/19 06:00 WBC 9.1 RBC 4.84 Hgb 15.8 Hct 46.0 MCV 95.0 MCH 32.7 MCHC 34.4 RDW 13.8 Plt Count 192 D MPV 8.6 Absolute Neuts (auto) 5.5 Neutrophils % 60.6 D Lymphocytes % 27.6 D Monocytes % 10.1 D Eosinophils % 1.0 D Basophils % 0.7 D Nucleated RBC % 0 PT with INR INR PTT (Actin FS) Sodium Potassium Chloride Carbon Dioxide Anion Gap BUN Creatinine Est GFR (CKD-EPI)AfAm Est GFR (CKD-EPI)NonAf Random Glucose Calcium Magnesium Total Bilirubin AST ALT Alkaline Phosphatase Creatine Kinase Troponin I B-Natriuretic Peptide Total Protein Albumin Urine Color Urine Appearance Urine pH Urine Protein Urine Glucose (UA) Urine Ketones Urine Blood Urine Nitrite Urine Bilirubin Urine Urobilinogen Ur Leukocyte Esterase ASSESSMENT/PLAN: The patient is a 73 year old male, with a significant PMH of HTN, HLD, afib (on eliquis) ascending aortic aneurysm (4 cm, stable as of 2013) intermittent bradycardia, gout and kidney stones who presents to the emergency department with chest pain after having trouble monitoring his blood pressure for the past 3 days and hypertensive urgency. Chest Pain- Resolved CXR- No acute pathology EKG-Atrial Flutter with Variable Block Serial Troponins-Negative x3 Cardiology consulted Hypertensive Urgency -Resolved HTN -Continue Atenolol 25mg Daily. Pt states he starting doubling his dosage on his own Afib -Cont on Elliqis 5mg PO BID GERD -Cont Ranitidine 150mg PO Daily FEN -PO Intake adequate -Replenish PRN -Low Sodium Diet DVT Prophylaxis -SCDs -Early ambulation Dispo -Discharge planning -Full Code Family Medical History Family Hx Coronary Artery Disease: Father, Sister Family Hx Diabetes: Mother Visit type - Emergency Visit Emergency Visit: Yes ED Registration Date: 06/13/19 Care time: The patient presented to the Emergency Department on the above date and was hospitalized for further evaluation of their emergent condition. - New Patient This patient is new to me today: Yes Date on this admission: 06/18/19 - Critical Care Critical Care patient: No
[2019-06-14 09:22] LABS: ANION GAP 6 MMOL/L (8-16); BLOOD UREA NITROGEN 15.6 mg/dL (7-18); CHLORIDE 108 mmol/L (98-107); CHOLESTEROL 171 mg/dL (50-200); CO2 30 mmol/L (21-32); GLUCOSE,RANDOM 89 mg/dL (74-106); HDL CHOLESTEROL 43 mg/dL (40-60); LDL CHOLESTEROL (ONLY SJRH) 114 mg/dL (5-100); MAGNESIUM 2.5 mg/dL (1.8-2.4); SODIUM 144 mmol/L (136-145); TRIGLYCERIDES 80 mg/dL (0-150)
[2019-06-14] MEDS ORDERED: FAMOTIDINE 20 MG TABLET PO SCH (10:00)
[2019-06-14] MEDS ORDERED: ATENOLOL 25 MG TABLET (FP) PO SCH (10:00)
[2019-06-14] MEDS: APIXABAN 5 MG TABLET PO SCH (10:15)
--- NOTE | 2019-06-14 14:58 | CON.CARD ---
Consult Consult Specialty:: Cardiology Referred by:: Hospitalist Medicine Reason for Consultation:: Chest pain, HTN urgency - History of Present Illness Chief Complaint: Chest pain, HTN urgency History of Present Illness: The patient is a 73 year old male, with a significant PMH of HTN, HLD, afib (on eliquis) ascending aortic aneurysm (4 cm, stable as of 2013) intermittent bradycardia, gout and kidney stones who presents to the emergency department with atypical, non-exertional chest pain after having trouble monitoring his blood pressure for the past 3 days. Patient states he was admitted to the [facility] room after being referred there from urgent care for high blood pressure. He was released from the [facility] that day when symptoms were alleviated after administering 0.1mg of clonidine (unsure exact name but likely clonidine). Patient presented because his blood pressure was 190/113 when he took it 1 hour prior to arrival and notes accompanying non-radiating, non- exertional chest pain. Additionally patient states having a sore throat for 2 weeks. 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 Patient notes his office machine technician Dr. Barger (NOS) recently changed his blood pressure medication a lower 25mg dosage and for the past 3 days he has been doubling up on the medication. Patient also states he is scheduled to fly to [facility] today. He denies associated dyspnea, near or true syncope, palpitations, orthopnea, PND or LE edema. He reports cough in past with lisinopril. Had stress testing 09/2018 reportedly negative for ischemia. Allergies: amoxicillin, allopurinol Dr. bisi avila is his PMD. Dr. Barger is his office machine technician. - Past Medical History Cardio/Vascular: Yes: Aneurysm, HTN, Other (thoracic Aneurysm) - Alcohol/Substance Use Hx Alcohol Use: No - Smoking History Smoking history: Never smoked Have you smoked in the past 12 months: No Aproximately how many cigarettes per day: 0 Home Medications - Allergies Allergies/Adverse Reactions: Allergies Allergy/AdvReac Type Severity Reaction Status Date / Time amoxicillin [Amoxicillin] Allergy Severe Difficulty Verified 06/13/19 14:15 Breathing allopurinol Allergy Intermediate Rash Verified 06/13/19 14:15 - Home Medications Home Medications: Ambulatory Orders Apixaban [Eliquis] 5 mg PO BID 12/17/15 Atenolol [Tenormin] 25 mg PO DAILY 06/13/19 Ranitidine HCl [Zantac 75] 150 mg PO DAILY 06/13/19 Review of Systems - Review of Systems Cardiovascular: reports: Chest Pain Respiratory: reports: Cough Vital Signs: Vital Signs Temperature 97.9 F 06/14/19 06:00 Pulse Rate 60 06/14/19 06:00 Respiratory Rate 18 06/14/19 06:00 Blood Pressure 150/72 06/14/19 06:00 O2 Sat by Pulse Oximetry (%) 98 06/14/19 08:52 Constitutional: Yes: No Distress, Calm Neck: Yes: Supple Respiratory: Yes: Regular, CTA Bilaterally Gastrointestinal: Yes: Normal Bowel Sounds, Soft Cardiovascular: Yes: Regular Rate and Rhythm JVD: No Carotid Bruit: No Heart Sounds: Yes: S1, S2 Edema: No - Other Data Labs, Other Data: CBC, BMP 06/14/19 06:00 06/14/19 06:00 INR, PTT INR 1.54 (0.82-1.09) H 06/13/19 14:30 Troponin, BNP 06/13/19 06/13/19 06/13/19 14:30 14:30 17:53 Troponin I < 0.03 < 0.03 B-Natriuretic Peptide 1259.4 H 06/14/19 06:00 Troponin I < 0.02 B-Natriuretic Peptide Troponin, BNP 06/13/19 06/13/19 06/13/19 14:30 14:30 17:53 Troponin I < 0.03 < 0.03 B-Natriuretic Peptide 1259.4 H 06/14/19 06:00 Troponin I < 0.02 B-Natriuretic Peptide Aflutter @ 73 Tele: Aflutter rate-controlled with max 2.2 sec pauses Ejection Fraction %: LVEF > or = 40 % Imaging - Results Chest X-ray: Report Reviewed (NAD) Problem List - Problems (1) Chest pain Code(s): R07.9 - CHEST PAIN, UNSPECIFIED Qualifiers: Chest pain type: precordial pain Qualified Code(s): R07.2 - Precordial pain (2) Chest discomfort Code(s): R07.89 - OTHER CHEST PAIN (3) Essential hypertension Code(s): I10 - ESSENTIAL (PRIMARY) HYPERTENSION (4) Gout Code(s): M10.9 - GOUT, UNSPECIFIED Qualifiers: Gout site: knee Gout etiology: unspecified cause Chronicity: acute Laterality: left Qualified Code(s): M10.9 - Gout, unspecified (5) Thoracic ascending aortic aneurysm Code(s): I71.2 - THORACIC AORTIC ANEURYSM, WITHOUT RUPTURE (6) Atrial flutter Code(s): I48.92 - UNSPECIFIED ATRIAL FLUTTER Qualifiers: Atrial flutter type: typical Qualified Code(s): I48.3 - Typical atrial flutter (7) Chronic anticoagulation Code(s): Z79.01 - 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 Atypical chest pain r/o WI 2. Hypertensive urgency since resolved 3. Atrial flutter rate-controlled [id number] score of 2 4. CAD post PCI angina pectoris, stable 5. Thoracic aortic aneurysm 6. History of palpitations 7. GUNJAN-I associated cough PLAN: 1. Ruled out for [place] 2. Continue Eliquis 5 bid, Atenolol 50 qd, losartan 25 qd with uptitration has hemodynamics tolerate 3. Can be D/C home and F/U with his office machine technician in [facility] at [facility] 4. Thank you for consultative opportunity
[2019-06-14 15:10] VITALS: BP 119/67; PULSE 73
--- NOTE | 2019-06-14 16:14 | DS ---
Physical Exam: SUBJECTIVE: Patient seen and examined OBJECTIVE: Vital Signs Period Temp Pulse Resp BP Sys/Tuttle Pulse Ox Last 24 Hr 97.3 F-98.3 F 55-73 16-18 115-165/64-98 96-99 PHYSICAL EXAM GENERAL: The patient is awake, alert, and fully oriented, in no acute distress. HEAD: Normal with no signs of trauma. EYES: PERRL, extraocular movements intact, sclera anicteric, conjunctiva clear. ENT: Ears normal, nares patent, oropharynx donnie present, without exudates, moist mucous membranes. NECK: Trachea midline, full range of motion, supple. LUNGS: Breath sounds equal, clear to auscultation bilaterally, no wheezes, no crackles, no accessory muscle use. HEART: Regular rate and rhythm, S1, S2. ABDOMEN: Soft, nontender, nondistended, normoactive bowel sounds, no guarding, no rebound, no hepatosplenomegaly, no masses. EXTREMITIES: 2+ pulses, warm, well-perfused, no edema. NEUROLOGICAL: Cranial nerves II through XII grossly intact. Normal speech, gait not observed. PSYCH: Normal mood, normal affect. SKIN: Warm, dry, normal turgor, no rashes or lesions noted. LABS Laboratory Results - last 24 hr 06/13/19 06/13/19 06/13/19 14:30 17:53 17:53 WBC RBC Hgb Hct MCV MCH MCHC RDW Plt Count MPV Absolute Neuts (auto) Neutrophils % Lymphocytes % Monocytes % Eosinophils % Basophils % Nucleated RBC % Sodium Potassium Chloride Carbon Dioxide Anion Gap BUN Creatinine Est GFR (CKD-EPI)AfAm Est GFR (CKD-EPI)NonAf Random Glucose Calcium Magnesium Creatine Kinase 44 Troponin I < 0.03 B-Natriuretic Peptide 1259.4 H Triglycerides Cholesterol Total LDL Cholesterol HDL Cholesterol 06/14/19 06/14/19 06:00 06:00 WBC 9.1 RBC 4.84 Hgb 15.8 Hct 46.0 MCV 95.0 MCH 32.7 MCHC 34.4 RDW 13.8 Plt Count 192 D MPV 8.6 Absolute Neuts (auto) 5.5 Neutrophils % 60.6 D Lymphocytes % 27.6 D Monocytes % 10.1 D Eosinophils % 1.0 D Basophils % 0.7 D Nucleated RBC % 0 Sodium 144 Potassium 4.0 Chloride 108 H Carbon Dioxide 30 Anion Gap 6 L BUN 15.6 Creatinine 1.0 Est GFR (CKD-EPI)AfAm 86.76 Est GFR (CKD-EPI)NonAf 74.86 Random Glucose 89 Calcium 9.0 Magnesium 2.5 H Creatine Kinase Troponin I < 0.02 B-Natriuretic Peptide Triglycerides 80 Cholesterol 171 Total LDL Cholesterol 114 H HDL Cholesterol 43 HOSPITAL COURSE: ASSESSMENT/PLAN: The patient is a 73 year old male, with a significant PMH of HTN, HLD, afib (on eliquis) ascending aortic aneurysm (4 cm, stable as of 2013) intermittent bradycardia, gout and kidney stones who presents to the emergency department with chest pain after having trouble monitoring his blood pressure for the past 3 days and hypertensive urgency. Chest Pain- Resolved CXR- No acute pathology EKG-Atrial Flutter with Variable Block Serial Troponins-Negative x3 Cardiology consulted and Seen by Dr. Howard Hypertensive Urgency -Resolved HTN -Cardiology Changed Atenolol from 25mg to 50mg Daily. Pt states he starting doubling his dosage on his own -Added Losartan 25mg Daily Afib -Cont on Elliqis 5mg PO BID GERD -Cont Ranitidine 150mg PO Daily FEN -PO Intake adequate -Replenish PRN -Low Sodium Diet DVT Prophylaxis -SCDs -Early ambulation Dispo -Discharge planning -Full Code Date of Admission:06/13/19 Date of Discharge: 06/14/19 Minutes to complete discharge: 35 Discharge Summary Problems reviewed: Yes Reason For Visit: CHEST PAIN, Hypertensive Urgency Current Active Problems Chest pain (Acute) Elevated blood pressure reading (Acute) Condition: Stable - Instructions Disposition: HOME - Home Medications Comprehensive Discharge Medication List: Ambulatory Orders Apixaban [Eliquis] 5 mg PO BID 12/17/15 Atenolol [Tenormin] 25 mg PO DAILY 06/13/19 Ranitidine HCl [Zantac 75] 150 mg PO DAILY 06/13/19 This patient is new to me today: Yes Date on this admission: 06/18/19 Emergency Visit: Yes ED Registration Date: 06/13/19 Care time: The patient presented to the Emergency Department on the above date and was hospitalized for further evaluation of their emergent condition. Critical Care patient: No - Discharge Referral Referred to [facility] Med P.C.: No
--- NOTE | 2019-06-14 18:41 | EKG ---
Test Reason : Blood Pressure : / mmHG Vent. Rate : 073 BPM Atrial Rate : 220 BPM P-R Int : 000 ms QRS Dur : 098 ms QT Int : 444 ms P-R-T Axes : 059 018 006 degrees QTc Int : 489 ms ATRIAL FLUTTER WITH VARIABLE AV CONDUCTION NONSPECIFIC ST ABNORMALITY PROLONGED QT ABNORMAL ECG WHEN COMPARED WITH ECG OF 13-JUN-2019 14:28, COMPARED TO EKG NO SIGNIFICANT CHANGE IS FOUND Confirmed by ROXANA TOLEDO MD ([id number]) on 06/14/2019 6:41:14 PM Referred By: YULISA SINGER Confirmed By:ROXAAN TOLEDO MD
--- NOTE | 2019-06-14 18:43 | EKG ---
Test Reason : Blood Pressure : / mmHG Vent. Rate : 070 BPM Atrial Rate : 070 BPM P-R Int : 216 ms QRS Dur : 116 ms QT Int : 440 ms P-R-T Axes : 113 002 015 degrees QTc Int : 475 ms ATRIAL FLUTTER WITH PVC'S NONSPECIFIC ST ABNORMALITY ABNORMAL ECG WHEN COMPARED WITH ECG OF 30-DEC-2018 15:36, COMPARED TO EKG NO SIGNIFICANT CHANGE IS FOUND Confirmed by ROXANA TOLEDO MD ([id number]) on 06/14/2019 6:42:40 PM Referred By: DANIAL COLMENARES Confirmed By:ROXANA TOLEDO MD
== END 2019-06-14 17:30 | disposition home or self-care (01) | DRG 305 ==
LOC: FER 14:13 → FM/S 17:03
PROVIDERS: ADMIT Internal Medicine; ATTEND Nurse Practitioner Acute Care
DX: I16.0 Hypertensive urgency (principal); I48.92 Unspecified atrial flutter; B37.0 Candidal stomatitis; R07.89 Other chest pain; I10 Essential (primary) hypertension; E78.5 Hyperlipidemia, unspecified; I48.91 Unspecified atrial fibrillation; I71.2 Thoracic aortic aneurysm, without rupture; M10.9 Gout, unspecified; I25.119 Atherosclerotic heart disease of native coronary artery with unspecified angina pectoris; E78.00 Pure hypercholesterolemia, unspecified; H93.19 Tinnitus, unspecified ear; K21.9 Gastro-esophageal reflux disease without esophagitis; F41.8 Other specified anxiety disorders; Z87.442 Personal history of urinary calculi
CPT/HCPCS: 36415; 71046-TC-FY; 80048; 80053; 80061; 81003; 82550; 83721; 83735; 83880; 84484; 85025; 85610; 85730; 93005; 99285-25

== ENCOUNTER 2020-04-27 02:48 | Emergency (ER) | payer MEDICARE, OTHER ==
--- OUTSIDE RECORDS SUMMARY | 2020-04-27 02:55 | XMS ---
:1945 Author Organization [facility] Support Name Relationship Address Phone RE Unavailable Unavailable Unavailable SCOTT TYLER [address] [place] [address] Re-disclosure Warning The records that you are about to access may contain information from federally- assisted alcohol or drug abuse programs. If such information is present, then the following federally mandated warning applies: This information has been disclosed to you from records protected by federal confidentiality rules (42 CFR part 2). The federal rules prohibit you from making any further disclosure of this information unless further disclosure is expressly permitted by the written consent of the person to whom it pertains or as otherwise permitted by 42 CFR part 2. A general authorization for the release of medical or other information is NOT sufficient for this purpose. The Federal rules restrict any use of the information to criminally investigate or prosecute any alcohol or drug abuse patient.The records that you are about to access may contain highly sensitive health information, the redisclosure of which is protected by Article 27-F of the [facility] Public Health law. If you continue you may haveaccess to information: Regarding HIV / AIDS; Provided by facilities licensed or operated by the [facility] Office of Mental Health; or Provided by the [facility] Office for People With Developmental Disabilities. If such information is present, then the following [facility] mandated warning applies: This information has been disclosed to you from confidential records which are protected by state law. State law prohibits you from making any further disclosure of this information without the specific written consent of the person to whom it pertains, or as otherwise permitted by law. Any unauthorized further disclosure in violation of state law may result in a fine or usp sentence or both. A general authorization for the release of medical or other information is NOT sufficient authorization for further disclosure. Insurance Providers Payer name Policy type Policy ID Covered Covered libertarian's Policy P annette / Coverage libertarian ID relationship to [place] ormation type [place] [id number] SP [id number] CARE OPTIONS MEDICARE [id number] SP [id number] [facility] [id number] CARE OPTIONS Results ID Date Data Source [id number] 03/03/2020 11:00:00 AM EDT [facility] Name Value Range Interpretation Description Data Sup porting Code Source(s) Document(s ) SARS [facility] coronavirus 2 RNA This lab was ordered by [facility] and reported by [facility]. ID Date Data Source [id number] 12/14/2019 11:39:00 AM EDT [facility] Name Value Range Interpretation Description Data Sup porting Code Source(s) Document(s ) 2019 Novel [facility] Coronavirus RNA Interpretation Unspecified Specimen Qualitative SOPHIE Probe Detection This lab [facility] and reported by [facility]. ID Date Data Source [id number] 10/29/2019 05:32:00 PM EDT [facility] Name Value Range Interpretation Description Data Sup porting Code Source(s) Document(s ) 2019 Novel [facility] Coronavirus RNA Interpretation Unspecified Specimen Qualitative SOPHIE Probe Detection This lab was ordered by Oanh [id number] and reported by Oanh at [facility]. Procedure
[2020-04-27 02:59] VITALS: BP 157/93; PULSE 76; TEMP 97.7; BMI 29.0
[2020-04-27] MEDS ORDERED: metroNIDAZOLE 250 MG TABLET PO ONE (03:07)
[2020-04-27] MEDS ORDERED: SULFAMETHOXAZOLE/TRIMETHOPRIM 800MG/160MG D.S. TABLET PO ONE (03:07)
--- NOTE | 2020-04-27 03:07 | PDOC ---
History of Present Illness - General Chief Complaint: Pain, Acute Stated Complaint: PAIN FROM CAT BITE 2 DAYS AGO Time Seen by Provider: 04/27/20 02:58 History Source: Patient Exam Limitations: No Limitations - History of Present Illness Initial Comments: 04/27/20 03:16 Male who comes in complaining of being bit by a cat 2 days ago and now it is painful red and swollen. Patient has multiple areas where he said he was bit but only one is bothering him at this point. Patient otherwise denies any complaints. Allergies: as per nursing notes Past Medical History: Hypertension high cholesterol, coronary artery disease Social history: Lives with family. No smoking. No alcohol. No illicit drugs. Surgical history: None General: No fevers or chills, no weakness, no weight loss HEENT: No change in vision. No sore throat,. No ear pain CardioVascular: no chest discomfort. No shortness of breath Respiratory:No cough, or wheezing. Gastrointestinal: no nausea, vomiting, diarrhea or constipation, No rectal bleeding Genitourinary: No dysuria, hematuria, or frequency Musculoskeletal: No joint or muscle pain or swelling Neurologic: No headache, vertigo, dizziness or loss of consciousness Psychiatric: nor depression Skin: Cat bite right hand Endocrine: no increased thirst or abnormal weight change Allergic: no skin or latex allergy All other systems reviewed and normal GENERAL: The patient is awake, alert, and fully oriented, in no acute distress. HEENT:Head is normal with no signs of trauma. Eyes: Pupils equal, round and reactive to light, Ears, and Throat are normal. Neck is supple. No Lymphadenopathy. EXTREMITIES:atraumatic, Normal range of motion, no edema. NEUROLOGICAL: Normal speech, normal gait. PSYCH: Normal mood, normal affect. SKIN: Warm, Dry, normal turgor, there is several areas of cat bites that are nearly healed with the exception of one area on the right hand between the thumb and first finger that is slightly raised with some mild erythema and mild tenderness on palpation. 04/27/20 03:18 Assessment and plan: This is 74-year-old male with a cat bite to the right hand that I will start on antibiotics. Patient is allergic to penicillin so was given Bactrim and Flagyl. Prescriptions were sent to his pharmacy and patient was discharged. Past History - Medical History Allergies/Adverse Reactions: Allergies Allergy/AdvReac Type Severity Reaction Status Date / Time amoxicillin [Amoxicillin] Allergy Severe Difficulty Verified 06/13/19 14:15 Breathing Home Medications: Ambulatory Orders Amiodarone HCl 200 mg PO DAILY 04/27/20 Amlodipine Besylate 5 mg PO DAILY 04/27/20 Apixaban [Eliquis] 5 mg PO BID 04/27/20 Famotidine [Pepcid] 20 mg PO DAILY 04/27/20 Pantoprazole Sodium 40 mg PO DAILY 04/27/20 Sulfamethoxazole/Trimethoprim [Bactrim DS -] 1 tab PO BID #10 tablet 04/27/20 Telmisartan 40 mg PO DAILY 04/27/20 metroNIDAZOLE [Flagyl -] 500 mg PO TID #15 tablet 04/27/20 Cardiac Disorders: Yes (arrhythmia, A-fib, aortic anuerysm) COPD: No GI Disorders: Yes (h. pylori) HTN: Yes Hypercholesterolemia: Yes Kidney Stones: Yes Psychiatric Problems: Yes (anxiety) - Surgical History Abdominal Surgery: Yes (L inguinal hernia) Cardiac Surgery: Yes (CARDIAC ABLATION, FEB 2015) Orthopedic Surgery: (right knee sx) - Immunization History Immunization Up to Date: Yes - Psycho-Social/Smoking History Smoking Status: No Smoking History: Never smoked Have you smoked in the past 12 months: No Number of Cigarettes Smoked Daily: 0 Discharge - Discharge Information Problems reviewed: Yes Clinical Impression/Diagnosis: Cat bite Qualifiers: Encounter type: initial encounter Qualified Code(s): W55.01XA - Bitten by cat, initial encounter Condition: Stable Disposition: HOME - Admission No - Follow up/Referral Referrals: Meri Fitzgerald MD [Primary Care Provider] - - Patient Discharge Instructions Additional Instructions: Tylenol or Motrin as needed for pain Because you are allergic to penicillin I need to give you 2 antibiotics to cover the different pathogens that may be present. Take Bactrim 1 tablet twice a day for 5 days and Flagyl 1 tablet 3 times a day for 5 days. Return to the emergency department immediately with ANY new, persistent or worsening symptoms. Continue any medications as previously prescribed by your physician. You should follow up with your primary doctor as soon as possible regarding today's emergency department visit. . Please make sure your doctor reviews the results of your emergency evaluation. Thank you for coming to the Emergency Department today for your care. It was a pleasure to see you today. Please note that your evaluation is INCOMPLETE until you follow-up with your doctor. - Post Discharge Activity
[2020-04-27] MEDS ORDERED: metroNIDAZOLE 250 MG TABLET ONE (03:08)
[2020-04-27] MEDS ORDERED: SULFAMETHOXAZOLE/TRIMETHOPRIM 800MG/160MG D.S. TABLET ONE (03:08)
== END 2020-04-27 03:24 | disposition home or self-care (01) ==
LOC: FER 02:48
DX: W55.01XA Bitten by cat, initial encounter (principal)
CPT/HCPCS: 99284-25

== ENCOUNTER 2020-06-18 16:24 | Emergency (ER) | payer MEDICARE, OTHER ==
[2020-06-18 16:51] VITALS: BP 124/86; PULSE 79; TEMP 98.1; BMI 28.2
[2020-06-18] MEDS ORDERED: ACETAMINOPHEN 1000 MG/100 ML VIAL (NON FORMULARY) IVPB ONE (17:07)
[2020-06-18] MEDS ORDERED: FAMOTIDINE 20 MG/50 ML IVPB 20 MG/50 ML MG IVPB ONE ×3 (17:07→17:17)
[2020-06-18] MEDS ORDERED: SODIUM CHLORIDE 1,000 ML IV STA (17:07)
[2020-06-18] MEDS ORDERED: ONDANSETRON 4 MG/2 ML VIAL IVPUSH ONE (17:08)
[2020-06-18] MEDS ORDERED: ONDANSETRON 4 MG/2 ML VIAL ONE ×2 (17:15→17:17)
[2020-06-18] MEDS ORDERED: ACETAMINOPHEN INJECTION 100 ML IVPB ONE ×2 (17:15→17:17)
[2020-06-18 17:39] LABS: HEMATOCRIT 48.9 % (35.4-49); HEMOGLOBIN 16.5 GM/dl (11.7-16.9); MCH 33.9 pg (25.7-33.7); MCHC 33.8 g/dl (32.0-35.9); MEAN CELL VOLUME 100.2 fl (80-96); MEAN PLT VOLUME 8.6 fl (7.5-11.1); PLATELET COUNT 213 K/MM3 (134-434); RBC 4.88 M/mm3 (4.00-5.60); WHITE BLOOD COUNT 8.1 K/mm3 (4.0-10.8)
[2020-06-18 17:46] LABS: ACTIVATED PTT 36.6 SECONDS (25.2-36.5); ALBUMIN 4.2 g/dl (3.4-5.0); BILIRUBIN,TOTAL 0.8 mg/dl (0.2-1); CALCIUM 9.1 mg/dl (8.5-10); CREATININE 1.3 mg/dl (0.55-1.3); MAGNESIUM 2.6 mg/dL (1.8-2.4); PHOSPHOROUS 3.2 mg/dl (2.5-4.9); POTASSIUM 4.1 mmol/L (3.5-5.1)
[2020-06-18 17:51] LABS: INR 1.58 (0.82-1.09); PROTHROMBIN TIME (PATIENT) 17.2 SEC (10.2-13.0)
[2020-06-18 18:14] LABS: PLATELET ESTIMATE ADEQUATE
== END 2020-06-18 19:39 | disposition home or self-care (01) ==
LOC: FER 16:24
PROC: 3E033GC Introduction of Other Therapeutic Substance into Peripheral Vein, Percutaneous Approach (ICD-10-PCS; principal; 2020-06-18)
DX: R10.11 Right upper quadrant pain (principal); R10.31 Right lower quadrant pain
CPT/HCPCS: 36415; 74177-TC; 76705-TC; 80053; 82550; 83690; 83735; 84100; 84484; 85025; 85610; 85730; 93005; 99285-25; J0131; Q9967

== ENCOUNTER 2020-09-26 13:14 | Emergency (ER) | payer OTHER ==
[2020-09-26 13:20] VITALS: TEMP 97.7; BMI 29.0
[2020-09-26] MEDS ORDERED: FAMOTIDINE 20 MG/50 ML IVPB 20 MG/50 ML MG IVPB ONE ×2 (14:23→14:46)
[2020-09-26] MEDS ORDERED: LIDOCAINE VISCOUS 2% ORAL/TOP 20 ML UNIT-DOSE CUP MM ONE (14:23)
[2020-09-26] MEDS ORDERED: MAG HYDROX/AL HYDROX/SIMETH 30 ML UNIT-DOSE CUP PO ONE (14:23)
[2020-09-26] MEDS ORDERED: ONDANSETRON 4 MG/2 ML VIAL IVPUSH ONE (14:24)
[2020-09-26] MEDS ORDERED: ONDANSETRON 4 MG/2 ML VIAL ONE (14:46)
[2020-09-26] MEDS ORDERED: LIDOCAINE VISCOUS 2% ORAL/TOP 20 ML UNIT-DOSE CUP ONE (14:46)
[2020-09-26] MEDS ORDERED: MAG HYDROX/AL HYDROX/SIMETH 30 ML UNIT-DOSE CUP ONE (14:46)
[2020-09-26 15:02] LABS: ACTIVATED PTT 36.5 SECONDS (25.2-36.5)
[2020-09-26 15:04] LABS: ALBUMIN 3.9 g/dl (3.4-5.0); CALCIUM 8.9 mg/dl (8.5-10); CREATININE 1.3 mg/dl (0.55-1.3); MAGNESIUM 2.2 mg/dL (1.8-2.4); POTASSIUM 4.3 mmol/L (3.5-5.1); TOT PROT 6.3 g/dl (6.4-8.2)
[2020-09-26 15:06] LABS: INR 1.5 (0.82-1.09); PROTHROMBIN TIME (PATIENT) 16.4 SEC (10.2-13.0)
[2020-09-26 15:15] LABS: HEMATOCRIT 43.6 % (35.4-49); HEMOGLOBIN 14.6 GM/dl (11.7-16.9); MCH 31.8 pg (25.7-33.7); MCHC 33.5 g/dl (32.0-35.9); MEAN CELL VOLUME 94.8 fl (80-96); MEAN PLT VOLUME 8.5 fl (7.5-11.1); PLATELET COUNT 188 K/MM3 (134-434); RDW 13.3 % (11.9-15.9); WHITE BLOOD COUNT 6.9 K/mm3 (4.0-10.8)
[2020-09-26 17:04] VITALS: BP 117/89; PULSE 68
[2020-09-26] MEDS ORDERED: ACETAMINOPHEN 325 MG TABLET (FP) PO ONE (17:04)
[2020-09-26] MEDS ORDERED: ACETAMINOPHEN 325 MG TABLET (FP) ONE (17:06)
[2020-09-26 17:19] LABS: N-TERMINAL BNP 542.5 pg/ml (5-125)
[2020-09-26 18:52] LABS: PLATELET ESTIMATE ADEQUATE
== END 2020-09-26 18:25 | disposition left against medical advice (07) ==
LOC: FER 13:14
PROC: 3E033GC Introduction of Other Therapeutic Substance into Peripheral Vein, Percutaneous Approach (ICD-10-PCS; principal; 2020-09-26)
DX: R07.89 Other chest pain (principal); I71.9 Aortic aneurysm of unspecified site, without rupture; K21.9 Gastro-esophageal reflux disease without esophagitis
CPT/HCPCS: 36415; 71045-TC-FY; 71275-TC; 74174-TC; 80053; 82550; 83735; 83880; 84439; 84443; 84484; 85025; 85610; 85730; 87804; 93005; 99285-25; C9803; Q9967; U0003; U0005

== ENCOUNTER 2021-05-25 12:33 | Emergency (ER) | payer OTHER ==
[2021-05-25 12:49] VITALS: TEMP 97.8; BMI 26.6
[2021-05-25 13:39] LABS: ALBUMIN 3.9 g/dl (3.4-5.0); CALCIUM 8.8 mg/dl (8.5-10); CREATININE 1.1 mg/dl (0.55-1.3); TOT PROT 6.2 g/dl (6.4-8.2); URIC ACID 9.2 mg/dl (2.6-7.2)
[2021-05-25] MEDS ORDERED: ACETAMINOPHEN 500 MG TABLET (FP) PO ONE (13:53)
[2021-05-25] MEDS ORDERED: ACETAMINOPHEN 325 MG TABLET (FP) ONE (13:54)
[2021-05-25] MEDS ORDERED: ACETAMINOPHEN 1000 MG/100 ML VIAL IVPB ONE (14:01)
[2021-05-25] MEDS ORDERED: ACETAMINOPHEN INJECTION 100 ML IVPB ONE (14:07)
[2021-05-25 14:11] LABS: BASO % 0.4 % (0-2.0); EOS % 1.2 % (0-4.5); HEMATOCRIT 42.4 % (35.4-49); HEMOGLOBIN 14.3 GM/dL (11.7-16.9); LYMPH % 18.6 % (8-40); MCH 31.9 pg (25.7-33.7); MCHC 33.7 g/dl (32.0-35.9); MEAN CELL VOLUME 94.7 fl (80-96); MEAN PLT VOLUME 8.7 fl (7.5-11.1); NEUT % 69.8 % (42.8-82.8); PLATELET COUNT 178 10^3/uL (134-434); RBC 4.48 M/mm3 (4.00-5.60); RDW 13.7 % (11.9-15.9)
[2021-05-25] MEDS ORDERED: LIDOCAINE 5% TOPICAL PATCH TP ONE (16:53)
[2021-05-25] MEDS ORDERED: LIDOCAINE 5% TOPICAL PATCH ONE (17:11)
[2021-05-25 18:12] VITALS: BP 134/72; PULSE 64
[2021-05-25] MEDS ORDERED: LIDOCAINE PATCH REMOVAL MC SCH (22:00)
== END 2021-05-25 18:30 | disposition home or self-care (01) ==
LOC: FER 12:33
PROC: 3E033NZ Introduction of Analgesics, Hypnotics, Sedatives into Peripheral Vein, Percutaneous Approach (ICD-10-PCS; principal; 2021-05-25)
DX: M79.605 Pain in left leg (principal); R10.2 Pelvic and perineal pain
CPT/HCPCS: 36415; 71275-TC; 75635-TC; 76870-TC; 80053; 81003; 81015; 84550; 85025; 86140; 87086; 99285-25; J0131

== ENCOUNTER 2021-07-12 19:47 | Emergency (ER) | payer OTHER ==
[2021-07-12 20:41] VITALS: BP 160/71; PULSE 69; TEMP 97.9; BMI 27.4
== END 2021-07-12 21:32 | disposition home or self-care (01) ==
LOC: FER 19:47
DX: Z86.79 Personal history of other diseases of the circulatory system (principal)
CPT/HCPCS: 99283-25

== ENCOUNTER 2021-09-04 22:14 | Observation (INO) | payer OTHER ==
[2021-09-04 23:53] LABS: ALBUMIN 4.4 g/dl (3.4-5.0); BILIRUBIN,TOTAL 1.1 mg/dl (0.2-1); CALCIUM 9.5 mg/dl (8.5-10); CREATININE 1.1 mg/dl (0.55-1.3); TOT PROT 7.5 g/dl (6.4-8.2)
[2021-09-04 23:58] LABS: BASO % 0.5 % (0-2.0); EOS % 1.5 % (0-4.5); HEMATOCRIT 44.5 % (35.4-49); HEMOGLOBIN 15.4 GM/dL (11.7-16.9); MCH 32.2 pg (25.7-33.7); MCHC 34.5 g/dl (32.0-35.9); MEAN CELL VOLUME 93.2 fl (80-96); MEAN PLT VOLUME 8.1 fl (7.5-11.1); MONO % 9.3 % (3.8-10.2); NEUT % 50.7 % (42.8-82.8); PLATELET COUNT 171 10^3/uL (134-434); RBC 4.78 M/mm3 (4.00-5.60); RDW 14.5 % (11.9-15.9); WHITE BLOOD COUNT 7.7 K/mm3 (4.0-10.0)
[2021-09-05] MEDS ORDERED: METOPROLOL TARTRATE 25 MG TABLET (FP) PO ONE (00:47)
[2021-09-05] MEDS ORDERED: METOPROLOL TARTRATE 25 MG TABLET (FP) ONE (00:51)
[2021-09-05 06:33] VITALS: BMI 26.6
[2021-09-05 07:59] LABS: CREATININE 1.1 mg/dl (0.55-1.3)
[2021-09-05] MEDS ORDERED: ASPIRIN 81 MG CHEWABLE TABLETS PO SCH (10:00)
[2021-09-05 10:20] LABS: BASO % 0.5 % (0-2.0); EOS % 1.3 % (0-4.5); HEMATOCRIT 42.3 % (35.4-49); HEMOGLOBIN 14.6 GM/dL (11.7-16.9); LYMPH % 32.4 % (8-40); MCH 32.2 pg (25.7-33.7); MCHC 34.4 g/dl (32.0-35.9); MEAN CELL VOLUME 93.6 fl (80-96); MEAN PLT VOLUME 8.4 fl (7.5-11.1); MONO % 10.7 % (3.8-10.2); NEUT % 55.1 % (42.8-82.8); PLATELET COUNT 158 10^3/uL (134-434); RBC 4.52 M/mm3 (4.00-5.60); RDW 14.8 % (11.9-15.9); WHITE BLOOD COUNT 6.8 K/mm3 (4.0-10.0)
[2021-09-05] MEDS ORDERED: PATIENT'S OWN MEDICATION (NON-FORMULARY) (Telmisartan [Telmisartan] 40 MG Tablet) PO SCH (11:00)
[2021-09-05] MEDS ORDERED: APIXABAN 5 MG TABLET PO SCH (11:00)
[2021-09-05] MEDS ORDERED: PANTOPRAZOLE 40 MG TABLET PO SCH (11:00)
[2021-09-05] MEDS ORDERED: LOSARTAN POTASSIUM 50 MG TABLET PO SCH (11:15)
[2021-09-05] MEDS ORDERED: LIDOCAINE 5% TOPICAL PATCH TP SCH (13:00)
[2021-09-05 13:56] VITALS: BP 119/68; PULSE 67; TEMP 98.1
[2021-09-05] MEDS ORDERED: LIDOCAINE PATCH REMOVAL MC SCH (22:00)
[2021-09-05] MEDS ORDERED: clonazePAM 0.5 MG TABLET PO SCH (22:00)
[2021-09-06] MEDS ORDERED: amLODIPine BESYLATE 5 MG TABLET (FP) PO SCH (10:00)
[2021-09-06] MEDS ORDERED: METHIMAZOLE 5 MG TABLET PO SCH (10:00)
== END 2021-09-05 17:43 | disposition home or self-care (01) ==
LOC: FER 22:14 → FM/S 09-05 01:57
PROVIDERS: ADMIT Internal Medicine; ATTEND Internal Medicine
DX: I10 Essential (primary) hypertension (principal); F41.9 Anxiety disorder, unspecified; I48.91 Unspecified atrial fibrillation; E78.5 Hyperlipidemia, unspecified; I71.4 Abdominal aortic aneurysm, without rupture; M10.9 Gout, unspecified; I48.3 Typical atrial flutter; I71.2 Thoracic aortic aneurysm, without rupture; Z79.01 Long term (current) use of anticoagulants; Z88.1 Allergy status to other antibiotic agents
CPT/HCPCS: 36415; 71045-TC-FY; 80048; 80053; 80061; 81003; 81015; 82550; 84443; 84484; 85025; 87426; 93005; 93306-TC; 99285-25; C9803; G0378; U0003; U0005

== ENCOUNTER 2022-10-02 11:30 | Emergency (ER) | payer OTHER ==
[2022-10-02 11:49] VITALS: TEMP 98; BMI 27.4
[2022-10-02 12:26] LABS: BILIRUBIN,TOTAL 0.8 mg/dl (0.2-1); CALCIUM 8.8 mg/dl (8.5-10); CREATININE 1.4 mg/dl (0.55-1.3); TOT PROT 6.7 g/dl (6.4-8.2)
[2022-10-02] MEDS ORDERED: SODIUM CHLORIDE 1,000 ML IV ONE (13:11)
[2022-10-02 14:39] LABS: HEMATOCRIT 43.1 % (35.4-49); MCH 32.9 pg (25.7-33.7); MCHC 34.7 g/dl (32.0-35.9); MEAN CELL VOLUME 94.8 fl (80-96); MEAN PLT VOLUME 8.2 fl (7.5-11.1); PLATELET COUNT 178 10^3/uL (134-434); RBC 4.55 M/mm3 (4.00-5.60); RDW 13.4 % (11.9-15.9); WHITE BLOOD COUNT 6.7 K/mm3 (4.0-10.0)
[2022-10-02 15:29] VITALS: BP 142/75; PULSE 61; RESP 16
== END 2022-10-02 15:00 | disposition home or self-care (01) ==
LOC: FER 11:30
PROC: 3E0337Z Introduction of Electrolytic and Water Balance Substance into Peripheral Vein, Percutaneous Approach (ICD-10-PCS; principal; 2022-10-02)
DX: R53.1 Weakness (principal); R53.81 Other malaise
CPT/HCPCS: 36415; 80053; 81003; 84443; 84484; 85027; 93005; 99284-25

== ENCOUNTER 2022-11-12 10:50 | Emergency (ER) | payer OTHER ==
[2022-11-12 11:04] VITALS: BP 122/73; PULSE 66; RESP 18; TEMP 97.2; BMI 29.0
[2022-11-12] MEDS ORDERED: ACETAMINOPHEN 325 MG TABLET (FP) PO ONE (11:38)
[2022-11-12] MEDS ORDERED: ACETAMINOPHEN 325 MG TABLET (FP) ONE (11:57)
== END 2022-11-12 14:02 | disposition home or self-care (01) ==
LOC: FER 10:50
DX: M79.672 Pain in left foot (principal)
CPT/HCPCS: 73502-TC-LT-FY; 73562-TC-LT-FY; 73630-TC-LT; 93971-LT; 99285-25

== ENCOUNTER 2022-12-15 17:51 | Emergency (ER) | payer OTHER ==
[2022-12-15 18:03] VITALS: BP 123/74; PULSE 60; RESP 18; TEMP 98.9; BMI 28.2
== END 2022-12-15 19:30 | disposition home or self-care (01) ==
LOC: FER 17:51 → JER 17:51 → FER 19:30
DX: M79.622 Pain in left upper arm (principal); M71.22 Synovial cyst of popliteal space [Baker], left knee
CPT/HCPCS: 93971-TC; 99284-25

== ENCOUNTER 2023-02-08 14:40 | Emergency (ER) | payer OTHER ==
[2023-02-08 14:57] VITALS: BP 140/90; PULSE 65; RESP 16; TEMP 98; BMI 28.2
[2023-02-08] MEDS ORDERED: SODIUM CHLORIDE 0.9% 500 ML INFUS.BAG IV ONE (15:03)
[2023-02-08] MEDS ORDERED: FAMOTIDINE 20 MG/50 ML IVPB 20 MG in PREMIX 50 IVPB ONE (15:03)
[2023-02-08] MEDS ORDERED: FAMOTIDINE 20 MG/50 ML IVPB 20 MG/50 ML MG IVPB ONE (15:40)
[2023-02-08 16:15] LABS: HEMATOCRIT 45.3 % (35.4-49); HEMOGLOBIN 15.5 G/dL (11.7-16.9); MCH 33.8 pg (25.7-33.7); MCHC 34.1 g/dl (32.0-35.9); MEAN CELL VOLUME 99.1 fl (80-96); MEAN PLT VOLUME 7.7 fl (7.5-11.1); RBC 4.57 10^6/uL (4.00-5.60); RDW 14.8 % (11.9-15.9); WHITE BLOOD COUNT 6.7 10^3/uL (4.0-10.8)
[2023-02-08 16:40] LABS: BLOOD UREA NITROGEN 15.9 mg/dl (7-18); CREATININE 1.1 mg/dl (0.6-1.3)
[2023-02-08 16:41] LABS: CALCIUM 9.2 mg/dl (8.5-10.1); MAGNESIUM 2.2 mg/dL (1.8-2.4); PHOSPHOROUS 3.68 (2.5-4.9); POTASSIUM 3.9 mmol/L (3.5-5.1); TOT PROT 6.4 g/dl (6.4-8.2)
[2023-02-08 16:42] LABS: SGOT/AST 16.4 U/L (15-37); SGPT/ALT 14.1 U/L (7-52)
[2023-02-08 17:37] LABS: PLATELET ESTIMATE ADEQUATE
[2023-02-08 19:01] LABS: BILIRUBIN,TOTAL 0.7 mg/dL (0.2-1)
== END 2023-02-08 19:01 | disposition home or self-care (01) ==
LOC: FER 14:40
PROC: 3E033GC Introduction of Other Therapeutic Substance into Peripheral Vein, Percutaneous Approach (ICD-10-PCS; principal; 2023-02-08)
DX: R53.1 Weakness (principal)
CPT/HCPCS: 36415; 71045-TC-FY; 80053; 81003; 83690; 83735; 84100; 84443; 84484; 85027; 93005; 99285-25

== ENCOUNTER 2023-06-25 16:21 | Emergency (ER) | payer OTHER ==
[2023-06-25 16:37] VITALS: BP 129/82; PULSE 70; RESP 18; TEMP 98.3; BMI 27.4
[2023-06-25] MEDS ORDERED: ACETAMINOPHEN 1000 MG/100 ML BAG IVPB ONE (17:03)
[2023-06-25] MEDS ORDERED: ACETAMINOPHEN INJECTION 100 ML IVPB ONE (17:23)
[2023-06-25 17:32] LABS: HEMATOCRIT 41.5 % (35.4-49); HEMOGLOBIN 14.3 G/dL (11.7-16.9); MCH 33.5 pg (25.7-33.7); MCHC 34.5 g/dl (32.0-35.9); MEAN CELL VOLUME 96.9 fl (80-96); MEAN PLT VOLUME 8.3 fl (7.5-11.1); RBC 4.28 10^6/uL (4.00-5.60); RDW 13.9 % (11.9-15.9); WHITE BLOOD COUNT 6.5 10^3/uL (4.0-10.8)
[2023-06-25 17:44] LABS: BILIRUBIN,TOTAL 0.7 mg/dl (0.2-1); CALCIUM 8.8 mg/dl (8.5-10.1); CREATININE 1.3 mg/dl (0.6-1.3); POTASSIUM 4.2 mmol/L (3.5-5.1); TOT PROT 6.2 g/dl (6.4-8.2)
== END 2023-06-25 19:04 | disposition home or self-care (01) ==
LOC: FER 16:21
PROC: 3E033NZ Introduction of Analgesics, Hypnotics, Sedatives into Peripheral Vein, Percutaneous Approach (ICD-10-PCS; principal; 2023-06-25)
DX: M54.42 Lumbago with sciatica, left side (principal); R10.31 Right lower quadrant pain; R11.0 Nausea
CPT/HCPCS: 36415; 71045-TC-FY; 80053; 83690; 84484; 85025; 93005; 99285-25

== ENCOUNTER 2023-09-02 12:40 | Emergency (ER) | payer OTHER ==
[2023-09-02 13:02] VITALS: BP 157/86; PULSE 72; RESP 18; TEMP 97.4; BMI 27.4
[2023-09-02] MEDS ORDERED: KETOROLAC TROMETHAMINE 15 MG/ML VIAL ONE (13:27)
[2023-09-02] MEDS ORDERED: METHOCARBAMOL 500 MG TABLET ONE (13:27)
[2023-09-02] MEDS: KETOROLAC TROMETHAMINE 15 MG/ML VIAL IVPUSH ONE (13:30)
[2023-09-02] MEDS: SODIUM CHLORIDE 0.9% 500 ML INFUS.BAG IV ONE (14:04)
[2023-09-02] MEDS: METHOCARBAMOL 500 MG TABLET PO ONE (14:07)
[2023-09-02 14:08] LABS: HEMATOCRIT 43.4 % (35.4-49); MCH 32.3 pg (25.7-33.7); MCHC 32.2 g/dl (32.0-35.9); MEAN CELL VOLUME 100.2 fl (80-96); MEAN PLT VOLUME 8.3 fl (7.5-11.1); PLATELET COUNT 142.2 10^3/uL (134-434); RBC 4.33 10^6/uL (4.00-5.60); RDW 14.1 % (11.9-15.9); WHITE BLOOD COUNT 6.9 10^3/uL (4.0-10.8)
[2023-09-02 14:10] LABS: INR 1.51 (0.83-1.09); PROTHROMBIN TIME (PATIENT) 17.4 SEC (9.7-13.0)
[2023-09-02 14:22] LABS: ALBUMIN 3.8 g/dl (3.4-5.0); BILIRUBIN,TOTAL 0.5 mg/dl (0.2-1); CALCIUM 8.7 mg/dl (8.5-10.1); CREATININE 1.3 mg/dl (0.6-1.3); POTASSIUM 3.8 mmol/L (3.5-5.1); TOT PROT 5.8 g/dl (6.4-8.2)
[2023-09-02 15:02] LABS: EPITHELIAL CELLS 0-5 /hpf
== END 2023-09-02 15:40 | disposition home or self-care (01) ==
LOC: FER 12:40
PROC: 3E0333Z Introduction of Anti-inflammatory into Peripheral Vein, Percutaneous Approach (ICD-10-PCS; principal; 2023-09-02)
DX: M54.6 Pain in thoracic spine (principal); S29.012A Strain of muscle and tendon of back wall of thorax, initial encounter; X58.XXXA Exposure to other specified factors, initial encounter
CPT/HCPCS: 36415; 71045-TC-FY; 80053; 81003; 81015; 82550; 84484; 85025; 85610; 87086; 93005; 99285-25

== ENCOUNTER 2023-12-05 15:02 | Emergency (ER) | payer OTHER ==
[2023-12-05 15:12] VITALS: BP 157/93; PULSE 74; RESP 16; TEMP 97.3; BMI 27.4
[2023-12-05 15:53] LABS: INR 1.35 (0.83-1.09); PROTHROMBIN TIME (PATIENT) 15.3 SEC (9.7-13.0)
[2023-12-05 15:55] LABS: ACTIVATED PTT 42.7 SECONDS (25.2-36.5)
[2023-12-05 15:57] LABS: HEMATOCRIT 45.2 % (35.4-49); HEMOGLOBIN 14.7 G/dL (11.7-16.9); MCH 32.3 pg (25.7-33.7); MCHC 32.4 g/dl (32.0-35.9); MEAN CELL VOLUME 99.7 fl (80-96); MEAN PLT VOLUME 8.5 fl (7.5-11.1); PLATELET COUNT 151.8 10^3/uL (134-434); RBC 4.53 10^6/uL (4.00-5.60); RDW 14.1 % (11.9-15.9); WHITE BLOOD COUNT 6.7 10^3/uL (4.0-10.8)
[2023-12-05] MEDS: SODIUM CHLORIDE 1,000 ML IV STA (15:57)
[2023-12-05 16:07] LABS: ALBUMIN 4.3 g/dl (3.4-5.0); BILIRUBIN,TOTAL 0.6 mg/dl (0.2-1); CALCIUM 9.2 mg/dl (8.5-10.1); CREATININE 1.3 mg/dl (0.6-1.3); POTASSIUM 4.4 mmol/L (3.5-5.1); TOT PROT 6.4 g/dl (6.4-8.2)
[2023-12-05 16:37] LABS: PLATELET ESTIMATE ADEQUATE
[2023-12-05] MEDS ORDERED: ACETAMINOPHEN INJECTION 100 ML IVPB ONE (17:26)
[2023-12-05] MEDS: ACETAMINOPHEN 1000 MG/100 ML BAG IVPB ONE (17:32)
== END 2023-12-05 19:18 | disposition home or self-care (01) ==
LOC: FER 15:02
PROC: 3E033NZ Introduction of Analgesics, Hypnotics, Sedatives into Peripheral Vein, Percutaneous Approach (ICD-10-PCS; principal; 2023-12-05)
PROC: 3E0337Z Introduction of Electrolytic and Water Balance Substance into Peripheral Vein, Percutaneous Approach (ICD-10-PCS; 2023-12-05)
DX: R55 Syncope and collapse (principal); R42 Dizziness and giddiness; R10.9 Unspecified abdominal pain; Z20.822 Contact with and (suspected) exposure to COVID-19
CPT/HCPCS: 0241U-QW; 36415; 70450-TC; 71046-TC-FY; 80053; 81003; 83605; 84443; 84484; 85027; 85610; 85730; 87086; 93005; 99285-25; J0131

== ENCOUNTER 2023-12-28 15:20 | Emergency (ER) | payer OTHER ==
[2023-12-28 16:09] VITALS: BP 147/86; PULSE 70; RESP 18; TEMP 98; BMI 27.4
[2023-12-28] MEDS ORDERED: IBUPROFEN 600 MG TABLET (FP) PO ONE ×2 (16:12→16:59)
[2023-12-28 16:44] LABS: HEMOGLOBIN 14.6 G/dL (11.7-16.9); MCHC 33.1 g/dl (32.0-35.9); MEAN CELL VOLUME 99.8 fl (80-96); MEAN PLT VOLUME 8.1 fl (7.5-11.1); RBC 4.41 10^6/uL (4.00-5.60); RDW 13.7 % (11.9-15.9); WHITE BLOOD COUNT 6.9 10^3/uL (4.0-10.8)
[2023-12-28 16:47] LABS: PLATELET ESTIMATE ADEQUATE
[2023-12-28 16:53] LABS: BILIRUBIN,TOTAL 0.6 mg/dl (0.2-1); CALCIUM 8.9 mg/dl (8.5-10.1); CREATININE 1.6 mg/dl (0.6-1.3); POTASSIUM 4.3 mmol/L (3.5-5.1); TOT PROT 6.1 g/dl (6.4-8.2)
[2023-12-28] MEDS ORDERED: ACETAMINOPHEN 325 MG TABLET (FP) ONE (17:01)
[2023-12-28] MEDS: ACETAMINOPHEN 500 MG TABLET (FP) PO ONE (17:13)
== END 2023-12-28 18:30 | disposition home or self-care (01) ==
LOC: FER 15:20
DX: R07.89 Other chest pain (principal); R79.89 Other specified abnormal findings of blood chemistry
CPT/HCPCS: 36415; 71046-TC-FY; 80053; 84484; 85027; 93005; 99285-25

== ENCOUNTER 2024-03-11 13:27 | Emergency (ER) | payer OTHER ==
[2024-03-11 13:36] VITALS: BP 165/85; PULSE 73; RESP 20; TEMP 97.7; BMI 27.4
[2024-03-11] MEDS: LACTATED RINGERS SOLUTION 1000 ML INFUS.BAG IV ONE (14:31)
[2024-03-11 14:48] LABS: HEMATOCRIT 43.4 % (35.4-49); HEMOGLOBIN 14.4 G/dL (11.7-16.9); MCH 32.8 pg (25.7-33.7); MCHC 33.1 g/dl (32.0-35.9); MEAN CELL VOLUME 98.9 fl (80-96); MEAN PLT VOLUME 8.4 fl (7.5-11.1); PLATELET COUNT 158.2 10^3/uL (134-434); RBC 4.39 10^6/uL (4.00-5.60); RDW 13.8 % (11.9-15.9); WHITE BLOOD COUNT 7.1 10^3/uL (4.0-10.8)
[2024-03-11 14:52] LABS: PLATELET ESTIMATE ADEQUATE
[2024-03-11 14:57] LABS: BILIRUBIN,TOTAL 0.8 mg/dl (0.2-1); CALCIUM 8.6 mg/dl (8.5-10.1); CREATININE 1.4 mg/dl (0.6-1.3); MAGNESIUM 2.4 mg/dL (1.8-2.4); POTASSIUM 4.3 mmol/L (3.5-5.1)
== END 2024-03-11 16:08 | disposition home or self-care (01) ==
LOC: FER 13:27
DX: R53.1 Weakness (principal); J18.9 Pneumonia, unspecified organism; R53.83 Other fatigue; R35.0 Frequency of micturition
CPT/HCPCS: 36415; 71045-TC-FY; 80053; 81003; 83735; 84443; 84484; 85027; 87086; 93005; 99285-25

== ENCOUNTER 2024-05-18 05:59 | Emergency (ER) | payer OTHER ==
[2024-05-18 06:04] VITALS: BMI 27.4
[2024-05-18 08:34] LABS: BASO % 0.4 % (0-2.0); EOS % 1.8 % (0-4.5); HEMATOCRIT 44.9 % (35.4-49); HEMOGLOBIN 15.2 GM/dL (11.7-16.9); LYMPH % 14.8 % (8-40); MCH 33.7 pg (25.7-33.7); MCHC 33.8 g/dl (32.0-35.9); MEAN CELL VOLUME 99.7 fl (80-96); MEAN PLT VOLUME 7.9 fl (7.5-11.1); MONO % 7.6 % (3.8-10.2); NEUT % 75.4 % (42.8-82.8); PLATELET COUNT 160 10^3/uL (134-434); RBC 4.51 M/mm3 (4.00-5.60); RDW 13.5 % (11.9-15.9)
[2024-05-18 08:58] LABS: POTASSIUM 4.5 mmol/L (3.5-5.1)
[2024-05-18 09:00] LABS: CALCIUM 8.9 mg/dL (8.5-10.1)
[2024-05-18 09:01] LABS: ALBUMIN 3.8 g/dl (3.4-5.0); MAGNESIUM 2.7 mg/dL (1.8-2.4)
[2024-05-18 09:04] LABS: CREATININE 1.3 mg/dL (0.55-1.3); PHOSPHOROUS 1.5 mg/dL (2.5-4.9)
[2024-05-18 09:05] LABS: INR 1.28 (0.83-1.09); PROTHROMBIN TIME (PATIENT) 14.4 SEC (9.7-13.0)
[2024-05-18 09:06] LABS: BILIRUBIN,TOTAL 0.7 mg/dL (0.2-1); TOT PROT 6.7 g/dl (6.4-8.2)
[2024-05-18 09:08] LABS: URINE APPEARANCE CLEAR; URINE BILIRUBIN NEGATIVE (NEGATIVE); URINE COLOR YELLOW; URINE GLUCOSE (UA) NEGATIVE (NEGATIVE); URINE KETONE NEGATIVE (NEGATIVE); URINE LEUK ESTERASE NEGATIVE (NEGATIVE); URINE NITRITE NEGATIVE (NEGATIVE); URINE PROTEIN NEGATIVE (NEGATIVE); URINE UROBILINOGEN 0.2 mg/dL (0.2-1.0)
[2024-05-18 09:08] LABS: ACTIVATED PTT 36.5 SECONDS (25.2-36.5)
[2024-05-18] MEDS ORDERED: NAPH,MB-DB/K PH,MBDB POWDER PACKET ONE (09:54)
[2024-05-18] MEDS: NAPH,MB-DB/K PH,MBDB POWDER PACKET PO ONE (10:01)
[2024-05-18 16:01] VITALS: BP 157/89; PULSE 75; RESP 16; TEMP 98.4
== END 2024-05-18 11:14 | disposition home or self-care (01) ==
LOC: JER 05:59
DX: R53.1 Weakness (principal); R42 Dizziness and giddiness; R30.0 Dysuria; Z20.822 Contact with and (suspected) exposure to COVID-19
CPT/HCPCS: 0241U-QW; 36415; 71045-TC-FY; 80053; 81003; 82550; 82962; 83735; 84100; 84484; 85025; 85610; 85730; 87086; 93005; 93010; 99285-25

== ENCOUNTER 2025-01-28 20:50 | Emergency (ER) | payer OTHER ==
[2025-01-28 20:59] VITALS: BP 158/88; PULSE 76; RESP 18; TEMP 98.4; BMI 22.8
[2025-01-28 21:53] LABS: ABSOLUTE IMMATURE GRANULOCYTES 0.02 x10^3/uL (0.0-0.031); BASOPHILS # 0.04 x10^3/uL (0.01-0.08); EOSINOPHIL % 0.8 % (0.8-7.0); EOSINOPHILS # 0.06 x10^3/uL (0.04-0.54); MCHC 34.9 g/dl (32.3-36.5); MEAN CELL VOLUME 95.5 fl (79.0-92.2); MEAN PLT VOLUME 9.5 fl (9.4-12.4); MONOCYTE # 0.82 x10^3/uL (0.30-0.82); MONOCYTE % 10.6 % (5.3-12.2); RDW 12.1 % (12.2-16.6)
[2025-01-28 22:11] LABS: CO2 28.0 mmol/L (21-32); GLUCOSE,RANDOM 123.0 mg/dL (74-106)
[2025-01-28 22:14] LABS: CREATININE 1.1 mg/dL (0.55-1.3); SGOT/AST 17.0 U/L (15-37); SGPT/ALT 21.0 U/L (13-61)
[2025-01-28 22:16] LABS: TOT PROT 6.0 g/dl (6.4-8.2)
[2025-01-28 22:17] LABS: ALK PHOS 52.0 U/L (45-117)
[2025-01-28] MEDS ORDERED: POTASSIUM CHLORIDE ORAL LIQUID 20 MEQ/15 ML ONE (22:44)
[2025-01-28] MEDS: POTASSIUM CHLORIDE ORAL LIQUID 20 MEQ/15 ML PO ONE (23:14)
[2025-01-28] MEDS ORDERED: SODIUM PHOSPHATE/NA BIPHOS 133 ML ENEMA PR ONE (23:29)
[2025-01-28] MEDS ORDERED: DOCUSATE SODIUM 100 MG CAPSULE (FP) PO ONE (23:38)
[2025-01-28] MEDS: DOCUSATE SODIUM 100 MG CAPSULE (FP) PO ONE (23:43)
[2025-01-28] MEDS: POLYETHYLENE GLYCOL (HEALTHYLAX) 3350 17 GM PACKET PO SCH (23:44)
[2025-01-28] MEDS ORDERED: LACTULOSE 20 GM/30 ML UDC (FOR ORAL USE ONLY) PO ONE (23:53)
[2025-01-28] MEDS ORDERED: LACTULOSE 20 GM/30 ML UDC (FOR ORAL USE ONLY) ONE (23:57)
[2025-01-31 17:17] LABS: HIV INTERPRETATION NEGATIVE (NEGATIVE)
[2025-01-31 23:10] LABS: HCV DIAGNOSTIC IN-HOUSE W/RFLX NON-REACTIVE (NONREACTIVE)
== END 2025-01-29 00:48 | disposition home or self-care (01) ==
LOC: JER 20:50
DX: K59.00 Constipation, unspecified (principal); R10.31 Right lower quadrant pain; R14.0 Abdominal distension (gaseous)
CPT/HCPCS: 36415; 74177-TC; 80053; 83605; 85025; 86803; 87389; 99285-25

== ENCOUNTER 2025-02-19 15:10 | Emergency (ER) | payer OTHER ==
[2025-02-19 15:38] VITALS: TEMP 97.4; BMI 26.6
[2025-02-19] MEDS ORDERED: POLYETHYLENE GLYCOL (HEALTHYLAX) 3350 17 GM PACKET ONE (16:28)
[2025-02-19] MEDS ORDERED: BISACODYL 10 MG SUPP.RECT ONE (16:29)
[2025-02-19] MEDS ORDERED: ONDANSETRON 4 MG/2 ML VIAL IVPUSH ONE (16:44)
[2025-02-19] MEDS ORDERED: TRIMETHOBENZAMIDE HCL 200MG/2ML INJ IM ONE (17:30)
[2025-02-19] MEDS: TRIMETHOBENZAMIDE HCL 200MG/2ML INJ IM ONE (17:30)
[2025-02-19 17:38] LABS: MCHC 34.8 g/dl (32.3-36.5); MEAN CELL VOLUME 97.3 fl (79.0-92.2); MEAN PLT VOLUME 10.2 fl (9.4-12.4); RDW 12.1 % (12.2-16.6)
[2025-02-19 18:20] LABS: HIV INTERPRETATION NEGATIVE (NEGATIVE)
[2025-02-19 18:21] LABS: HCV DIAGNOSTIC IN-HOUSE W/RFLX NON-REACTIVE (NONREACTIVE)
[2025-02-19] MEDS: SODIUM CHLORIDE 0.9% 500 ML INFUS.BAG IV ONE (19:03)
[2025-02-19 20:45] VITALS: RESP 19
[2025-02-19] MEDS: BISACODYL 10 MG SUPP.RECT PR ONE (20:45)
[2025-02-19] MEDS: POLYETHYLENE GLYCOL (HEALTHYLAX) 3350 17 GM PACKET PO ONE (20:45)
[2025-02-19 22:04] LABS: GLUCOSE,RANDOM 158.0 mg/dL (74-106); TOT PROT 6.8 g/dl (6.4-8.2)
[2025-02-19 22:05] LABS: CO2 22.0 mmol/L (21-32)
[2025-02-19 22:07] LABS: ALK PHOS 49.0 U/L (40-150)
[2025-02-19 22:09] LABS: SGOT/AST 33.0 U/L (5-34); SGPT/ALT 20.0 U/L (0-55)
[2025-02-19 22:10] LABS: CREATININE 1.05 mg/dL (0.55-1.3)
[2025-02-20 00:39] LABS: URINE APPEARANCE CLEAR; URINE BILIRUBIN NEGATIVE (NEGATIVE); URINE COLOR YELLOW; URINE GLUCOSE (UA) TRACE (NEGATIVE); URINE KETONE TRACE (NEGATIVE); URINE LEUK ESTERASE NEGATIVE (NEGATIVE); URINE NITRITE NEGATIVE (NEGATIVE); URINE PROTEIN NEGATIVE (NEGATIVE); URINE UROBILINOGEN 0.2 mg/dL (0.2-1.0)
[2025-02-20 01:59] VITALS: BP 139/76; PULSE 86
== END 2025-02-20 01:44 | disposition home or self-care (01) ==
LOC: JER 15:10
PROC: 3E023GC Introduction of Other Therapeutic Substance into Muscle, Percutaneous Approach (ICD-10-PCS; principal; 2025-02-19)
DX: K59.00 Constipation, unspecified (principal); R11.10 Vomiting, unspecified; R14.3 Flatulence; R10.11 Right upper quadrant pain
CPT/HCPCS: 36415; 74176-TC; 80053; 81003; 83605; 83735; 84484; 85027; 86803; 87086; 87389; 93005; 93010; 99285-25